=== PATIENT | female | born 1940 | race Caucasian/White ===

== ENCOUNTER 2019-01-29 15:01 | Outpatient (RCR) | payer MEDICARE, SELFPAY ==
[2019-01-30 09:20] LABS: Color, Urine Yellow (Yellow); Glucose, Dipstick Normal (Normal); Ketone-Dipstick Negative (Negative); Leukocyte Esterase-Dipstick 500 /ul (Negative); Nitrite-Dipstick Negative (Negative); Occult Blood-Urine 250 /ul (Negative); Protein-Dipstick 30 mg/dl (Negative); Specific Gravity, Urine 1.025 (1.002-1.030); Urine Bilirubin Dipstick Negative (Negative); Urine Clarity Cloudy (Clear); Urine Urobilinogen Normal (Normal)
== END 2019-01-31 23:59 ==
LOC: HHLAB 15:01
PROVIDERS: Family Provider Family Medicine; PCP Family Medicine; Referring Provider Family Medicine; Visit Provider Family Medicine
DX: S32.030D Wedge compression fracture of third lumbar vertebra, subsequent encounter for fracture with routine healing (principal); G20 Parkinson's disease; G25.81 Restless legs syndrome; N39.0 Urinary tract infection, site not specified
CPT/HCPCS: 81002; 87086; 87088

== ENCOUNTER → 2019-02-01 | Outpatient (CLI) | payer MEDICARE, SELFPAY ==
[2019-02-01 16:50] LABS: Bacteria 0 SEEN /hpf (None Seen); Mucous, Urine 0 SEEN /hpf (<or=2+)
[2019-02-01 16:53] LABS: Color, Urine Yellow (Yellow); Glucose, Dipstick Normal (Normal); Ketone-Dipstick 50 mg/dl (Negative); Leukocyte Esterase-Dipstick 500 /ul (Negative); Nitrite-Dipstick Negative (Negative); Occult Blood-Urine 50 /ul (Negative); Protein-Dipstick 30 mg/dl (Negative); Specific Gravity, Urine 1.025 (1.002-1.030); Urine Bilirubin Dipstick Negative (Negative); Urine Clarity Sl. Cloudy (Clear); Urine Urobilinogen Normal (Normal)
[2019-02-01 17:02] LABS: Red Blood Cells-Urine 0-5 SEEN /hpf (0-5); White Blood Cells 25-50 SEEN /hpf (0-5)
[2019-02-01 17:03] LABS: Amorphous Sediment 3+ URATE; Squamous Epithelial Cells - UA 0-5 SEEN /hpf (5-10)
== END | disposition home or self-care (01) ==
LOC: HH 16:46
PROVIDERS: Family Provider Family Medicine; PCP Family Medicine; Visit Provider Family Medicine
DX: G25.81 Restless legs syndrome (principal); G20 Parkinson's disease; S32.030D Wedge compression fracture of third lumbar vertebra, subsequent encounter for fracture with routine healing
CPT/HCPCS: 81001; 87086; 87088

== ENCOUNTER 2019-02-11 15:09 | Outpatient (RCR) | payer MEDICARE, SELFPAY ==
[2019-02-11 16:58] LABS: Color, Urine Yellow (Yellow); Glucose, Dipstick Normal (Normal); Ketone-Dipstick Negative (Negative); Leukocyte Esterase-Dipstick 500 /ul (Negative); Nitrite-Dipstick Positive (Negative); Occult Blood-Urine 25 /ul (Negative); Protein-Dipstick 15 mg/dl (Negative); Specific Gravity, Urine 1.015 (1.002-1.030); Urine Clarity Sl. Cloudy (Clear); Urine Urobilinogen 1 mg/dl (Normal)
[2019-02-11 17:00] LABS: Urine Bilirubin Dipstick 1 mg/dL (Negative)
== END 2019-03-02 23:59 ==
LOC: HHLAB 15:09
PROVIDERS: Family Provider Family Medicine; PCP Family Medicine; Referring Provider Family Medicine; Visit Provider Family Medicine
DX: S32.030D Wedge compression fracture of third lumbar vertebra, subsequent encounter for fracture with routine healing (principal); G20 Parkinson's disease; G25.81 Restless legs syndrome; N39.0 Urinary tract infection, site not specified
CPT/HCPCS: 81002; 87086; 87088

== ENCOUNTER 2019-03-10 14:33 | Emergency (ER) | payer MEDICARE, SELFPAY ==
[2019-03-10 14:34] VITALS: BP 139/69; PULSE 94; RESP 16; TEMP 36.9; O2SAT 97; BMI 30.3
--- NOTE | 2019-03-10 15:20 | ED.VIS.GEN ---
History of Present Illness Chief Complaint: Other, Pain/Inj Informant: Patient Onset: Days - Onset Sunday day after bilateral toxic epidural injection Context: Sudden Onset Timing: Continuous Quality: Pain Location: Low back Current Severity: Mild Maximum Severity: Severe Worsened by: Any type of movement Relieved by: Nothing Associated Symptoms: No new symptoms other than than increased pain radiating posterior LLE Narrative: Patient is an elderly woman who presents by ambulance because she could not go to Dr. Phelps's office and apparently physical therapy spoke to Dr. Thompson and was instructed to have her come to the emergency department. After further questioning was determined that the squad cannot transport her to a physician's office. She is a very poor informant. Spoke with Dr. Thompson and his office staff. March 04 she had an injection toxic area bilaterally. She denies bowel incontinence. Please had urinary incontinence for 1.5 years. She has nonuse of her right lower extremity secondary to prior stroke. She denies fever, chills night sweats. She states she did quite well day of injection. Day after injection she was in horrible pain. She navigates by wheeling herself in a wheelchair and will use her walker to assist stand up to transfer to commode. Prior similar symptoms: No Recent Illness/Hospitalization: Yes - Read narrative Past Medical History - Allergies and Home Meds Allergies/Adverse Reactions: Allergies morphine Allergy (Verified 03/10/19 14:40) Anaphylaxis Penicillins [PCN] Allergy (Verified 03/10/19 14:40) Unknown Primary Care Physician: Viraj Alvares DO [Primary Care Provider] - Prior records reviewed: Yes - Talk with Dr. Stokes and office staff Surgical History: - - Back surgery. Patient is not certain what was done Lives: Alone Smoking Status: Former smoker Alcohol: None Review of Systems General: Denies: Chills, Fever, Malaise, Sweats, Weight loss Cardiovascular: Denies: Chest pain, Palpitations, Heart racing Respiratory: Denies: Dyspnea, Cough, Dyspnea on exertion Gastrointestinal: Denies: Abdominal pain, Nausea, Vomiting, Diarrhea, Constipation, Melena, Hematochezia Genitourinary: Denies: Dysuria, Frequency Musculoskeletal: Reports: Back pain, Extremity Pain - Posterior left lower extremity. Denies: Myalgias, Arthralgias, Neck pain, Swelling Skin: Denies: Rash Neurological: Reports: Parasthesia - Left lower extremity. Patient unable to describe where she has numbness.. Denies: Headache Hematologic: Denies: Easy bruising, Easy bleeding Allergy: Denies: Uticaria, Swelling of the mouth Physical Exam Vital Signs/Narrative: Vital Signs Temp Pulse Resp BP Pulse Ox 03/10/19 14:34 98.5 F 94 16 139/69 H 97 General: Well nourished, Well developed, No Acute Distress Head: Normocephalic, Atraumatic Eyes: Perrl, EOMI ENT: Moist mucous membranes, No rhinorrhea Neck: Supple, Nontender Cardiovascular: Regular rate, Regular rhythm, No murmurs Respiratory: No distress, CTA bilaterally, Chest nontender Abdomen: Soft, Nontender, Nondistended, Normal bowel sounds Back: Normal Inspection. Negative for: Nontender - Tenderness over the sacrum bilaterally. There is no erythema, warmth, fluctuance noted., Spinal tenderness Extremities: Nontender, No edema, - - Has scar secondary to right and left total knee arthroplasty. Skin: Normal color, No rash Neurological: Alert, Oriented x3, Cranial nerves II-XII grossly intact, Normal Strength, Normal Sensation, Normal DTR - 1+ patella and ankle and symmetric. Patient does have bilateral Babinski sign. Psychological: Depressed Diagnostic/Tx/Re-eval - Medical Decision Making Since patient reports anaphylaxis to morphine and does not know what she can or cannot take and the only new complaint is return of pain to level of intensity prior to injection. She has no new neurologic symptoms. After spending 25 minutes with patient, speaking with Dr. Phelps and office staff case management was consulted to determine what could be done for this patient based on her history, complaints and allergies. Case management did see patient. She informed patient and daughter that she does not meet criteria for admission. Daughter states she will not be able to get her from the emergency room until 9 PM. Therefore patient will wait in the emergency department until daughter was able to pick her up. ED Disposition - Plan for ED Patient: Disposition: Home or Assisted Living Diagnosis: Low back pain radiating down leg Instructions: BACK PAIN (Acute or Chronic) Referrals: Viraj Alvares DO [Primary Care Provider] - As Needed Jovan Arroyo MD [STAFF PHYSICIAN] - 3-5 Days if not improving
--- NOTE | 2019-03-10 16:15 | CM.ED ---
Social Work Consult: Discharge Planning Informant: Dr. Keaton Pugh stating to not be sure what the plan is for patient as patient is stating that Dr. Arroyo's office wanted patient to come to the ED, but when Dr. Pugh spoke with Dr. Arroyo, Dr. Arroyo was not aware that patient was coming into the ED. Spoke with patient in room. Patient informing this social service director that Dr. Arroyo wanted to see patient in the office and that since patient did not have transportation to the office Dr. Arroyo's office advised patient to come to the ED. This social service director stating that it is unclear what the ED is to do for patient at this time as patient needs to see Dr. Arroyo. This social service director recommending for patient to go to Dr. Arroyo's office. Patient reporting to not have transportation and that patient daughter will not be getting off work until 5:30 and then patient daughter needs to get another vehicle as patient is unable to get into patient daughters vehicle and it might be 9pm until patient daughter is able to come and pick patient up. Patient reporting to get around the home with a wheelchair and a front wheeled walker for transfers to commode. Patient reporting to live alone and to have a ramp to enter the home. This social service director inquired about supports within the home. Patient reporting to currently have [facility] and to have a medical alert system. Patient stating to have also attempted to set up [facility] services in the past but to not be able to get things set up due to [facility] not calling patient back. Patient agreeable to this social service director contacting home health about current services. This social service director spoke with Alivia, patient P.Ayad Bunch stating that patient qualified for [facility] services but that patient had an out of pocket cost of $220/month. This social service director broached [facility] outcome to patient, patient stating to be aware of this and to have been waiting a return phone call to set up the services. This social service director encouraged patient to continue to get in contact with [facility] with the goal of setting up aides within the home. Patient reporting to also be waiting on a phone call from [facility] services. Patient stating that patient was doing okay with mobility within the home until a P.T. told patient to no longer get up and walk and to only use the wheelchair. Patient stating to believe that staying in the wheelchair has made patient weaker and thus making living within the home harder. Patient stating to not be interested in assisted living or [place] as patient had a [place] a [place] and is unable to afford assisted living. Patient daughter and granddaughter are patient main source for transportation, but both parties work full-time and are limited on when they are able to provide transportation for patient. Patient reporting to have a neighbor that assist patient with grocery shopping. Patient reporting no needs at home. This social service director encouraging patient to follow up with [facility] referral at this could be a good option for patient. Patient agreeable to this social service director talking to patient daughterEstefani. Support provided to patient. Telephone call to Estefani Jara stating frustration with patient and that Estefani has been trying to get patient to move to a [place] for a few years now. Estefani planning to come and pick pack worker patient later this evening and aware of the miscommunication with Dr. Arroyo's office. Estefani voicing no further concerns. Ayad Song MSW, JOVANY
[2019-03-10 17:18] VITALS: BP 125/60; PULSE 94; RESP 16; O2SAT 99
== END 2019-03-10 18:59 | disposition home or self-care (01) ==
PROVIDERS: Emergency Provider Emergency Medicine; Family Provider Family Medicine; PCP Family Medicine
DX: M54.5 Low back pain (principal); R20.2 Paresthesia of skin; M79.605 Pain in left leg; Z86.73 Personal history of transient ischemic attack (TIA), and cerebral infarction without residual deficits; Z87.891 Personal history of nicotine dependence
CPT/HCPCS: 99284

== ENCOUNTER 2020-07-25 19:36 | Observation (INO) | payer MEDICARE, MEDICAID, SELFPAY ==
[2020-07-25 19:42] VITALS: BP 118/59; PULSE 115; RESP 16; TEMP 36.8; O2SAT 95; BMI 34.5
--- NOTE | 2020-07-25 20:06 | CT_ITS ---
STUDY: CT BRAIN WITHOUT CONTRAST REASON FOR EXAM: Female, 80 years old. Generalized illness left sided shaking emesis RADIATION DOSAGE (If Supplied By Facility): CTDIvol = ( 44.99 ) mGy, DLP = ( 863.60 ) mGycm TECHNIQUE: Transaxial CT imaging of the brain was performed without administration of intravenous contrast material. Individualized dose optimization techniques were used for this CT. COMPARISON: No relevant priors. FINDINGS: Brain parenchyma is without focal lesions, mass effect, acute intracranial hemorrhage, extra parenchymal fluid collections, hydrocephalus or herniation. The skull is intact. CT/Brain/Head without Contrast IMPRESSION: 1. Normal CT brain. Electronically Signed: Magali Alvarez, at 20:50 EST Tel , Service support ,
--- NOTE | 2020-07-25 20:09 | ED.VISSUMM ---
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 She has had kidney stones. She is in multiple surgeries. Reportedly today around 1:30 PM at the nursing she started not feeling well she was nauseated. Nursing staff said she started nausea vomiting and she was shaking on her left side. She also complained of a global headache she is a history of migraines but this was a little different than her migraines. No fever. No abdominal pain. Physical Examination: Elderly female no acute distress vital signs stable afebrile. Pulse ox 95% on room air no signs hypoxia. H EENT exam unremarkable moist with membranes. No facial droop. Normal speech. Neck nontender. Lungs clear to auscultation bilaterally. Heart tachycardic rate about 115 no murmur. Breath sounds equal symmetrical. Abdomen soft nontender normal bowel sounds no peritoneal signs. No signs of obstruction. No distention. Patient has paralysis right upper and lower extremity that is not movements from prior stroke she has normal range of motion and strength to the left upper and left lower extremity. Neurologically she is awake and alert she is answering questions following commands. She has normal speech. She has no facial droop. Again paralysis right upper and lower extremity which is chronic from an old CVA. Test Results: Chest x-ray portable 1 view read by myself shows no acute abnormality. Normal cardiac silhouette. No infiltrate. Radiologist also read the film and agrees. CAT scan of the brain without contrast shows no acute abnormality. Read as normal by the radiologist and I reviewed the film. CBC shows a white count of 9. Hemoglobin 13. No bands chemistries unremarkable normal creatinine gap. UA positive for blood negative nitrates 10-25 white cells 10-25 red cells rare bacteria this will be treated UTI this was a cath specimen. Lactic acid 1.6 blood cultures pending. Prior rapid Covid at the prison was negative. Emergency Department Course and Treatment: I spoke to the nurse at the prison. She told me a similar story with the patient having nausea vomiting and shaking on her left side. They did a rapid Covid at the prison which was reportedly negative. Patient received IV fluids. Zofran for nausea. Tylenol for headache. CAT scan labs are being obtained. She still complained of a headache was given dose of fentanyl. And was started on IV Rocephin for UTI. Urine culture and blood cultures are being obtained. Treatment Plan: Hospitalist on page for admission. Disposition: Admission Impression: Acute nausea and vomiting Acute headache History of CVA with right-sided paralysis Acute UTI This note was generated with [employer] dictation software. It may contain incorrect words, spelling, and punctuation that were not noted in review of the chart prior to signing ED Disposition - Plan for ED Patient: Referrals: Viraj Alvares DO [COURTESY STAFF PHYSICIAN] -
[2020-07-25 20:15] LABS: Absolute Lymphocyte Count 1.42 X10^3/uL (0.83-4.51); Absolute Neutrophil Count 7.3 X10^3/uL (2.0-7.7); Basophil# 0.02 X10^3/uL; Basophil% 0.2 % (0-1); Eosinophil# 0.03 X10^3/uL; Eosinophils% 0.3 % (0-5); Hematocrit 42.6 % (37-47); Hemoglobin 13.6 g/dL (12.0-15.0); Lymphocyte # 1.42 X10^3/ul (4.0); Lymphocyte % 15.5 % (19-41); Mean Corp Hgb Conc 31.9 g/dL (32-36); Mean Corpuscular Hgb 31.3 pg (27.0-32.0); Mean Corpuscular Volume 98.2 fL (81-99); Monocyte# 0.35 X10^3/uL; Monocyte% 3.8 % (0-10); NRBC Flagged by Analyzer 0 % (0-5); Neutrophil # 7.34 X10^3/uL (2.7-7.7); Neutrophil % 79.9 % (47-70); Platelet Count 115 K/mm3 (150-450); RBC Distribution Width CV 13.1 % (11.6-14.6); Red Blood Count 4.34 M/mm3 (4.2-5.4); White Blood Count 9.2 K/mm3 (4.4-11.0)
[2020-07-25] MEDS: 0.9% Normal Saline 1,000 ML 1000 ML IV (20:18)
[2020-07-25] MEDS: Ondansetron 4 MG/2 ML Vial IV (20:19)
[2020-07-25] MEDS: Acetaminophen 500 MG Tablet 1000 MG PO (20:19)
[2020-07-25 20:24] LABS: Anion Gap 6 (5-15); BUN 16 mg/dL (7-18); BUN/Creat Ratio 28.9 RATIO (10-20); Calcium,Total 8.9 mg/dL (8.5-10.1); Chloride 106 mmol/L (98-107); Creatinine, Serum 0.55 mg/dL (0.55-1.02); EST Glomerular Filtration Rate 113 mL/min (>60); Est Glom Filt Rate - Afr Amer 136 mL/min (>60); Glucose 142 mg/dL (74-106); Potassium 4.2 mmol/L (3.5-5.1); Sodium Level 141 mmol/L (136-145)
[2020-07-25 20:40] LABS: Mucous, Urine 0 SEEN /hpf (<or=2+)
--- NOTE | 2020-07-25 20:40 | RAD_ITS ---
STUDY: X-RAY CHEST REASON FOR EXAM: Female, 80 years old. chills, vomiting TECHNIQUE: Frontal view of the chest COMPARISON: None. FINDINGS: The lungs are clear and expanded. There is no demonstrated pleural abnormality. Normal size heart. Normal mediastinum and zulma. Normal visualized pulmonary arteries. Normal visualized aortic arch and descending thoracic aorta. Normal visualized thoracic spine. Normal visualized ribs, clavicles, and shoulders. There is no demonstrated abnormality of the visualized soft tissue structures of the upper abdomen. RAD/Chest 1 View (Portable) IMPRESSION: Normal x-ray examination of the chest. Electronically Signed: Magali Alvarez, at 20:50 EST Tel , Service support ,
[2020-07-25 20:42] VITALS: BP 105/47; PULSE 104; RESP 13; TEMP 37; O2SAT 95
[2020-07-25 20:55] LABS: Color, Urine Yellow (Yellow); Glucose, Dipstick Normal (Normal); Ketone-Dipstick Negative (Negative); Leukocyte Esterase-Dipstick 500 /ul (Negative); Nitrite-Dipstick Negative (Negative); Occult Blood-Urine 150 /ul (Negative); Protein-Dipstick 30 mg/dl (Negative); Urine Bilirubin Dipstick Negative (Negative); Urine Clarity Cloudy (Clear); Urine Urobilinogen Normal (Normal)
[2020-07-25 20:58] LABS: Lactic Acid 1.6 mmol/L (0.4-1.9)
[2020-07-25 21:01] LABS: Amorphous Sediment 1+; Bacteria RARE /hpf (None Seen); Red Blood Cells-Urine 10-25 SEEN /hpf (0-5); Squamous Epithelial Cells - UA 0-5 SEEN /hpf (5-10); Transitional Epithelial - Ur 0-5 SEEN /hpf (0-5); White Blood Cells 10-25 SEEN /hpf (0-5)
[2020-07-25 21:40] VITALS: BP 103/52; PULSE 105; RESP 15; TEMP 36.9; O2SAT 96
[2020-07-25 22:30] VITALS: BP 103/60; PULSE 102; RESP 13; TEMP 36.9; O2SAT 95
--- NOTE | 2020-07-25 22:56 | PCM.HP.STD ---
Problem List (1) Intractable migraine Status: Acute Qualifiers: Migraine type: unspecified (2) UTI (urinary tract infection) Status: Acute Qualifiers: Urinary tract infection type: site unspecified (3) History of stroke Status: Chronic (4) Hyperlipidemia Status: Chronic Qualifiers: Hyperlipidemia type: unspecified Qualified Code(s): E78.5 - Hyperlipidemia, unspecified (5) Obesity Status: Chronic Qualifiers: Obesity type: due to excess calories Obesity classification: adult class 2 (BMI 35 - 39.9) Serious obesity comorbidity presence: unspecified whether serious comorbidity present Body mass index: BMI 36.0-36.9 Qualified Code(s): E66.09 - Other obesity due to excess calories; Z68.36 - Body mass index [BMI] 36.0-36.9, adult (6) Restless leg syndrome Status: Chronic (7) Chronic kidney disease, stage III (moderate) Status: Chronic Qualifiers: Chronic kidney disease stage 3 subtype: unspecified whether 3a or 3b Qualified Code(s): N18.30 - Chronic kidney disease, stage 3 unspecified History of Present Illness Date of Admission: 07/25/20 Chief Complaint: Intractable migraine, N/V/light and sound sensitivity, dysuria/chills The patient is a 80 y/o F from SNF w/ PMHx: Hx CVA with R sided hemiparesis, Obesity, GERD, Chronic neuropathy, GERD, HLD, RLS who presents to the [facility] ED on 07/25/20 with history of onset approximately 130 significant fatigue, malaise, intractable nausea and emesis with chills specifically noted to be shaking primarily the left side of her body secondary to history of prior CVA with right-sided hemiparesis with additional complaint of onset of frontal throbbing migraine with light and sound sensitivity rated initially to 10 out of 10 in severity however following ED pain regimen improved to 6 out of 10 in severity upon evaluation. She notes it is similar to prior migraines but more severe and has not let up. She does state that she has felt as though she is had dysuria with some concern for urinary tract infection. Work-up in the ED included T 98.2, heart rate 115, BP 118/59, respiratory rate 16, 95% on room air, CBC with WC 9.2, hemoglobin 13.6, platelet 115 without marked shift, BMP with glucose 142 otherwise not marked appearing, lactic acid 1.6, urinalysis with specific raphe 1.020, 150 occult blood, negative nitrite, 500 leukocyte esterase, urine WBCs 10-25 with rare bacteria noted, urine culture pending per ED, chest x-ray with no acute cardiopulmonary findings, CT of the brain with no acute intracranial findings, rapid Covid testing negative. In the ED patient administered normal saline, Zofran, fentanyl 25 mcg IV x1, Tylenol, Rocephin 1 g IV x1. Past Medical History Past Medical History (Chronic Problems): Chronic Problems History of stroke (Chronic) Hyperlipidemia (Chronic) Obesity (Chronic) Restless leg syndrome (Chronic) Chronic kidney disease, stage III (moderate) (Chronic) Allergies morphine Allergy (Verified 07/25/20 19:41) Anaphylaxis Penicillins [PCN] Allergy (Verified 07/25/20 19:41) Unknown Home Medications: Ambulatory Orders Medication Instructions Recorded Aspirin/Acetaminophen/Caffeine 1 ea PO [id number] 07/25/20 [Excedrin Extra Strength Caplet] Atorvastatin Calcium [Lipitor] 10 mg PO DAILY 07/25/20 Gabapentin [Neurontin] 100 mg PO BID 07/25/20 Lansoprazole [Prevacid] 15 mg PO DAILY 07/25/20 Magnesium Hydroxide [Milk of 30 ml PO DAILY PRN 07/25/20 Magnesia] Polyethylene Glycol 3350 17 gm PO DAILY 07/25/20 Ropinirole HCl 0.25 mg PO QHS 07/25/20 Tramadol HCl 50 mg PO BID PRN 07/25/20 Surgical History: - - Bilateral total knee replacement, foot surgery, tonsillectomy, appendectomy, cholecystectomy, x1, lumbar back surgery. 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 Tobacco Use: Non-smoker Alcohol: None Drugs: None - *Family History Maternal History Items: Heart Disease Paternal History Items: Dementia Review of Systems Constitutional: Reports: Anorexia, Chills, Malaise, Weakness, Fatigue. Denies: Fever, Weight Change HEENT: Reports: Head Aches, - - Light and sound sensitivity.. Denies: Sinus Congestion, Sinus Drainage Cardiovascular: Denies: Chest Pain, Palpitations Respiratory: Denies: Cough, Shortness of breath at rest, Sputum production Gastrointestinal: Reports: Nausea, Vomiting. Denies: Abdominal Pain Genitourinary: Reports: Dysuria Musculoskeletal: Reports: Back Pain, Joint Pain, Leg Pain. Denies: Joint Tenderness Skin: Denies: Rash, Wounds Neurological: Reports: Slurred speech, Focal weakness, Numbness. Denies: Tingling Psychiatric: Denies: Anxiety, Depression, Homicidal Ideations, Suicidal Ideations Hematologic/ Lymphatic: Denies: Easy Bruising, Easy Bleeding VTE Information - Inpt Only VTE Present on Admission: No VTE Mechan Device Prophylaxis: SCD's VTE Pharm Prophylaxis ordered?: Yes Patient Problems: Active and Suspected Problems Intractable migraine (Acute) UTI (urinary tract infection) (Acute) Subjective: Patient seated upright in the ED bed, fatigued, notes light and sound sensitivity. Objective: Physical Examination: General: awake, alert, oriented x 3 and cooperative, seated upright in the ED bed, uncomfortable appearing, notes light and sound sensitivity ongoing. Skin: normal color, turgor, no icterus, cyanosis. HEENT: AT/NC, EOMI, PERRLA, moderately dry MM, no carotid bruits or JVD noted. Lungs: CTA bilaterally, moderate effort, moderate decrease BL bases, no rales, ronchi or wheezing. Heart: Tachycardic with regular rhythm; no gallop, rub audible. Abdomen: soft, obese, some mild suprapubic discomfort, ND, normal BS, no HSM. Extremities: no cyanosis or clubbing, chronic right-sided hemiplegia, mild bilateral ankles edema, nonpitting. Neurological: patient awake, alert, oriented as noted; cognitive function suspect baseline intact; mild slurred speech likely secondary to stroke, chronic; pupils equally reactive to light and accomodation; cranial nerves II-XII grossly normal, chronic right-sided hemiplegia unchanged, strength severely globally decreased. Psychiatric: affect appears fatigued, mildly uncomfortable appearing, flat, no acute evidence of depressive or anxiety feelings. - Physical Exam Vitals/I&O's: Vital Signs Temp Pulse Resp BP Pulse Ox 98.5 F 102 H 13 103/60 95 07/25/20 22:30 07/25/20 22:30 07/25/20 22:30 07/25/20 22:30 07/25/20 22:30 Oxygen Delivery Method Room Air Weight: 177 lb 0.499 oz Body Mass Index (BMI) 34.5 Intake and Output for Last 24 Hours 07/23/20 07/24/20 07/25/20 23:59 23:59 23:59 Intake Total 1000 / 1000 Balance 1000 / 1000 Laboratory Results 07/25/20 19:50: WBC 9.2, RBC 4.34, Hgb 13.6, Hct 42.6, MCV 98.2, MCH 31.3, MCHC 31.9 L, RDW Std Deviation 47.0 H, RDW Coeff of Valerie 13.1, Plt Count 115 L, MPV 12.0, Immature Gran % (Auto) 0.300, Neut % (Auto) 79.9 H, Lymph % (Auto) 15.5 L, Swain % (Auto) 3.8, Eos % (Auto) 0.3, Baso % (Auto) 0.2, Absolute Neuts (auto) 7.3, Absolute Lymphs (auto) 1.42, Nucleated RBC % 0 07/25/20 19:50: Sodium 141, Potassium 4.2, Chloride 106, Carbon Dioxide 29.0, Anion Gap 6, BUN 16, Creatinine 0.55, Estim Creat Clear Calc 33.30, Est GFR (MDRD) Af Amer 136, Est GFR (MDRD) Non-Af 113, BUN/Creatinine Ratio 28.9 H, Glucose 142 H, Calcium 8.9 07/25/20 20:17: Lactic Acid 1.6 07/25/20 20:30: Urine Color Yellow, Urine Clarity Cloudy, Urine pH 6.0, Ur Specific Andes 1.020, Urine Protein 30 H, Urine Glucose (UA) Normal, Urine Ketones Negative, Urine Occult Blood 150 H, Urine Nitrite Negative, Urine Bilirubin Negative, Urine Urobilinogen Normal, Ur Leukocyte Esterase 500 H, Urine RBC 10-25 SEEN, Urine WBC 10-25 SEEN, Ur Squamous Epith Cells 0-5 SEEN, Ur Transition Epith Cell 0-5 SEEN, Amorphous Sediment 1+, Urine Bacteria RARE, Urine Mucus 0 SEEN Current Medications Ceftriaxone Sodium (Rocephin) 1 gm in 50 mls @ 100 mls/hr IV X1 ONE Stop: 07/25/20 23:10 Assessment/Plan All Active Problems Intractable migraine (Acute) UTI (urinary tract infection) (Acute) The patient is a 80 y/o F from SNF w/ PMHx: Hx CVA with R sided hemiparesis, Obesity, GERD, Chronic neuropathy, GERD, HLD, RLS who presents to the [facility] ED on 07/25/20 with history of onset approximately 130 significant fatigue, malaise, intractable nausea and emesis with chills specifically noted to be shaking primarily the left side of her body secondary to history of prior CVA with right-sided hemiparesis with additional complaint of onset of frontal throbbing migraine with light and sound sensitivity rated initially to 10 out of 10 in severity in addition to dysuria. 1. Acute Persistent Intractable Migraine: Will admit to medical surgical floor, hold narcotic therapy give this may exacerbate migraine, initiate IV VPA 500mg Q6 hours, IV Decadron 4mg Q6 hours, IV Toradol 30mg Q6 hours prn and PO Neurontin 300mg TID with meals. If patient STRONG does not improve will proceed with MRI of brain with MRA of head. 2. Acute Urinary Tract Infection: UA upon ED evaluation minimally remarkable, however pending UCx, continue IVFs, monitor I/Os, continue IV Rocephin w/ transition as able pending sensitivities and speciation or discontinuation if no marked growth. 3. Hyperglycemia: Suspect likely stress response, will obtain hemoglobin A1c to be cautious 4. Chronic neuropathy, radiculopathy: We will continue patient home Neurontin and tramadol as needed regimen. 5. Restless leg syndrome: We will continue patient home Requip regimen. 6. Hyperlipidemia: Continue home statin regimen. 7. Obesity: Weight loss and lifestyle changes encouraged. 8. History of CVA: Chronic right-sided hemiplegia, will continue patient aspirin, statin therapy, not on any hypertensive regimen with no history of high blood pressure, nondiabetic, will continue every 2 positional changes, barrier agents as needed. 9. Chronic Kidney Disease Stage III: Admission BUN/Cr 16/0.55, suspect near baseline but will plan repeat BMP in AM. 10. DVT prophylaxis: SCDs, Lovenox. 11. CODE status: Patient HCPJAG is Berny Ybarra her ex- and living will is currently in place. Discussed CODE status at length including difference between FULL code, DNR-CCA and DNR-CC status. Following discussions about the differences in these status, requested Full Code status. Advanced Care Planning Face to Face Time: 16 minutes. OBSV E&M: 20868 Initial observation care L3 Procedures: [id number] Advncd Care Plan 30 Min
--- NOTE | 2020-07-25 23:16 | ED.RN ---
[facility] was called by this RN and informed of pt admission. This RN asked for daughters phone number. The RN at the [facility] did not know the number but was looking into it and then will call this RN back so that we are able to update family on pt admission.
[2020-07-25] MEDS: Ceftriaxone 1 GM/50 ML BAG IV (23:21)
[2020-07-25] MEDS: fentaNYL 100 MCG/2 ML Ampul 25 MCG IV (23:27)
[2020-07-25 23:29] VITALS: BP 108/62; PULSE 102; RESP 11; TEMP 36.9; O2SAT 93
[2020-07-25 23:30] VITALS: BP 106/60; PULSE 104; RESP 13; TEMP 36.9; O2SAT 93
[2020-07-26] VITALS (12 sets, daily range): BP systolic 105–133; BP diastolic 53–71; PULSE 61–100; RESP 18; TEMP 36.4–37; O2SAT 93–97; BMI 36.6
[2020-07-26] MEDS: Ketorolac 15 MG/ML Vial IV ×3 (01:16→21:19)
[2020-07-26] MEDS: Famotidine 20 MG Tablet PO ×3 (01:16→21:28)
[2020-07-26] MEDS: Gabapentin 100 MG Capsule PO ×2 (01:16→06:23)
[2020-07-26] MEDS: dexAMETHasone 4 MG/ML Vial IV ×2 (01:17→06:23)
[2020-07-26] MEDS: 0.9% Normal Saline 1,000 ML 100 ML IV ×3 (01:18→21:14)
--- NOTE | 2020-07-26 02:07 | NURSING ---
PER CONVERSATION W/[facility] AND THE [facility], FLORY WILL CALL PT'S EX- TO OBTAIN PT'S DTR'S NEW CELL PHONE NUMBER. FLORY WILL ATTEMPT TO NOTIFY DTR THAT PT HAS BEEN ADMITTED.
[2020-07-26 05:52] LABS: Absolute Lymphocyte Count 1.16 X10^3/uL (0.83-4.51); Absolute Neutrophil Count 6.2 X10^3/uL (2.0-7.7); Basophil# 0.01 X10^3/uL; Basophil% 0.1 % (0-1); Eosinophil# 0.01 X10^3/uL; Eosinophils% 0.1 % (0-5); Hematocrit 39.4 % (37-47); Hemoglobin 12.7 g/dL (12.0-15.0); Lymphocyte # 1.16 X10^3/ul (4.0); Lymphocyte % 15.6 % (19-41); Mean Corp Hgb Conc 32.2 g/dL (32-36); Mean Corpuscular Hgb 31.5 pg (27.0-32.0); Mean Corpuscular Volume 97.8 fL (81-99); Mean Platelet Vol. 11.8 fl (6.2-12.0); Monocyte# 0.07 X10^3/uL; Monocyte% 0.9 % (0-10); NRBC Flagged by Analyzer 0 % (0-5); Neutrophil # 6.16 X10^3/uL (2.7-7.7); POSITIVE COUNT YES; Platelet Count 97 K/mm3 (150-450); RBC Distribution Width CV 13.2 % (11.6-14.6); RBC Distribution Width SD 47.4 fl (35.1-43.9); Red Blood Count 4.03 M/mm3 (4.2-5.4); White Blood Count 7.4 K/mm3 (4.4-11.0)
[2020-07-26 06:14] LABS: ALB/GLOB Ratio 0.7 RATIO (0.9-2.4); AST(SGOT) 16 U/L (15-37); Alanine Aminotransfer ALT/SGPT 12 U/L (13-56); Albumin, Serum 2.8 g/dL (3.2-5.0); Alkaline Phosphatase 102 U/L (45-117); Anion Gap 5 (5-15); BUN 13 mg/dL (7-18); BUN/Creat Ratio 25.6 RATIO (10-20); Calcium,Total 8.6 mg/dL (8.5-10.1); Chloride 110 mmol/L (98-107); Creatinine, Serum 0.51 mg/dL (0.55-1.02); EST Glomerular Filtration Rate 125 mL/min (>60); Est Glom Filt Rate - Afr Amer 151 mL/min (>60); Estimated Creatinine Clearance 61.85 ml/min; Globulin 3.9 g/dL (2.2-4.2); Glucose 115 mg/dL (74-106); Potassium 4.6 mmol/L (3.5-5.1); Protein, Total 6.7 g/dL (6.4-8.2); Sodium Level 141 mmol/L (136-145)
[2020-07-26] MEDS: 0.9% Saline Lock 10 ML Syringe IV (06:23)
[2020-07-26 07:46] LABS: Hemoglobin A1c 5.2 % (3.8-5.6)
--- NOTE | 2020-07-26 09:37 | CASEMGMT ---
Addendum entered by Yudith Subramanian 07/26/20 14:57: ARGENTINA faxed update clinicals to [facility]. Original Note: Social Work Note Pt is listed as being from [facility]. ARGENTINA placed a call to Mónica at [facility]. Mónica states pt is [facility]dc resident, is able to return when medically cleared. Mónica states if pt [facility] within 72 hours, pt will not new COVID test. Plan: Return to [facility] once medically cleared Yudith Subramanian CHEERLEADING COACH, CYBER SPECIAL AGENT
[2020-07-26] MEDS: proMETHazine 25 MG/ML Syringe 12.5 MG IV (10:10)
[2020-07-26] MEDS: Aspirin 81 MG TAB.CHEW PO (10:10)
[2020-07-26] MEDS: DiphenhydrAMINE 50 MG/ML Syringe 25 MG IV (10:13)
[2020-07-26] MEDS: dexAMETHasone 4 MG/ML Vial 2 MG IV (10:16)
[2020-07-26] MEDS: Menthol/Lanolin/Calamine/Znox 113 GM Tube 1 APPLIC TOPICAL ×2 (10:20→21:28)
[2020-07-26] MEDS: Nystatin Powder 15gm Bottle 1 APPLIC TOPICAL ×2 (10:20→21:28)
[2020-07-26] MEDS: Polyethylene Glycol 3350 17 GM PACKET PO (10:25)
[2020-07-26] MEDS: Pantoprazole Sodium 20 MG Tablet PO (10:25)
--- NOTE | 2020-07-26 11:01 | PN_ITS ---
Patient Problems: Active and Suspected Problems Intractable migraine (Acute) UTI (urinary tract infection) (Acute) Reason for Visit: migraine Subjective: still with headache. has been having STRONG since she was 22. Occurs several times/month. States she has never seen a specialist for her migraines. Vitals/I&O's: Vital Signs Temp Pulse Resp BP Pulse Ox 36.6 C 61 18 131/71 H 96 07/26/20 10:32 07/26/20 10:32 07/26/20 10:32 07/26/20 10:32 07/26/20 10:32 Oxygen Flow Rate (L/min) 2 Oxygen Delivery Method Room Air Weight: 84.5 kg Body Mass Index (BMI) 36.6 Intake and Output for Last 24 Hours 07/24/20 07/25/20 07/26/20 23:59 23:59 23:59 Intake Total 1000 / 1000 1073.33 / 1073.33 Balance 1000 / 1000 1073.33 / 1073.33 General: Alert, No apparent distress HEENT: Atraumatic, Normocephalic Oral: Moist Mucosa, No Gingival or Mucosal Lesions/ Ulcerations Neck: No Nodes, Thyroid Normal Size and Texture Lungs: Clear to auscultation, Normal air movement, No rhonchi, No wheeze, No rales Cardiovascular: Regular rate, Regular Rhythm, Normal S1, Normal S2 Abdomen: Bowel Sounds Present, Soft, Non Tender, Non-Distended, No Hepato- splenomegaly Extremities: No edema, No Calf Tenderness Psych/Mental Status: Normal Affect, Appropriate Microbiology Past 72 Hours 07/25/20 23:33 Mucosa - Nose SARS-CoV-2 Antigen (Rapid) - Final Laboratory Results 07/25/20 19:50: WBC 9.2, RBC 4.34, Hgb 13.6, Hct 42.6, MCV 98.2, MCH 31.3, MCHC 31.9 L, RDW Std Deviation 47.0 H, RDW Coeff of Valerie 13.1, Plt Count 115 L, MPV 12.0, Immature Gran % (Auto) 0.300, Neut % (Auto) 79.9 H, Lymph % (Auto) 15.5 L, [place] % (Auto) 3.8, Eos % (Auto) 0.3, Baso % (Auto) 0.2, Absolute Neuts (auto) 7.3, Absolute Lymphs (auto) 1.42, Nucleated RBC % 0 07/25/20 19:50: Sodium 141, Potassium 4.2, Chloride 106, Carbon Dioxide 29.0, Anion Gap 6, BUN 16, Creatinine 0.55, Estim Creat Clear Calc 33.30, Est GFR (MDRD) Af Amer 136, Est GFR (MDRD) Non-Af 113, BUN/Creatinine Ratio 28.9 H, Glucose 142 H, Calcium 8.9 07/25/20 19:50: Magnesium 2.0 07/25/20 20:17: Lactic Acid 1.6 07/25/20 20:30: Urine Color Yellow, Urine Clarity Cloudy, Urine pH 6.0, Ur Specific [place] 1.020, Urine Protein 30 H, Urine Glucose (UA) Normal, Urine Ketones Negative, Urine Occult Blood 150 H, Urine Nitrite Negative, Urine Bilirubin Negative, Urine Urobilinogen Normal, Ur Leukocyte Esterase 500 H, Urine RBC 10-25 SEEN, Urine WBC 10-25 SEEN, Ur Squamous Epith Cells 0-5 SEEN, Ur Transition Epith Cell 0-5 SEEN, Amorphous Sediment 1+, Urine Bacteria RARE, Urine Mucus 0 SEEN 07/26/20 05:30: WBC 7.4, RBC 4.03 L, Hgb 12.7, Hct 39.4, MCV 97.8, MCH 31.5, MCHC 32.2, RDW Std Deviation 47.4 H, RDW Coeff of Valerie 13.2, Plt Count 97 L, MPV 11.8, Immature Gran % (Auto) 0.300, Neut % (Auto) 83.0 H, Lymph % (Auto) 15.6 L, [place] % (Auto) 0.9, Eos % (Auto) 0.1, Baso % (Auto) 0.1, Absolute Neuts (auto) 6.2, Absolute Lymphs (auto) 1.16, Nucleated RBC % 0 07/26/20 05:30: Sodium 141, Potassium 4.6, Chloride 110 H, Carbon Dioxide 26.0, Anion Gap 5, BUN 13, Creatinine 0.51 L, Estim Creat Clear Calc 61.85, Est GFR (MDRD) Af Amer 151, Est GFR (MDRD) Non-Af 125, BUN/Creatinine Ratio 25.6 H, Glucose 115 H, Calcium 8.6, Total Bilirubin 0.50, AST 16, ALT 12 L, Alkaline Phosphatase 102, Total Protein 6.7, Albumin 2.8 L, Globulin 3.9, Alb umin/Globulin Ratio 0.7 L 07/26/20 05:30: Hemoglobin A1c 5.2 Current Medications Acetaminophen (Acetaminophen 325 Mg Tablet) 650 mg PO Q6H PRN PRN PRN Reason: Pain Score 1-10/Temp > 100.7 F Al Hydroxide/Mg Hydroxide (Mag Hydrox/Al Hydrox/Simeth 30 Ml Udc) 30 ml PO Q6H PRN PRN PRN Reason: Gastric Burning Aspirin (Aspirin 81 Mg Tab.Chew) 81 mg PO DAILY@0800 [facility] Last Admin: 07/26/20 10:10 Dose: 81 mg Documented by: Atorvastatin Calcium (Atorvastatin Calcium 10 Mg Tablet) 10 mg PO QHS [facility] Calamine/Phenol (Menthol/Lanolin/Calamine/Znox 113 Gm Tube) 1 applic TOPICAL BID [facility]; Protocol Last Admin: 07/26/20 10:20 Dose: 1 applicatio Documented by: Enoxaparin Sodium (Enoxaparin 30 Mg/0.3 Ml Syringe) 30 mg SC DAILY [facility] Last Admin: 07/26/20 09:12 Dose: Not Given Documented by: Famotidine (Famotidine 20 Mg Tablet) 20 mg PO BID [facility] Last Admin: 07/26/20 10:25 Dose: 20 mg Documented by: Guaifenesin (Guaifenesin 10 Ml Udc (200mg/10ml)) 20 ml PO Q4H PRN PRN PRN Reason: COUGH Hydralazine HCl (Hydralazine 20 Mg/Ml Vial) 10 mg IV Q4H PRN PRN PRN Reason: SBP > 160 Valproic Acid 500 mg/ Dextrose 55 mls @ 50 mls/hr IV Q6 [facility] Last Infusion: 07/26/20 07:28 Dose: Infused Documented by: Sodium Chloride () 1,000 mls @ 100 mls/hr IV .Q10H [facility] Last Admin: 07/26/20 10:26 Dose: 100 mls/hr Documented by: Ceftriaxone Sodium (Rocephin) 1 gm in 50 mls @ 100 mls/hr IV Q24H [facility] Sodium Chloride () 250 mls @ 15 mls/hr IV .[id number] PRN PRN Reason: Additional IVPB Infusion Ketorolac Tromethamine (Ketorolac 15 Mg/Ml Vial) 15 mg IV Q12 [facility] Stop: 07/26/20 22:01 Last Admin: 07/26/20 10:25 Dose: 15 mg Documented by: Magnesium Hydroxide (Magnesium Hydroxide 30 Ml Udc) 30 ml PO DAILY PRN PRN PRN Reason: Constipation Melatonin (Melatonin 3 Mg Tablet) 3 mg PO QHS PRN PRN PRN Reason: INSOMNIA Nystatin (Nystatin Powder 15gm Bottle) 1 applic TOPICAL BID [facility]; Protocol Last Admin: 07/26/20 10:20 Dose: 1 applicatio Documented by: Ondansetron HCl (Ondansetron 4 Mg/2 Ml Vial) 4 mg IV Q8H PRN PRN PRN Reason: NAUSEA/VOMITING Pantoprazole Sodium (Pantoprazole Sodium 20 Mg Tablet) 20 mg PO DAILY [facility] Last Admin: 07/26/20 10:25 Dose: 20 mg Documented by: Polyethylene Glycol (Polyethylene Glycol 3350 17 Gm Packet) 17 gm PO DAILY [facility] Last Admin: 07/26/20 10:25 Dose: 17 gm Documented by: Prochlorperazine Edisylate (Prochlorperazine 10 Mg/2 Ml Vial) 5 mg IV Q4H PRN PRN PRN Reason: Breakthrough nausea/vomiting Psyllium Hydrophilic Mucilloid (Psyllium 1 Packet) 1 packet PO DAILY PRN PRN PRN Reason: Constipation Senna/Docusate Sodium (Senna/Docusate Sodium 1 Tablet) 2 tablet PO BID PRN PRN PRN Reason: Constipation Sodium Chloride (0.9% Saline Lock 10 Ml Syringe) 10 - 40 ml IV UD PRN PRN Reason: SALINE FLUSH Last Admin: 07/26/20 06:23 Dose: 10 ml Documented by: Throat Lozenges (Benzocaine/Menthol 1 Lozenge) 1 lozenge MUCOUS MEM Q2H PRN PRN PRN Reason: SORE THROAT STROKE Vital Signs/Narrative: Vital Signs Temp Pulse Resp BP Pulse Ox 07/26/20 10:32 36.6 C 61 18 131/71 H 96 07/26/20 07:44 86 07/26/20 07:19 93 Medical Necessity - Tobacco Use Smoking Status: Former smoker - Patient quit cigarette tobacco usage least 45 years prior to current presentation with prior to this may be 1 pack/week. Tobacco Use: Non-smoker Assessment/Plan All Active Problems Intractable migraine (Acute) UTI (urinary tract infection) (Acute) 1. Migraine acute on chronic received a total of 8mg of dexamethasone, will give an additional 2mg for 10, then stop give Phenergan and diphenhydramine on valproic acid will need to follow up with neurology as outpt. check records from [place] where she had an MRI. NO NARCOTICS 2. H/O CVA on ASA and statin 3. Disposition: pending improvement of migraine. Inpatient E&M: 01723 Subs Hosp L2
[2020-07-26] MEDS: Ceftriaxone 1 GM/50 ML BAG IV (21:18)
[2020-07-26] MEDS: Atorvastatin Calcium 10 MG Tablet PO (21:28)
[2020-07-27] VITALS (7 sets, daily range): BP systolic 119–133; BP diastolic 57–66; PULSE 80–92; RESP 16–18; TEMP 36.8–36.9; O2SAT 94–96
[2020-07-27] MEDS: Aspirin 81 MG TAB.CHEW PO (08:35)
[2020-07-27] MEDS: DiphenhydrAMINE 25 MG Capsule PO (09:34)
[2020-07-27] MEDS: Pantoprazole Sodium 20 MG Tablet PO (09:35)
[2020-07-27] MEDS: proMETHazine 25 MG/ML Syringe 12.5 MG IV (09:35)
[2020-07-27] MEDS: Famotidine 20 MG Tablet PO (09:35)
[2020-07-27] MEDS: Enoxaparin 30 MG/0.3 ML Syringe SC (09:35)
[2020-07-27] MEDS: Polyethylene Glycol 3350 17 GM PACKET PO (09:35)
[2020-07-27] MEDS: Menthol/Lanolin/Calamine/Znox 113 GM Tube 1 APPLIC TOPICAL (09:36)
[2020-07-27] MEDS: Nystatin Powder 15gm Bottle 1 APPLIC TOPICAL (09:36)
[2020-07-27] MEDS: 0.9% Normal Saline 1,000 ML 100 ML IV (10:10)
--- NOTE | 2020-07-27 10:41 | CASEMGMT ---
Social Work Note SW met with pt. SW introduced self and role at [facility]. Pt is alert and orientated. Pt confirms that she is from [facility] and plan is to return. Plan: Return to [facility] once medically cleared Yudith Subramanian SLEEPING CAR PORTER, SUPERVISOR TELEPHONE INFORMATION
--- NOTE | 2020-07-27 12:46 | PCM.TXEXTCAR ---
- Diet 07/27/20 08:34 Diet: Regular - General Is pt able to select menu?: Yes - Routine Orders/Code Status Code Status: Full Code - Allergies/Procedures Done in Hospital Allergies/Adverse Reactions: Allergies morphine Allergy (Verified 07/25/20 19:41) Anaphylaxis Penicillins [PCN] Allergy (Verified 07/25/20 19:41) Unknown - Type of Care/Length of Stay Estimated LOS: More Than 30 Days Type of Care Needed: Penitentiary/Assisted Living Rehab Potential: Fair Prognosis: Fair - Additional Orders/Day of Discharge Day of Discharge: 07/27/20 - Dietary and Speech Recommendations Dietitian Recommendations/Changes: Will change diet to cardiac as intake established with solids. - Follow Up Care Primary Care Physician: Viraj Alvares DO [COURTESY STAFF PHYSICIAN] - Within 2 Weeks
--- NOTE | 2020-07-27 12:50 | PCM.DC.SUM ---
Discharge Date and Diagnosis - Problem List Patient Problems: Active and Suspected Problems Intractable migraine (Acute) UTI (urinary tract infection) (Acute) Date of Admission: 07/25/20 Date of Discharge: 07/27/20 - Primary Discharge Diagnosis Acute Problems: Active Problems Intractable migraine (Acute) UTI (urinary tract infection) (Acute) - Secondary Discharge Diagnosis Chronic Problems: Chronic Problems History of stroke (Chronic) Hyperlipidemia (Chronic) Obesity (Chronic) Restless leg syndrome (Chronic) Chronic kidney disease, stage III (moderate) (Chronic) Hospital Course and Treatment Imaging Results: Clinical Impression(s) from Imaging Studies Brain CT 07/25/20 20:06 IMPRESSION: 1. Normal CT brain. Electronically Signed: Magali Kim, at 20:50 EST Tel , Service support , Chest X-Ray 07/25/20 20:40 IMPRESSION: Normal x-ray examination of the chest. Electronically Signed: Sukishital Kim, at 20:50 EST Tel , Service support , Operations: None Procedures: None Summary of Care Provided: The patient is a 80 year old F presents with intractable migraine. Patient has been having a migraine off and on since she was 22 years old. Patient is never sought neurology evaluation for this. Patient just takes Excedrin Migraine which seems to alleviate it but did not help this time. Patient did receive a dexamethasone as well as Phenergan and diphenhydramine on the which helped. Today, the , headache came back but less severe. Gave her another dose of Phenergan and diphenhydramine which did help her. Patient was started on valproic acid which she will continue for prophylactic treatment of her migraine. Patient advised to follow-up neurology to see additional recommendations for her ongoing migraine treatment. Patient has multiple migraines per month and would benefit from chronic prophylactic treatment.[] UTI on UA. UCx still pending. Change ceftriaxone to cephalexin to complete 5 day course of antibiotics. Patient Problems: Active and Suspected Problems Intractable migraine (Acute) UTI (urinary tract infection) (Acute) - Physical Exam Vitals/I&O's: Vital Signs Temp Pulse Resp BP Pulse Ox 36.8 C 87 18 133/65 H 96 07/27/20 08:36 07/27/20 10:00 07/27/20 08:36 07/27/20 08:36 07/27/20 08:36 Oxygen Flow Rate (L/min) 2 Oxygen Delivery Method Room Air Weight: 84.5 kg Body Mass Index (BMI) 36.6 Intake and Output for Last 24 Hours 07/25/20 07/26/20 07/27/20 23:59 23:59 23:59 Intake Total 1000 / 1000 2928.33 / 2928.33 1938.33 / 1938.33 Output Total 525 / 525 1050 / 1050 Balance 1000 / 1000 2403.33 / 2403.33 888.33 / 888.33 General: Alert, Cooperative, No apparent distress HEENT: Atraumatic, Normocephalic Oral: Moist Mucosa, No Gingival or Mucosal Lesions/ Ulcerations Neck: No Nodes, Thyroid Normal Size and Texture Lungs: Clear to auscultation, Normal air movement, No rhonchi, No wheeze Cardiovascular: Regular rate, Regular Rhythm, Normal S1, Normal S2 Abdomen: Bowel Sounds Present, Soft, Non Tender, Non-Distended, No Hepato-splenomegaly Extremities: No edema, No Calf Tenderness Skin: No rashes, No breakdown Microbiology Past 72 Hours 07/25/20 20:30 Urine Catheter - Catheter Urine Culture - Preliminary GNR lactose counseling case manager Gram positive organism 07/25/20 23:33 Mucosa - Nose SARS-CoV-2 Antigen (Rapid) - Final Current Medications Acetaminophen (Acetaminophen 325 Mg Tablet) 650 mg PO Q6H PRN PRN PRN Reason: Pain Score 1-10/Temp > 100.7 F Al Hydroxide/Mg Hydroxide (Mag Hydrox/Al Hydrox/Simeth 30 Ml Udc) 30 ml PO Q6H PRN PRN PRN Reason: Gastric Burning Aspirin (Aspirin 81 Mg Tab.Chew) 81 mg PO DAILY@0800 [facility] Last Admin: 07/27/20 08:35 Dose: 81 mg Documented by: Atorvastatin Calcium (Atorvastatin Calcium 10 Mg Tablet) 10 mg PO QHS [facility] Last Admin: 07/26/20 21:28 Dose: 10 mg Documented by: Calamine/Phenol (Menthol/Lanolin/Calamine/Znox 113 Gm Tube) 1 applic TOPICAL BID [facility]; Protocol Last Admin: 07/27/20 09:36 Dose: 1 applicatio Documented by: Enoxaparin Sodium (Enoxaparin 30 Mg/0.3 Ml Syringe) 30 mg SC DAILY [facility] Last Admin: 07/27/20 09:35 Dose: 30 mg Documented by: Famotidine (Famotidine 20 Mg Tablet) 20 mg PO BID [facility] Last Admin: 07/27/20 09:35 Dose: 20 mg Documented by: Guaifenesin (Guaifenesin 10 Ml Udc (200mg/10ml)) 20 ml PO Q4H PRN PRN PRN Reason: COUGH Hydralazine HCl (Hydralazine 20 Mg/Ml Vial) 10 mg IV Q4H PRN PRN PRN Reason: SBP > 160 Valproic Acid 500 mg/ Dextrose 55 mls @ 50 mls/hr IV Q6 [facility] Last Admin: 07/27/20 11:53 Dose: 50 mls/hr Documented by: Sodium Chloride () 1,000 mls @ 100 mls/hr IV .Q10H [facility] Last Infusion: 07/27/20 11:54 Dose: 0 mls/hr Documented by: Ceftriaxone Sodium (Rocephin) 1 gm in 50 mls @ 100 mls/hr IV Q24H [facility] Last Infusion: 07/26/20 21:48 Dose: Infused Documented by: Sodium Chloride () 250 mls @ 15 mls/hr IV .[id number] PRN PRN Reason: Additional IVPB Infusion Magnesium Hydroxide (Magnesium Hydroxide 30 Ml Udc) 30 ml PO DAILY PRN PRN PRN Reason: Constipation Melatonin (Melatonin 3 Mg Tablet) 3 mg PO QHS PRN PRN PRN Reason: INSOMNIA Nystatin (Nystatin Powder 15gm Bottle) 1 applic TOPICAL BID [facility]; Protocol Last Admin: 07/27/20 09:36 Dose: 1 applicatio Documented by: Ondansetron HCl (Ondansetron 4 Mg/2 Ml Vial) 4 mg IV Q8H PRN PRN PRN Reason: NAUSEA/VOMITING Pantoprazole Sodium (Pantoprazole Sodium 20 Mg Tablet) 20 mg PO DAILY [facility] Last Admin: 07/27/20 09:35 Dose: 20 mg Documented by: Polyethylene Glycol (Polyethylene Glycol 3350 17 Gm Packet) 17 gm PO DAILY [facility] Last Admin: 07/27/20 09:35 Dose: 17 gm Documented by: Prochlorperazine Edisylate (Prochlorperazine 10 Mg/2 Ml Vial) 5 mg IV Q4H PRN PRN PRN Reason: Breakthrough nausea/vomiting Psyllium Hydrophilic Mucilloid (Psyllium 1 Packet) 1 packet PO DAILY PRN PRN PRN Reason: Constipation Senna/Docusate Sodium (Senna/Docusate Sodium 1 Tablet) 2 tablet PO BID PRN PRN PRN Reason: Constipation Sodium Chloride (0.9% Saline Lock 10 Ml Syringe) 10 - 40 ml IV UD PRN PRN Reason: SALINE FLUSH Last Admin: 07/26/20 06:23 Dose: 10 ml Documented by: Throat Lozenges (Benzocaine/Menthol 1 Lozenge) 1 lozenge MUCOUS MEM Q2H PRN PRN PRN Reason: SORE THROAT Discharge Diet: No Restrictions Discharge Activity: Return to Normal Activity Home Medications: Medications to take at Discharge Aspirin/Acetaminophen/Caffeine [Excedrin Extra Strength Caplet] 1 ea PO [id number] 07/25/20 Atorvastatin Calcium [Lipitor] 10 mg PO DAILY 07/25/20 Gabapentin [Neurontin] 100 mg PO BID 07/25/20 Lansoprazole [Prevacid] 15 mg PO DAILY 07/25/20 Magnesium Hydroxide [Milk of Magnesia] 30 ml PO DAILY PRN 07/25/20 Polyethylene Glycol 3350 17 gm PO DAILY 07/25/20 Ropinirole HCl 0.25 mg PO QHS 07/25/20 Acetaminophen [Tylenol Tablet] 650 mg PO Q6H PRN PRN tablet 07/27/20 Aspirin [Aspirin, Baby] 81 mg PO DAILY@0800 tab.chew 07/27/20 Cephalexin [Keflex] 250 mg PO Q8 #12 capsule 07/27/20 Naproxen [Naprosyn] 500 mg PO DAILY PRN PRN #1 tablet 07/27/20 Following Prescriptions Were Given to Patient: Cephalexin [Keflex] 250 mg PO Q8 #12 capsule Naproxen [Naprosyn] 500 mg PO DAILY PRN PRN #1 tablet PRN Reason: Headache Primary Care Physician: Viraj Alvares DO [COURTESY STAFF PHYSICIAN] - Within 2 Weeks Please Follow Up With: German Swan MD When: 1-2 months Disposition: Home Minutes spent on discharge:: 32 Patient Condition:: Fair Medical Necessity - Tobacco Use Smoking Status: Former smoker - Patient quit cigarette tobacco usage least 45 years prior to current presentation with prior to this may be 1 pack/week. Tobacco Use: Non-smoker Meaningful Use Info Meaningful Use Diagnoses (Choose all that apply): None applicable Inpatient E&M: 79648 Disch Hosp
--- NOTE | 2020-07-27 12:53 | CASEMGMT ---
MARCIA WALTON completed VAUGHAN form with patient. MARCIA WALTON explained VAUGHAN form to patient, patient voiced understanding. Patient signed VAUGHAN form and filed in chart. Patient provided with copy of signed VAUGHAN form. Patient had no further questions or concerns at this time.
--- NOTE | 2020-07-27 13:30 | CASEMGMT ---
Social Work Note Pt is medically ready for discharge back to [facility] today. ARGENTINA faxed completed discharge paperwork to [facility] including transfer to extended care facility, signed medication list, and any scripts. New COVID test is not needed as pt was at [facility] less then 72 hours and pt had rapid COVID done at [facility] before admitting to [facility]. ARGENTINA spoke with RN, pt has been bed bound will need cot transport. ARGENTINA accessed trip assistance and arranged transportation via cot for 3:00pm [facility]. Transportation form completed and placed on SNF folder and copy on pt's chart. ARGENTINA updated RN, pt on transportation time. ARGENTINA placed a call to Mónica at [facility] and updated her on discharge and transportation time. Plan: Return to [facility] retirement [facility] transporting pt via cot at 3:00pm ALPHONSE McbrideW
== END 2020-07-27 16:05 | disposition skilled nursing facility (03) ==
LOC: ED 20:19 → MS3 23:44
PROVIDERS: Admitting Provider Family Medicine; Emergency Provider Emergency Medicine; PCP Family Medicine; Referring Provider Family Medicine
DX: G43.919 Migraine, unspecified, intractable, without status migrainosus (principal); N39.0 Urinary tract infection, site not specified; N18.30 Chronic kidney disease, stage 3 unspecified; E78.5 Hyperlipidemia, unspecified; G25.81 Restless legs syndrome; E66.9 Obesity, unspecified; I69.351 Hemiplegia and hemiparesis following cerebral infarction affecting right dominant side; G62.9 Polyneuropathy, unspecified; K21.9 Gastro-esophageal reflux disease without esophagitis; Z68.36 Body mass index [BMI] 36.0-36.9, adult; Z79.899 Other long term (current) drug therapy; Z87.891 Personal history of nicotine dependence; R73.9 Hyperglycemia, unspecified
CPT/HCPCS: 70450; 71045; 80048; 80053; 81001; 83036; 83605; 83735; 85025; 87040; 87077; 87086; 87088; 87186; 87426; 96361; 96365; 96366; 96367; 96372; 96375; 96376; 97802; 99218; 99251; 99285; J7030; J7050; P9612; A4216; G0378; G0463; J2405

== ENCOUNTER 2021-06-24 23:35 | Emergency (ER) | payer MEDICARE, MEDICAID, SELFPAY ==
[2021-06-24 23:37] VITALS: BP 102/47; PULSE 103; RESP 22; TEMP 36.6; O2SAT 92; BMI 32.6
[2021-06-25] MEDS: Meclizine HCl 25 MG Tablet PO (00:04)
[2021-06-25] MEDS: diazePAM 5 MG Tablet 2.5 MG PO (00:04)
[2021-06-25 00:06] LABS: Absolute Lymphocyte Count 2.47 X10^3/uL (0.83-4.51); Basophil# 0.02 X10^3/uL; Basophil% 0.3 % (0-1); Eosinophil# 0.09 X10^3/uL; Eosinophils% 1.5 % (0-5); Hematocrit 43.2 % (37-47); Hemoglobin 14.1 g/dL (12.0-15.0); Lymphocyte # 2.47 X10^3/ul (0.83-4.51); Mean Corp Hgb Conc 32.6 g/dL (32-36); Mean Corpuscular Hgb 30.9 pg (27.0-32.0); Mean Corpuscular Volume 94.7 fL (81-99); Mean Platelet Vol. 11.6 fl (6.2-12.0); Monocyte# 0.39 X10^3/uL; Monocyte% 6.5 % (0-10); NRBC Flagged by Analyzer 0 % (0-5); Neutrophil # 3.04 X10^3/uL (2.7-7.7); Neutrophil % 50.5 % (47-70); Platelet Count 112 K/mm3 (150-450); RBC Distribution Width CV 13.7 % (11.6-14.6); RBC Distribution Width SD 47.8 fl (35.1-43.9); Red Blood Count 4.56 M/mm3 (4.2-5.4)
[2021-06-25 00:17] LABS: ALB/GLOB Ratio 0.7 RATIO (0.9-2.4); AST(SGOT) 17 U/L (15-37); Alanine Aminotransfer ALT/SGPT 10 U/L (13-56); Albumin, Serum 3.1 g/dL (3.2-5.0); Alkaline Phosphatase 112 U/L (45-117); Anion Gap 6 (5-15); BUN 18 mg/dL (7-18); BUN/Creat Ratio 34.4 RATIO (10-20); Calcium,Total 9.2 mg/dL (8.5-10.1); Chloride 107 mmol/L (98-107); Creatinine, Serum 0.52 mg/dL (0.55-1.02); EST Glomerular Filtration Rate 120 mL/min (>60); Est Glom Filt Rate - Afr Amer 145 mL/min (>60); Globulin 4.3 g/dL (2.2-4.2); Glucose 117 mg/dL (74-106); Lipase 112 U/L (73-393); Potassium 3.8 mmol/L (3.5-5.1); Protein, Total 7.4 g/dL (6.4-8.2); Sodium Level 141 mmol/L (136-145)
--- NOTE | 2021-06-25 00:36 | EDS_ITS ---
HPI History of Present Illness Chief Complaint: Nausea/Vomiting Narrative Narrative: Patient presenting for evaluation secondary to nausea vomiting and vertigo. Patient has a underlying history of stroke, restless leg, chronic kidney disease. Patient resides in a long-term. Patient states that at about 9 PM tonight she had an onset of dizziness. She does describe this as feeling similar to vertigo which she had had in the past, no real exacerbating relieving factors. Patient took her medication for her restless leg, and then states that she started to have intractable dry heaves. She denies any new onset of numbness or weakness. She denies any headaches. She does report that she has some tinnitus associated with this. Emesis was nonbloody nonbilious. Patient states that she has a history of a hernia on the right side of her abdomen that feels like it is getting somewhat larger associated with a large cholecystectomy scar. Review of systems otherwise negative. 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 Hyperlipemia Neuromuscular dysfunction of bladder, unspecified Other hammer toe(s) (acquired), right foot Polyneuropathy, unspecified Restless legs syndrome Urinary tract infection, site not specified Home Medications Magnesium Hydroxide [Milk Of Magnesia] 30 ml PO DAILY PRN 07/25/20 [History Last Taken Unknown] Polyethylene Glycol 3350 17 g PO DAILY 07/25/20 [History Last Taken Unknown] hfnfxuf-otexzplsptiyr-dmksrgfy 1 ea PO [id number] 07/25/20 [History Last Taken Unknown] atorvastatin 10 mg PO DAILY 07/25/20 [History Last Taken Unknown] gabapentin 100 mg PO BID 07/25/20 [History Last Taken Unknown] lansoprazole 15 mg PO DAILY 07/25/20 [History Last Taken Unknown] ropinirole 0.25 mg PO QHS 07/25/20 [History Last Taken Unknown] acetaminophen 650 mg PO Q6H PRN PRN tab 07/27/20 [Rx Last Taken Unknown] aspirin 81 mg PO DAILY@0800 tab.chew 07/27/20 [Rx Last Taken Unknown] cephalexin 250 mg PO Q8 #12 cap 07/27/20 [Rx Last Taken Unknown] naproxen 500 mg PO DAILY PRN PRN #1 tab 07/27/20 [Rx Last Taken Unknown] valproic acid 250 mg PO BID #60 cap 07/27/20 [Rx Last Taken Unknown] cephalexin 500 mg PO Q12 #14 capsule 06/25/21 [Rx Last Taken Unknown] meclizine 25 mg PO 4X/DAY PRN PRN #20 tab 06/25/21 [Rx Last Taken Unknown] Allergy/AdvReac Type Severity Reaction Status Date / Time morphine Allergy Anaphylaxis Verified 06/24/21 23:36 Penicillins [PCN] Allergy Unknown Verified 06/24/21 23:36 Social History Smoking Status: Former smoker ROS ROS ED Constitutional Constitutional ED: Denies chills or fever(s) ENT ENT ED: Reports other Details: Tinnitus Cardiovascular Cardiovascular: Denies chest pain Respiratory/Chest Respiratory/Chest: Denies cough or dyspnea Gastrointestinal Gastrointestinal: Reports nausea and vomiting Genitourinary Genitourinary ED: Denies dysuria or hematuria Musculoskeletal Musculoskeletal: Denies back pain Integumentary Denies rash Neurologic Neurologic: Reports paresthesias, weakness and other Details: Dizziness, paresthesias and weakness are at their baseline from the patient's stroke Psychiatric Psychiatric: Denies depression Endocrine Endocrinology: Denies fatigue Allergic/Immunologic Allergic/Immunologic ED: Denies urticaria EXAM Physical Exam Const Vital Signs: 06/24/21 23:37 06/25/21 00:56 Temperature 97.8 F Temperature Source Temporal Pulse Rate 103 H 93 Respiratory Rate 22 H 16 Blood Pressure 102/47 L 108/53 L Blood Pressure Mean 65 71 Pulse Ox 92 94 Oxygen Delivery Method Room Air Room Air Positive well nourished and well developed Constitutional Narrative: Chronically ill-appearing female not acutely distressed General Appearance ED: well developed and NAD HEENT Reports TM's clear and moist mucous membranes Negative for trauma or tenderness Tympanic Membrane ED: Yes TM's clear Eyes EOMs intact bilaterally General Eye ED: Yes other Other Details: Patient has horizontal nystagmus that is leftward going Neck no lymphadenopathy, supple and no JVD Chest Wall inspection of chest normal Resp normal respiratory effort and clear to auscultation bilaterally Cardio regular rate, regular rhythm, no murmurs and peripheral pulses 2+ throughout Cardio Narrative: 2+ radial pulses bilaterally symmetric GI normal to inspection, nondistended, normoactive bowel sounds and non-tender GI Narrative: Quadrant surgical scar that is well-healed. No obvious palpable masses noted in the areas. Palpation: soft Back/Spine normal to inspection Extremity normal to inspection General Extremety ED: Negative for tenderness Neuro oriented x3 Neuro Narrative: Baseline neurologic deficits from the patient's stroke unchanged Sensorium / Orientation: alert Psych mental status grossly normal Skin no rashes or lesions noted MDM MDM MDM Narrative Medical decision making narrative: Patient presented secondary to nausea and vomiting in the setting of a new onset of vertigo with horizontal nystagmus. This seems relatively consistent with the patient having peripheral vertigo she was given meclizine and Valium. IV was established laboratory studies were obtained. CBC was unremarkable, chemistry demonstrates normal renal function normal hepatic function lipase was 112. Due to the patient being elderly, I did perform CT imaging of the brain which showed no acute process. She was also complaining of some abdominal complaints I did get a CT abdomen and pelvis which demonstrates the patient to have some constipation, bladder wall thickening that could be consistent with cystitis. I question the patient whether or not she has regular bowel movements she claims that she does, so I do not think that fecal disimpaction is indicated currently. She did reveal to me that she feels that she has been having symptoms of urinary tract infection which would be consistent with her bladder wall thickening. Patient be started on a course of Keflex. I believe the patient can be discharged with a course of Keflex and meclizine. She will be sent home with prescriptions for this. She also be discharged with referral to ENT should her vertigo not improved. Patient was discharged in improved condition. Lab Data Labs: Laboratory Results - last 24 hr 06/24/21 06/24/21 06/25/21 23:45 23:45 00:05 WBC 6.0 RBC 4.56 Hgb 14.1 Hct 43.2 MCV 94.7 MCH 30.9 MCHC 32.6 RDW Std Deviation 47.8 H RDW Coeff of Valerie 13.7 Plt Count 112 L MPV 11.6 Immature Gran % (Auto) 0.200 Neut % (Auto) 50.5 Lymph % (Auto) 41.0 Toombs % (Auto) 6.5 Eos % (Auto) 1.5 Baso % (Auto) 0.3 Absolute Neuts (auto) 3.0 Absolute Lymphs (auto) 2.47 Nucleated RBC % 0 Sodium 141 Potassium 3.8 Chloride 107 Carbon Dioxide 28.0 Anion Gap 6 BUN 18 Creatinine 0.52 L Estim Creat Clear Calc 42.70 Est GFR (MDRD) Af Amer 145 Est GFR (MDRD) Non-Af 120 BUN/Creatinine Ratio 34.4 H Glucose 117 H Lactic Acid 1.1 Calcium 9.2 Total Bilirubin 0.40 AST 17 ALT 10 L Alkaline Phosphatase 112 Total Protein 7.4 Albumin 3.1 L Globulin 4.3 H Albumin/Globulin Ratio 0.7 L Lipase 112 Radiography Diagnostic Testing: Clinical Impression(s) from Imaging Studies Abdomen/Pelvis CT 06/25/21 23:53 IMPRESSION: Severe constipation fecal impaction. Wall thickening of the bladder highly suspicious for cystitis. Sizable stone right kidney measuring 1.6 x 0.8 cm. Mild right renal pelviectasis. Cannot exclude inflammatory change. Bilateral renal cysts with benign features. Status post spinal fusion and degenerative changes of the thoracolumbar spine. Minimal hiatal hernia. Electronically Signed: Ivette Avery MD at 1:00 EDT Tel , Service support , Brain CT 06/25/21 23:53 IMPRESSION: Atrophy no evidence of acute hemorrhage infarct or edema. Electronically Signed: Ivette Avery MD at 0:56 EDT Tel , Service support , Discharge Plan Triage Chief Complaint: Nausea/Vomiting ED Provider: Se Wilson Dx/Rx/DC Orders Clinical Impression: Peripheral vertigo, Constipation, Acute UTI Instructions: ED BPV Vertigo, ED CYSTITIS Female Adult Prescriptions: New cephalexin 500 mg capsule 500 mg PO Q12 Qty: 14 RF: 0 meclizine 25 mg tablet 25 mg PO 4X/DAY PRN PRN (Reason: Dizziness) Qty: 20 RF: 0 No Action atorvastatin 10 MG tablet 10 mg PO DAILY RF: 0 ropinirole 0.25 MG tablet 0.25 mg PO QHS RF: 0 lansoprazole 30 MG capsule 15 mg PO DAILY RF: 0 gabapentin 100 MG capsule 100 mg PO BID RF: 0 raillmo-irpqqsbcqtfnr-qlniebkt 1 EACH tablet 1 ea PO [id number] RF: 0 Magnesium Hydroxide [Milk Of Magnesia] 400 MG/5 ML Oral.Susp 30 ml PO DAILY PRN (Reason: Constipation) RF: 0 Polyethylene Glycol 3350 17 GM Powd.Pack 17 g PO DAILY RF: 0 acetaminophen 325 MG tablet 650 mg PO Q6H PRN PRN (Reason: Pain Score 1-10/Temp > 100.7 F) RF: 0 aspirin 81 MG tablet,chewable 81 mg PO DAILY@0800 RF: 0 naproxen 500 MG tablet 500 mg PO DAILY PRN PRN (Reason: Headache) Qty: 1 RF: 0 cephalexin 250 MG capsule 250 mg PO Q8 Qty: 12 RF: 0 valproic acid 250 MG capsule 250 mg PO BID Qty: 60 RF: 0 Primary Care Provider: Azar Rudolph Referrals: Azar Rudolph MD [Primary Care Provider] - 3-5 Days Disposition Disposition: Home, Self Care
[2021-06-25 00:40] LABS: Lactic Acid 1.1 mmol/L (0.4-1.9)
[2021-06-25 00:56] VITALS: BP 108/53; PULSE 93; RESP 16; O2SAT 94
[2021-06-25] MEDS: Cephalexin 250 MG Capsule 500 MG PO (01:50)
[2021-06-25 01:56] VITALS: BP 109/64; PULSE 98; RESP 16; O2SAT 98
[2021-06-25 03:17] VITALS: BP 101/61; PULSE 73; RESP 16; O2SAT 97
--- NOTE | 2021-06-25 03:17 | ED.RN ---
NURSE TO NURSE REPORT CALLED TO [facility]EL[facility]
--- NOTE | 2021-06-25 23:53 | CT_ITS ---
STUDY: CT BRAIN WITHOUT CONTRAST REASON FOR EXAM: Female, 81 years old. Vertigo RADIATION DOSAGE (If Supplied By Facility): CTDIvol = ( 44.99 ) mGy, DLP = ( 829.85 ) mGycm TECHNIQUE: Transaxial CT imaging of the brain was performed without administration of intravenous contrast material. Individualized dose optimization techniques were used for this CT. COMPARISON: CT head July 25, 2020 FINDINGS: Normal soft tissue structures. Normal calvarium. There is mild cerebral atrophy with widening of the extra-axial spaces and ventricular dilatation. Normal white matter tracts of the cerebral hemispheres. Normal basal ganglia and thalami. Normal brainstem. Normal cerebellum. There is no intracranial hemorrhage. There are no findings of an acute ischemic infarction. Normal visualized paranasal sinuses. CT/Brain/Head without Contrast IMPRESSION: Atrophy no evidence of acute hemorrhage infarct or edema. Electronically Signed: Ivette Avery MD at 0:56 EDT Tel , Service support ,
--- NOTE | 2021-06-25 23:53 | CT_ITS ---
STUDY: CT ABDOMEN AND PELVIS WITHOUT CONTRAST REASON FOR EXAM: Female, 81 years old. Vomiting RADIATION DOSAGE (If Supplied By Facility): CTDIvol = ( 23.44 ) mGy, DLP = ( 1200.32 ) mGycm TECHNIQUE: Transaxial images were obtained from the dome of the diaphragm to the symphysis pubis without oral contrast, and without intravenous contrast. Sagittal and coronal images were reconstructed. Individualized dose optimization techniques were used for this CT. COMPARISON: None. FINDINGS: The visualized lung bases are unremarkable. The visualized portions of the heart are within normal limits. There is a nonspecific focus of low attenuation within the periphery of the right hepatic lobe measuring 1.3 x 1.2 cm. Normal gallbladder and extrahepatic biliary system. Normal spleen. Normal pancreas. Normal bilateral adrenal glands. There is a right renal cyst measuring 8.7 x 7.0 cm with Hounsfield units in the range of simple fluid. There is a sizable stone within the right renal pelvis measuring 1.6 x 0.8 cm. There are punctate stones in the right kidney. There is mild right pelviectasis. The left kidney is mildly atrophied measuring 8.3 x 5.8 cm. There are multiple punctate calcifications of the left kidney without hydronephrosis. There is a well-circumscribed exophytic cyst measuring 2.2 cm with Hounsfield units in the range of simple fluid. There is a minimal hiatal hernia. Normal small intestine. There is abundant stool in the colon from the cecum to the rectum especially in the rectal vault. There is non-visualization of the appendix. Aorta is minimally calcified. Normal inferior vena cava. Normal retroperitoneum. Bladder is decompressed, the wall is thickened. The uterus is atrophied. There is a lax appearance of the abdominal wall musculature with the abdominal wall laying over the pelvis and ribs. There is been a spinal fusion at the level of L4-L5. There is multilevel disc space narrowing endplate sclerosis spondylosis. There is multilevel neural foraminal narrowing. There is been a laminectomy at the level of L4. CT/Abdomen/Pelvis without Cont IMPRESSION: Severe constipation fecal impaction. Wall thickening of the bladder highly suspicious for cystitis. Sizable stone right kidney measuring 1.6 x 0.8 cm. Mild right renal pelviectasis. Cannot exclude inflammatory change. Bilateral renal cysts with benign features. Status post spinal fusion and degenerative changes of the thoracolumbar spine. Minimal hiatal hernia. Electronically Signed: Ivette Avery MD at 1:00 EDT Tel , Service support ,
== END 2021-06-25 04:22 | disposition home or self-care (01) ==
PROVIDERS: Emergency Provider Emergency Medicine; PCP Family Medicine
DX: H81.399 Other peripheral vertigo, unspecified ear (principal); K59.00 Constipation, unspecified; N39.0 Urinary tract infection, site not specified; N28.9 Disorder of kidney and ureter, unspecified; E78.5 Hyperlipidemia, unspecified; H26.9 Unspecified cataract; N31.9 Neuromuscular dysfunction of bladder, unspecified; K44.9 Diaphragmatic hernia without obstruction or gangrene; I69.353 Hemiplegia and hemiparesis following cerebral infarction affecting right non-dominant side; G25.81 Restless legs syndrome; Z87.440 Personal history of urinary (tract) infections; Z79.82 Long term (current) use of aspirin; Z79.899 Other long term (current) drug therapy; Z87.891 Personal history of nicotine dependence
CPT/HCPCS: 70450; 74176; 80053; 83605; 83690; 85025; 96360; 99285; J7040; A4216

== ENCOUNTER 2022-06-06 10:51 | Emergency (ER) | payer MEDICARE, MEDICAID, SELFPAY ==
[2022-06-06 10:52] VITALS: BP 142/66; PULSE 90; RESP 18; TEMP 36; O2SAT 95; BMI 25.7
[2022-06-06 12:42] LABS: Absolute Lymphocyte Count 2.24 X10^3/uL (0.83-4.51); Absolute Neutrophil Count 1.8 X10^3/uL (2.0-7.7); Basophil# 0.01 X10^3/uL; Basophil% 0.2 % (0-1); Eosinophil# 0.07 X10^3/uL; Eosinophils% 1.6 % (0-5); Hemoglobin 13.3 g/dL (12.0-15.0); Lymphocyte # 2.24 X10^3/ul (0.83-4.51); Lymphocyte % 49.7 % (19-41); Mean Corp Hgb Conc 31.7 g/dL (32-36); Mean Corpuscular Hgb 29.9 pg (27.0-32.0); Mean Corpuscular Volume 94.4 fL (81-99); Mean Platelet Vol. 12.3 fl (6.2-12.0); Monocyte# 0.35 X10^3/uL; Monocyte% 7.8 % (0-10); NRBC Flagged by Analyzer 0 % (0-5); Neutrophil # 1.83 X10^3/uL (2.7-7.7); Neutrophil % 40.5 % (47-70); POSITIVE COUNT YES; Platelet Count 73 K/mm3 (150-450); RBC Distribution Width CV 15.7 % (11.6-14.6); RBC Distribution Width SD 54.2 fl (35.1-43.9); Red Blood Count 4.45 M/mm3 (4.2-5.4); White Blood Count 4.5 K/mm3 (4.4-11.0)
[2022-06-06 12:43] LABS: Differential Indicated SCAN CRITERIA MET
[2022-06-06 12:58] LABS: ALB/GLOB Ratio 0.6 RATIO (0.9-2.4); AST(SGOT) 21 U/L (15-37); Alanine Aminotransfer ALT/SGPT 11 U/L (13-56); Albumin, Serum 2.6 g/dL (3.2-5.0); Alkaline Phosphatase 105 U/L (45-117); Anion Gap 5 (5-15); BUN 9 mg/dL (7-18); BUN/Creat Ratio 26.1 RATIO (10-20); Calcium,Total 8.8 mg/dL (8.5-10.1); Chloride 107 mmol/L (98-107); Creatinine, Serum 0.34 mg/dL (0.55-1.02); EST Glomerular Filtration Rate 194 mL/min (>60); Est Glom Filt Rate - Afr Amer 234 mL/min (>60); Estimated Creatinine Clearance 38.75 ml/min; Globulin 4.4 g/dL (2.2-4.2); Glucose 92 mg/dL (74-106); Potassium 3.5 mmol/L (3.5-5.1); Sodium Level 139 mmol/L (136-145)
[2022-06-06 13:16] VITALS: BP 122/60; PULSE 82; RESP 13; O2SAT 96
--- NOTE | 2022-06-06 13:17 | EX.ED.DYSGE1 ---
HPI History of Present Illness Chief Complaint: Lower Extremity Injury Informant: patient and EMS Narrative Narrative: 82-year-old female presenting to the emergency department with right leg pain. Patient states she is basically bed confined having had a stroke and unable to move due to back pain. She has developed pain in the right leg. She had a duplex ultrasound performed on this morning was reported to be positive for right common femoral vein into the distal segment of the superficial femoral vein. For unknown reasons the patient was sent to the emergency department. She is not currently anticoagulated. She denies any chest pain or shortness of breath. [facility] Medical History Cataracts, bilateral CVA (cerebral vascular accident) Hemiplegia and hemiparesis following cerebral infarction affecting right non-dominant side Hyperlipemia Neuromuscular dysfunction of bladder, unspecified Other hammer toe(s) (acquired), right foot Polyneuropathy, unspecified Restless legs syndrome Urinary tract infection, site not specified Home Medications Magnesium Hydroxide [Milk Of Magnesia] 30 ml PO DAILY PRN Constipation 07/25/20 [History Last Taken Unknown] Polyethylene Glycol 3350 17 g PO DAILY 07/25/20 [History Last Taken Unknown] gyqepnf-qjcpsjmfwfwdo-kmczhsre 250 mg-250 mg-65 mg tablet 1 ea PO [id number] HEADACHE 07/25/20 [History Last Taken Unknown] ropinirole 0.25 mg tablet 0.25 mg PO QHS 07/25/20 [History Last Taken Unknown] aspirin 81 mg chewable tablet 81 mg PO DAILY@0800 07/27/20 [Rx Last Taken Unknown] meclizine 25 mg tablet 25 mg PO 4X/DAY PRN PRN Dizziness #20 tabs 06/25/21 [Rx Last Taken Unknown] Allergy/AdvReac Type Severity Reaction Status Date / Time morphine Allergy Anaphylaxis Verified 06/06/22 10:51 Penicillins [PCN] Allergy Unknown Verified 06/06/22 10:51 Social History (Updated 06/06/22 @ 13:[address] Von Aponte DO) Smoking Status: Former smoker substance use type: does not use ROS ROS ED Constitutional Constitutional ED: Denies chills or weight loss Eyes Eyes: Denies change in vision or diplopia ENT ENT ED: Denies ear pain, rhinorrhea or sore throat Cardiovascular Cardiovascular: Denies chest pain, orthopnea, palpitations or racing heartbeat Respiratory/Chest Respiratory/Chest: Denies cough, dyspnea or orthopnea Gastrointestinal Gastrointestinal: Denies abdominal pain, diarrhea, nausea or vomiting Genitourinary Genitourinary ED: Denies dysuria, hematuria or urinary frequency Musculoskeletal Musculoskeletal: Reports back pain and other Details: Right leg pain and swelling ; Denies arthralgias or myalgias Integumentary Denies abscess or rash Neurologic Neurologic: Denies headache(s) or weakness Psychiatric Psychiatric: Denies anxiety, depression, suicidal ideation or suicidal thoughts Endocrine Endocrinology: Denies polydipsia, polyphagia or polyuria Allergic/Immunologic Allergic/Immunologic ED: Denies mouth swelling, tongue swelling or urticaria EXAM Physical Exam Const Vital Signs: 06/06/22 10:52 Temperature 96.8 F L Temperature Source Temporal Pulse Rate 90 Respiratory Rate 18 Blood Pressure 142/66 H Blood Pressure Mean 91 Pulse Ox 95 Oxygen Delivery Method Room Air MDM MDM MDM Narrative Medical decision making narrative: Basic blood work showed a hemoglobin 13.3 and platelet count 73. CMP negative. Duplex ultrasound results were obtained. I do not have access to the physical images. Patient will be started on Eliquis. Instructions to follow-up with primary care return if worsening or concerns Lab Data Attestation: I reviewed the patient's lab results. Labs: Laboratory Results - last 24 hr 06/06/22 06/06/22 12:30 12:30 WBC 4.5 RBC 4.45 Hgb 13.3 Hct 42.0 MCV 94.4 MCH 29.9 MCHC 31.7 L RDW Std Deviation 54.2 H RDW Coeff of Valerie 15.7 H Plt Count 73 L MPV 12.3 H Immature Gran % (Auto) 0.200 Neut % (Auto) 40.5 L Lymph % (Auto) 49.7 H [place] % (Auto) 7.8 Eos % (Auto) 1.6 Baso % (Auto) 0.2 Absolute Neuts (auto) 1.8 L Absolute Lymphs (auto) 2.24 Nucleated RBC % 0 Sodium 139 Potassium 3.5 Chloride 107 Carbon Dioxide 27.0 Anion Gap 5 BUN 9 Creatinine 0.34 L Estim Creat Clear Calc 38.75 Est GFR (MDRD) Af Amer 234 Est GFR (MDRD) Non-Af 194 BUN/Creatinine Ratio 26.1 H Glucose 92 Calcium 8.8 Total Bilirubin 0.40 AST 21 ALT 11 L Alkaline Phosphatase 105 Total Protein 7.0 Albumin 2.6 L Globulin 4.4 H Albumin/Globulin Ratio 0.6 L Discharge Plan Triage Chief Complaint: Lower Extremity Injury ED Provider: Von Aponte Dx/Rx/DC Orders Prescriptions: No Action ropinirole 0.25 MG tablet 0.25 mg PO QHS kmrsplw-lnjklbljkvalu-gorzgvkk 1 EACH tablet 1 ea PO [id number] Magnesium Hydroxide [Milk Of Magnesia] 400 MG/5 ML Oral.Susp 30 ml PO DAILY PRN (Reason: Constipation) Polyethylene Glycol 3350 17 GM Powd.Pack 17 g PO DAILY aspirin 81 MG tablet,chewable 81 mg PO DAILY@0800 0RF meclizine 25 mg tablet 25 mg PO 4X/DAY PRN PRN (Reason: Dizziness) Qty: 20 0RF Primary Care Provider: Azar Rudolph Referrals: Azar Rudolph MD [Primary Care Provider] -
--- NOTE | 2022-06-06 13:28 | ED.RN ---
Physicians called and ETA is 20 min.
--- NOTE | 2022-06-06 13:44 | ED.RN ---
ATTEMPTED TO CALL REPORT TO THE AV[facility]. [employer]SEM[employer] INSPECTOR HELPER STATES SHE WOULD HAVE THE NURSE CALL BACK BECAUSE THEY ARE ALL IN MEETINGS RIGHT NOW.
[2022-06-06 14:01] LABS: Platelet Estimate MOD DEC (ADEQ); Red Cell Morphology NORM C+C NORMAL (NORM C&C)
== END 2022-06-06 14:06 | disposition home or self-care (01) ==
PROVIDERS: Emergency Provider Emergency Medicine; PCP Family Medicine; Visit Provider Emergency Medicine
DX: M79.604 Pain in right leg (principal); Z79.82 Long term (current) use of aspirin; Z86.73 Personal history of transient ischemic attack (TIA), and cerebral infarction without residual deficits; Z87.891 Personal history of nicotine dependence
CPT/HCPCS: 80053; 85025; 99285

== ENCOUNTER 2022-06-13 09:04 | Inpatient (IN) | payer MEDICARE, MEDICAID, SELFPAY ==
[2022-06-13] VITALS (7 sets, daily range): BP systolic 104–113; BP diastolic 52–83; PULSE 98–106; RESP 18; TEMP 35.9–36.6; O2SAT 96–100; BMI 37.3; BMI 33.4
--- NOTE | 2022-06-13 09:18 | ED.VIS.GI ---
HPI HPI - GI History of Present Illness Chief Complaint: GI Bleed Detail of Chief Complaint: Diarrhea and rectal bleeding Informant: patient Narrative Narrative: Patient presents to the emergency department with diarrhea for about 5 days. Patient states that she has had severe diarrhea for the last 2 days where she is going about every hour. She complains of irritation to her rectum. She describes intermittent abdominal cramping. [facility] and [facility]. Patient on apixaban for history of DVT. She denies fever. She denies cough. No recent travel. She denies recent antibiotic usage. Patient also states she has had some blood in her urine. Patient sent in for evaluation. [facility] Medical History (Updated 06/13/22 @ 12:[address] 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 Hyperlipemia Neuromuscular dysfunction of bladder, unspecified Other hammer toe(s) (acquired), right foot Polyneuropathy, unspecified Restless legs syndrome Urinary tract infection, site not specified Home Medications Magnesium Hydroxide [Milk Of Magnesia] 30 ml PO DAILY PRN Constipation 07/25/20 [History Last Taken Unknown] Polyethylene Glycol 3350 17 g PO DAILY 07/25/20 [History Last Taken Unknown] cjdrwbc-jwdludyfkrpvs-fuptbgjk 250 mg-250 mg-65 mg tablet 1 ea PO [id number] HEADACHE 07/25/20 [History Last Taken Unknown] ropinirole 0.25 mg tablet 0.25 mg PO QHS 07/25/20 [History Last Taken Unknown] aspirin 81 mg chewable tablet 81 mg PO DAILY@0800 07/27/20 [Rx Last Taken Unknown] meclizine 25 mg tablet 25 mg PO 4X/DAY PRN PRN Dizziness #20 tabs 06/25/21 [Rx Last Taken Unknown] apixaban 5 mg tablet (Eliquis) 5 mg PO BID 06/13/22 [History Last Taken Unknown] phenazopyridine 200 mg tablet 200 mg PO TID 06/13/22 [History Last Taken Unknown] Allergy/AdvReac Type Severity Reaction Status Date / Time morphine Allergy Anaphylaxis Verified 06/13/22 09:09 Penicillins [PCN] Allergy Unknown Verified 06/13/22 09:09 Social History (Updated 06/06/22 @ 13:[address] Von Aponte, DO) Smoking Status: Former smoker substance use type: does not use ROS ROS ED Review of Systems ROS Unobtainable: other Constitutional Constitutional ED: Reports lethargy; Denies chills, fever(s), sweats or weight loss Eyes Eyes: Denies blurry vision, change in vision or diplopia ENT ENT ED: Denies rhinorrhea or sore throat Cardiovascular Cardiovascular: Denies chest pain, orthopnea or racing heartbeat Respiratory/Chest Respiratory/Chest: Denies cough, dyspnea, dyspnea on exertion, orthopnea or sputum Gastrointestinal Gastrointestinal: Reports abdominal pain, diarrhea and nausea; Denies vomiting Genitourinary Genitourinary ED: Reports hematuria; Denies dysuria or urinary frequency Musculoskeletal Musculoskeletal: Denies arthralgias, back pain, myalgias or neck pain Integumentary Denies abscess, Abrasions or rash Neurologic Neurologic: Denies headache(s) or weakness Psychiatric Psychiatric: Denies anxiety, depression or suicidal thoughts Endocrine Endocrinology: Denies polydipsia, polyphagia or polyuria Hematologic/Lymphatic Hematologic/Lymphatic: Denies easy bleeding, easy bruising or lymphadenopathy Allergic/Immunologic Allergic/Immunologic ED: Denies mouth swelling, tongue swelling or urticaria EXAM Physical Exam Const Vital Signs: 06/13/22 09:06 Temperature 97.9 F Temperature Source Temporal Pulse Rate 106 H Respiratory Rate 18 Blood Pressure 111/83 H Blood Pressure Mean 92 Pulse Ox 96 Oxygen Delivery Method Room Air Positive well nourished and well developed General Appearance ED: well developed and NAD HEENT Reports TM's clear and moist mucous membranes normocephalic and atraumatic; Negative for trauma or tenderness Tympanic Membrane ED: Yes TM's clear Eyes PERRL and EOMs intact bilaterally General Eye ED: Negative for pale conjunctiva or scleral icterus Neck no lymphadenopathy, supple and no JVD General: Negative for tenderness Chest Wall inspection of chest normal and palpation of chest normal Chest: Negative for tenderness Resp normal respiratory effort and clear to auscultation bilaterally Effort and Inspection: Negative for respiratory distress or pain with movement Auscultation: Negative for rhonchi, wheezes or diminished lung sounds Cardio regular rate, regular rhythm, S1 normal heart sound, S2 normal heart sound and no murmurs Peripheral Pulses: pulses 2+ throughout GI normal to inspection, nondistended, normoactive bowel sounds, soft to palpation, non-tender, non-distended and no masses Back/Spine no CVA tenderness and no thoracic nor lumbar tenderness Extremity Extremity Narrative: Patient with +3 edema both lower extremities right greater than left. General Extremety ED: Yes edema General Extremity: edema Neuro oriented x3, CN's II-XII intact bilaterally, no sensory deficits noted and gait normal Neuro Narrative: Weakness to right arm and right leg from prior stroke. Patient not ambulatory. Sensorium / Orientation: awake, alert, oriented to person, oriented to place and oriented to time Motor Exam: strength abnormal; Negative for strength 5/5 throughout Psych mental status grossly normal Skin no rashes or lesions noted and no wounds MDM MDM MDM Narrative Medical decision making narrative: IV line established on arrival. Patient was given liter normal same fluid bolus. Initially she was tachycardic and did have a blood pressure in the 90 systolic followed by 1 in the 80s systolic. Most of her pressures have been low 100s. Her lactate was normal. Hemoglobin was 13.7. Chemistries otherwise unremarkable. Stool was sent for enteric pathogens and C. difficile and those are pending. I did start her on Rocephin as her urine appears infected. She does have gross hematuria as well. Case will be discussed with hospitalist evaluate patient for admission for diagnosis of diarrhea, UTI, hematuria, generalized weakness. Lab Data Attestation: I reviewed the patient's lab results. Labs: Laboratory Results - last 24 hr 06/13/22 06/13/22 06/13/22 09:24 09:30 09:30 WBC 6.5 RBC 4.37 Hgb 13.7 Hct 41.7 MCV 95.4 MCH 31.4 MCHC 32.9 RDW Std Deviation 55.1 H RDW Coeff of Valerie 15.5 H Plt Count 115 L MPV 12.3 H Immature Gran % (Auto) 0.300 Neut % (Auto) 69.6 Lymph % (Auto) 22.7 [place] % (Auto) 6.5 Eos % (Auto) 0.6 Baso % (Auto) 0.3 Absolute Neuts (auto) 4.5 Absolute Lymphs (auto) 1.48 Nucleated RBC % 0 PT 22.1 H INR 2.0 Sodium 141 Potassium 4.1 Chloride 109 H Carbon Dioxide 27.0 Anion Gap 5 BUN 19 H Creatinine 0.39 L Estim Creat Clear Calc 32.23 Est GFR (MDRD) Af Amer 202 Est GFR (MDRD) Non-Af 167 BUN/Creatinine Ratio 48.5 H Glucose 113 H Lactic Acid Calcium 8.5 Urine Color Urine Clarity Urine pH Ur Specific [place] Urine Protein Urine Glucose (UA) Urine Ketones Urine Occult Blood Urine Nitrite Urine Bilirubin Urine Urobilinogen Ur Leukocyte Esterase Urine RBC Urine WBC Ur Squamous Epith Cells Urine Bacteria Urine Mucus 06/13/22 06/13/22 09:30 10:10 WBC RBC Hgb Hct MCV MCH MCHC RDW Std Deviation RDW Coeff of Valerie Plt Count MPV Immature Gran % (Auto) Neut % (Auto) Lymph % (Auto) [place] % (Auto) Eos % (Auto) Baso % (Auto) Absolute Neuts (auto) Absolute Lymphs (auto) Nucleated RBC % PT INR Sodium Potassium Chloride Carbon Dioxide Anion Gap BUN Creatinine Estim Creat Clear Calc Est GFR (MDRD) Af Amer Est GFR (MDRD) Non-Af BUN/Creatinine Ratio Glucose Lactic Acid 1.3 Calcium Urine Color Brown Urine Clarity Cloudy Urine pH 6.0 Ur Specific [place] 1.020 Urine Protein 500 H Urine Glucose (UA) Normal Urine Ketones 15 H Urine Occult Blood 250 H Urine Nitrite Negative Urine Bilirubin Negative Urine Urobilinogen 1 H Ur Leukocyte Esterase 500 H Urine RBC 50-100 SEEN Urine WBC 50-100 SEEN Ur Squamous Epith Cells 0 SEEN Urine Bacteria 4+ Urine Mucus 0 SEEN Discharge Plan Triage Chief Complaint: GI Bleed ED Provider: Soila Nelson Dx/Rx/DC Orders Clinical Impression: Diarrhea, Acute UTI, Hematuria, Weakness Prescriptions: No Action ropinirole 0.25 MG tablet 0.25 mg PO QHS [id number]-sbpdqjtggnayh-mryadeks 1 EACH tablet 1 ea PO [id number] Magnesium Hydroxide [Milk Of Magnesia] 400 MG/5 ML Oral.Susp 30 ml PO DAILY PRN (Reason: Constipation) Polyethylene Glycol 3350 17 GM Powd.Pack 17 g PO DAILY aspirin 81 MG tablet,chewable 81 mg PO DAILY@0800 0RF meclizine 25 mg tablet 25 mg PO 4X/DAY PRN PRN (Reason: Dizziness) Qty: 20 0RF phenazopyridine 200 mg Tablet 200 mg PO TID Eliquis 5 mg tablet 5 mg PO BID Rx Instructions: 10 mg twice a day for the first week. Then 5 mg twice a day. Primary Care Provider: Azar Rudolph Referrals: Azar Rudolph MD [Primary Care Provider] - Disposition Disposition: Acute Care Hospital [facility]
[2022-06-13 09:48] LABS: Absolute Lymphocyte Count 1.48 X10^3/uL (0.83-4.51); Absolute Neutrophil Count 4.5 X10^3/uL (2.0-7.7); Basophil# 0.02 X10^3/uL; Basophil% 0.3 % (0-1); Eosinophil# 0.04 X10^3/uL; Eosinophils% 0.6 % (0-5); Hematocrit 41.7 % (37-47); Hemoglobin 13.7 g/dL (12.0-15.0); Lymphocyte # 1.48 X10^3/ul (0.83-4.51); Lymphocyte % 22.7 % (19-41); Mean Corp Hgb Conc 32.9 g/dL (32-36); Mean Corpuscular Hgb 31.4 pg (27.0-32.0); Mean Corpuscular Volume 95.4 fL (81-99); Mean Platelet Vol. 12.3 fl (6.2-12.0); Monocyte# 0.42 X10^3/uL; Monocyte% 6.5 % (0-10); NRBC Flagged by Analyzer 0 % (0-5); Neutrophil # 4.53 X10^3/uL (2.7-7.7); Neutrophil % 69.6 % (47-70); Platelet Count 115 K/mm3 (150-450); RBC Distribution Width CV 15.5 % (11.6-14.6); RBC Distribution Width SD 55.1 fl (35.1-43.9); Red Blood Count 4.37 M/mm3 (4.2-5.4); White Blood Count 6.5 K/mm3 (4.4-11.0)
[2022-06-13 10:01] LABS: Anion Gap 5 (5-15); BUN 19 mg/dL (7-18); BUN/Creat Ratio 48.5 RATIO (10-20); Calcium,Total 8.5 mg/dL (8.5-10.1); Chloride 109 mmol/L (98-107); Creatinine, Serum 0.39 mg/dL (0.55-1.02); EST Glomerular Filtration Rate 167 mL/min (>60); Est Glom Filt Rate - Afr Amer 202 mL/min (>60); Estimated Creatinine Clearance 32.23 ml/min; Glucose 113 mg/dL (74-106); Potassium 4.1 mmol/L (3.5-5.1); Sodium Level 141 mmol/L (136-145)
[2022-06-13 10:17] LABS: Lactic Acid 1.3 mmol/L (0.4-1.9)
[2022-06-13] MEDS: 0.9% Normal Saline 1,000 ML 1000 ML IV (10:20)
[2022-06-13 10:26] LABS: Mucous, Urine 0 SEEN /hpf (<or=2+); Squamous Epithelial Cells - UA 0 SEEN /hpf (5-10)
[2022-06-13 10:31] LABS: Color, Urine Brown (Yellow); Glucose, Dipstick Normal (Normal); Ketone-Dipstick 15 mg/dl (Negative); Leukocyte Esterase-Dipstick 500 /ul (Negative); Nitrite-Dipstick Negative (Negative); Occult Blood-Urine 250 /ul (Negative); Protein-Dipstick 500 mg/dl (Negative); Urine Bilirubin Dipstick Negative (Negative); Urine Clarity Cloudy (Clear); Urine Urobilinogen 1 mg/dl (Normal)
[2022-06-13 10:34] LABS: Bacteria 4+ /hpf (None Seen); Red Blood Cells-Urine 50-100 SEEN /hpf (0-5); White Blood Cells 50-100 SEEN /hpf (0-5)
[2022-06-13 10:35] LABS: Prothrombin Time (Protime)PT. 22.1 SECONDS (11.7-14.9)
[2022-06-13] MEDS: Ceftriaxone 1 GM/50 ML BAG IV (12:08)
--- NOTE | 2022-06-13 12:53 | HP.PCM.HOS_ITS ---
HPI - General General Date of Admission: 06/13/22 Date of Service: 06/13/22 Chief Complaint: Diarrhea, hematochezia -1 week HPI Narrative DEMI MORTON, is a 82 F who presents with the above. Patient is resident in the [facility], she has history of CVA with right hemiplegia. She was recently diagnosed with acute right common femoral vein as well as superficial vein DVT on 06/06/2022. She was started on Eliquis. Patient presents back with frequent stools as well as hematochezia. She denied any abdominal pain with bowel movement or nausea or vomiting. Patient denies any dizziness or chest pain or palpitations. In the ED, her blood pressure 111/83, heart rate 106, respiratory 18, temp 97.9F, oxygen sat was 96% on room air. WBC is 6.5, hemoglobin 13.7, platelet count 115, INR is 2.0, sodium 141, potassium 4.1, chloride 109, bicarbonate 27, BUN 19, creatinine 0.39, creatinine is 1.3. UA was brown, cloudy, protein 500, ketones 15, occult blood 250, leukocyte esterase 500, WBC 50-100. [facility] Medical History Cataracts, bilateral Chronic kidney disease CVA (cerebral vascular accident) GERD (gastroesophageal reflux disease) Hemiplegia and hemiparesis following cerebral infarction affecting right non- dominant side Hyperlipemia Neuromuscular dysfunction of bladder, unspecified Other hammer toe(s) (acquired), right foot Polyneuropathy, unspecified Restless legs syndrome Urinary tract infection, site not specified Home Medications ropinirole 0.25 mg tablet 0.25 mg PO QHS RLS 07/25/20 [History Last Taken 06/12/22] acetaminophen 650 mg tablet,extended release 650 mg PO Q6H PRN Pain 06/13/22 [History Last Taken 06/09/22] apixaban 5 mg tablet (Eliquis) 5 mg PO BID BLOOD THINNER 06/13/22 [History Last Taken 06/13/22] apixaban 5 mg tablet (Eliquis) 10 mg PO BID BLOOD THINNER 06/13/22 [History Last Taken 06/12/22] aspirin 81 mg chewable tablet 81 mg PO DAILY HEART 06/13/22 [History Last Taken 06/13/22] metronidazole 0.75 % topical cream 1 applic topical BID FACE 06/13/22 [History Last Taken 06/13/22] ondansetron HCl 4 mg tablet 4 mg PO Q6H PRN Nausea 06/13/22 [History Last Taken 06/13/22] Allergy/AdvReac Type Severity Reaction Status Date / Time morphine Allergy Anaphylaxis Verified 06/13/22 09:09 Penicillins [PCN] Allergy Unknown Verified 06/13/22 09:09 Family History unable to obtain unable to obtain Social History (Updated 06/06/22 @ 13:[address] Von Aponte, DO) Smoking Status: Former smoker substance use type: does not use ROS ROS Narrative Constitutional: Reports: Malaise, Weakness, Fatigue. Denies: Anorexia, Chills, Fever, Night Sweats, Weight Change Eyes: Denies: Blurred vision, Cataracts, Conjunctivae Inflammation, Pain, Redness, Vision Change HEENT: Denies: Difficulty Hearing, Difficulty Swallowing, Head Aches, Hearing Changes, Sinus Congestion, Sinus Drainage Cardiovascular: Denies: Chest Pain, Orthopnea, Palpitations Respiratory: Denies: Cough, Shortness of breath at rest, Sputum production Gastrointestinal: See HPI Genitourinary: Denies: Dysuria Musculoskeletal: Denies: Joint Pain, Joint stiffness, Joint swelling, Joint Tenderness Skin: Denies: Rash, Wounds Neurological: Denies: Numbness, Tingling, Focal weakness Vital Signs Vital Signs Vital Signs: 06/13/22 09:06 Temperature 97.9 F Temperature Source Temporal Pulse Rate 106 H Respiratory Rate 18 Blood Pressure 111/83 H Blood Pressure Mean 92 Pulse Ox 96 Oxygen Delivery Method Room Air Weight Weight: 86.7 kg Body Mass Index (BMI) 37.3 Physical Exam Narrative Physical exam: General: Alert, Oriented x3, Cooperative, obese HEENT: Atraumatic Oral: Moist Mucosa Neck: Supple Lungs: Diminished to auscultation Cardiovascular: HS I+II, regular, no murmurs Abdomen: Bowel Sounds Present, Soft, Non Tender Extremities: Bilateral pedal edema, trace Skin: No rashes, No breakdown Neurological: Grossly intact Psych/Mental Status: Appropriate Results Lab / Micro Data Result Diagrams: 06/13/22 09:30 06/13/22 09:30 Labs: Laboratory Results - last 24 hr 06/13/22 09:24: PT 22.1 H, INR 2.0 06/13/22 09:30: WBC 6.5, RBC 4.37, Hgb 13.7, Hct 41.7, MCV 95.4, MCH 31.4, MCHC 32.9, RDW Std Deviation 55.1 H, RDW Coeff of Valerie 15.5 H, Plt Count 115 L, MPV 12.3 H, Immature Gran % (Auto) 0.300, Neut % (Auto) 69.6, Lymph % (Auto) 22.7, [place] % (Auto) 6.5, Eos % (Auto) 0.6, Baso % (Auto) 0.3, Absolute Neuts (auto) 4.5, Absolute Lymphs (auto) 1.48, Nucleated RBC % 0 06/13/22 09:30: Sodium 141, Potassium 4.1, Chloride 109 H, Carbon Dioxide 27.0, Anion Gap 5, BUN 19 H, Creatinine 0.39 L, Estim Creat Clear Calc 32.23, Est GFR (MDRD) Af Amer 202, Est GFR (MDRD) Non-Af 167, BUN/Creatinine Ratio 48.5 H, Glucose 113 H, Calcium 8.5 06/13/22 09:30: Lactic Acid 1.3 06/13/22 10:10: Urine Color Brown, Urine Clarity Cloudy, Urine pH 6.0, Ur Specific [place] 1.020, Urine Protein 500 H, Urine Glucose (UA) Normal, Urine Ketones 15 H, Urine Occult Blood 250 H, Urine Nitrite Negative, Urine Bilirubin Negative, Urine Urobilinogen 1 H, Ur Leukocyte Esterase 500 H, Urine RBC 50-100 SEEN, Urine WBC 50-100 SEEN, Ur Squamous Epith Cells 0 SEEN, Urine Bacteria 4+, Urine Mucus 0 SEEN Micro: Microbiology 06/13/22 09:50 Stool Stool Occult Blood (KODY) - Final Occult Blood Positive 06/13/22 09:57 Nasal Secretion SARS-CoV-2 Antigen (Rapid) - Final Assessment & Plan Assessment/Plan (1) Diarrhea: (2) Acute GI bleeding: PLAN: Plan 1. Acute diarrhea, acute C. difficile negative, enteric panel negative Admit to PCU, gentle IV fluids, Imodium as needed 2. Acute intermittent episode of hematochezia, stool for occult blood is positive in the ED Admitting hemoglobin is 13.7, Will treat as acute GI bleed, hold Eliquis, transition to heparin drip IV PPI, H&H every 6h 3. Acute UTI, with hematochezia Started on IV ceftriaxone, will continue same Follow-up on urine culture 4. Acute DVT, recently diagnosed on 06/06/2022, on Eliquis Will transition to heparin drip 5. History of CVA with right hemiplegia, complicates care and prognosis 6.Obesity, BMI 33.5, complicates care and prognosis 7. DVT prophylaxis?Heparin drip I discussed and explained in details the various types of CODE STATUS-full code, DNR CCA, DNR CC. Patient chose to be full code and want all aggressive care including cardiopulmonary resuscitation and mechanical ventilator. She stated that her healthcare power of mergers and acquisitions attorney was her daughter. Time spent discussing CODE STATUS 16 minutes Charges/Coding Visit Charges Inpatient E&M: 62412 Subs Hosp L3
--- NOTE | 2022-06-13 13:24 | NURSING ---
112 NUAMAH DIARRHEA, UTI, WEAKNESS
[2022-06-13] MEDS: 0.9% Normal Saline 1,000 ML 75 ML IV (15:27)
[2022-06-13] MEDS: HEPARIN/D5w 25,000 UNITS 25,000 UNITS/250 ML IV.SOLN. 11 UNITS CONT INF (15:28)
[2022-06-13 15:49] LABS: Hematocrit 40.8 % (37-47); Hemoglobin 12.8 g/dL (12.0-15.0)
--- NOTE | 2022-06-13 17:20 | EX.PCM.CON.S ---
Assessment & Plan Assessment/Plan (1) Acute deep vein thrombosis (DVT) of right lower extremity: PLAN: -will obtain duplex here to confirm presence/extent -if acute on imaging, and was developed within past few weeks, would be reasonable to place filter -will trend hgb; currently over 12 and with loose stools for weeks -await GI input -pending identification of source of bleeding and hgb trend will decide if we will proceed with filter -npo at midnight in case need for procedure HPI Consult Data Date of Consult: 06/13/22 HPI Narrative HPI Narrative: DEMI MORTON, is a 82 F who presents with increasing frequency of loose stool that has become more dark in nature. Began she thinks a few weeks ago with a mucous filled BM, now has become more dark. She was recently diagnosed with a RLE DVT, imaging done at care facility, and placed on Eliquis. She thinks DVT pre-dated the diarrhea, though that was found Jun 06. She also thinks the initial thrombus was less extensive several weeks ago then propagated prompting Eliquis. No prior DVT, no prior similar GI symptoms. She does have right hemiparesis from CVA over 2 years ago. 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 Hyperlipemia Neuromuscular dysfunction of bladder, unspecified Other hammer toe(s) (acquired), right foot Polyneuropathy, unspecified Restless legs syndrome Urinary tract infection, site not specified Home Medications ropinirole 0.25 mg tablet 0.25 mg PO QHS RLS 07/25/20 [History Last Taken 06/12/22] acetaminophen 650 mg tablet,extended release 650 mg PO Q6H PRN Pain 06/13/22 [History Last Taken 06/09/22] apixaban 5 mg tablet (Eliquis) 5 mg PO BID BLOOD THINNER 06/13/22 [History Last Taken 06/13/22] apixaban 5 mg tablet (Eliquis) 10 mg PO BID BLOOD THINNER 06/13/22 [History Last Taken 06/12/22] aspirin 81 mg chewable tablet 81 mg PO DAILY HEART 06/13/22 [History Last Taken 06/13/22] metronidazole 0.75 % topical cream 1 applic topical BID FACE 06/13/22 [History Last Taken 06/13/22] ondansetron HCl 4 mg tablet 4 mg PO Q6H PRN Nausea 06/13/22 [History Last Taken 06/13/22] Allergy/AdvReac Type Severity Reaction Status Date / Time morphine Allergy Anaphylaxis Verified 06/13/22 09:09 Penicillins [PCN] Allergy Unknown Verified 06/13/22 09:09 Family History unable to obtain Social History Smoking Status: Former smoker substance use type: does not use ROS Constitutional Constitutional: Denies chills, fever(s), frequent falls, lethargy or weakness Eyes Eyes: Denies blind spots, change in vision or loss of vision Cardiovascular Cardiovascular: Reports numbness in extremities and weakness in extremities; Denies abdominal pain, irregular heart rhythm, leg edema or leg ulcers Respiratory/Chest Respiratory/Chest: Denies cough, excessive phlegm production, shortness of breath at rest, shortness of breath with exertion or wheezing Gastrointestinal Gastrointestinal: Reports change in stool character, diarrhea and melena; Denies anorexia, constipation or rectal bleeding Genitourinary Genitourinary: Denies dysuria or hematuria Musculoskeletal Musculoskeletal: Denies abnormal gait Integumentary Integumentary: Reports other Details: ; Denies non-healing lesions or wounds Neurologic Neurologic: Reports focal weakness and sensory deficit; Denies abnormal speech, headache(s), loss of vision or paresthesias Hematologic/Lymphatic Hematologic/Lymphatic: Denies easy bleeding, easy bruising or lymphadenopathy Physical Exam Const alert, oriented x3, no apparent distress and healthy appearing General Appearance: cooperative; Negative for combative or lethargic Orientation / Consciousness: awake Exam Limitations: no limitations HEENT Head and Scalp: normocephalic and atraumatic Eyes EOMs intact bilaterally General Eye: normal appearance of both eyes Neck full ROM General: trachea midline Resp normal respiratory effort and no use of accessory muscles Effort and Inspection: Negative for labored, stridor or audible wheezes Cardio regular rate and regular rhythm Peripheral Pulses: brachial pulses present and radial pulses present GI non-distended Palpation: tender Back/Spine Cervical Spine: cervical ROM normal Neuro oriented x3 and CN's II-XII intact bilaterally Neuro Narrative: right hemiparesis Psych thought process normal, cooperative, affect normal, speech normal and activity/motor behavior normal Lab / Micro Data Result Diagrams: 06/13/22 15:40 06/13/22 09:30 Labs: Laboratory Results - last 24 hr 06/13/22 09:24: PT 22.1 H, INR 2.0 06/13/22 09:30: WBC 6.5, RBC 4.37, Hgb 13.7, Hct 41.7, MCV 95.4, MCH 31.4, MCHC 32.9, RDW Std Deviation 55.1 H, RDW Coeff of Valerie 15.5 H, Plt Count 115 L, MPV 12.3 H, Immature Gran % (Auto) 0.300, Neut % (Auto) 69.6, Lymph % (Auto) 22.7, [place] % (Auto) 6.5, Eos % (Auto) 0.6, Baso % (Auto) 0.3, Absolute Neuts (auto) 4.5, Absolute Lymphs (auto) 1.48, Nucleated RBC % 0 06/13/22 09:30: Sodium 141, Potassium 4.1, Chloride 109 H, Carbon Dioxide 27.0, Anion Gap 5, BUN 19 H, Creatinine 0.39 L, Estim Creat Clear Calc 32.23, Est GFR (MDRD) Af Amer 202, Est GFR (MDRD) Non-Af 167, BUN/Creatinine Ratio 48.5 H, Glucose 113 H, Calcium 8.5 06/13/22 09:30: Lactic Acid 1.3 06/13/22 10:10: Urine Color Brown, Urine Clarity Cloudy, Urine pH 6.0, Ur Specific [place] 1.020, Urine Protein 500 H, Urine Glucose (UA) Normal, Urine Ketones 15 H, Urine Occult Blood 250 H, Urine Nitrite Negative, Urine Bilirubin Negative, Urine Urobilinogen 1 H, Ur Leukocyte Esterase 500 H, Urine RBC 50-100 SEEN, Urine WBC 50-100 SEEN, Ur Squamous Epith Cells 0 SEEN, Urine Bacteria 4+, Urine Mucus 0 SEEN 06/13/22 15:40: Hgb 12.8, Hct 40.8 Micro: Microbiology 06/13/22 09:50 Stool Enteric Bacteriology - Final 06/13/22 09:50 Stool C. difficile DNA Amplification - Final 06/13/22 09:50 Stool Stool Occult Blood (KODY) - Final Occult Blood Positive 06/13/22 09:57 Nasal Secretion SARS-CoV-2 Antigen (Rapid) - Final Charges/Coding Visit Charges Inpatient E&M: 59403 Init Hosp L2
--- NOTE | 2022-06-13 17:26 | PCM.CONS.GEN ---
Assessment & Plan Assessment/Plan (1) Diarrhea: PLAN: She does not have a nongap metabolic acidosis as her serum bicarbonate is 27. She says she is having a lot of diarrhea over 2 weeks and likely it is a viral induced gastroenteritis that is causing her diarrhea. Higher to differential diagnosis would be norovirus. I would like to get a CT scan abdomen pelvis as she has never had a colonoscopy and this could be secondary to overflow from a colon cancer causing a stricture. Her last CT scan abdomen pelvis is back on 06/23/2022 and it did not show any specific lesions in the colon. I will also check an ESR and CRP to see if there is any inflammation associated with her diarrhea. At this point I would think it is a secretory diarrhea more than osmotic and she is having it despite eating and top an additional diagnosis would be infectious colitis, inflammatory bowel disease or GI bleed causing diarrhea. I will start her on colestipol and pancreatic enzymes as they are safe in viral gastroenteritis and inflammatory bowel disease. (2) Acute GI bleeding: PLAN: I am not quite sure where she is having lower GI bleeding from at this time as she will not let me do a real thorough physical examination and she does not want to have any procedures done at this time. Hopefully a CT scan of the pelvis will show us pathology that will help us further treat her. HPI Consult Data Date of Consult: 06/13/22 HPI Narrative Reason for Consultation: GI bleed and diarrhea HPI Narrative: DEMI MORTON, is a 82 F who presents to the emergency department with diarrhea for about 5 days.? Patient states that she has had severe diarrhea for the last 2 days where she is going about every hour.? She complains of irritation to her rectum.? She describes intermittent abdominal cramping.? Patient [facility] and was [facility].? Patient on apixaban for history of DVT.? She denies fever.? She denies cough.? No recent travel.? She denies recent antibiotic usage.? Patient also states she has had some blood in her urine.? In the ED, her blood pressure 111/83, heart rate 106, respiratory 18, temp 97.9F, oxygen sat was 96% on room air.? WBC is 6.5, hemoglobin 13.7, platelet count 115, INR is 2.0, sodium 141, potassium 4.1, chloride 109, bicarbonate 27, BUN 19, creatinine 0.39, creatinine is 1.3. She had a CT scan of the abdomen pelvis back in June 2021. It showed a lot of constipation but did not mention any signs of diverticular disease. It did mention a hiatal hernia. 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 Hyperlipemia Neuromuscular dysfunction of bladder, unspecified Other hammer toe(s) (acquired), right foot Polyneuropathy, unspecified Restless legs syndrome Urinary tract infection, site not specified Home Medications ropinirole 0.25 mg tablet 0.25 mg PO QHS RLS 07/25/20 [History Last Taken 06/12/22] acetaminophen 650 mg tablet,extended release 650 mg PO Q6H PRN Pain 06/13/22 [History Last Taken 06/09/22] apixaban 5 mg tablet (Eliquis) 5 mg PO BID BLOOD THINNER 06/13/22 [History Last Taken 06/13/22] apixaban 5 mg tablet (Eliquis) 10 mg PO BID BLOOD THINNER 06/13/22 [History Last Taken 06/12/22] aspirin 81 mg chewable tablet 81 mg PO DAILY HEART 06/13/22 [History Last Taken 06/13/22] metronidazole 0.75 % topical cream 1 applic topical BID FACE 06/13/22 [History Last Taken 06/13/22] ondansetron HCl 4 mg tablet 4 mg PO Q6H PRN Nausea 06/13/22 [History Last Taken 06/13/22] Allergy/AdvReac Type Severity Reaction Status Date / Time morphine Allergy Anaphylaxis Verified 06/13/22 09:09 Penicillins [PCN] Allergy Unknown Verified 06/13/22 09:09 Family History unable to obtain Social History Smoking Status: Former smoker substance use type: does not use ROS ROS Narrative Constitutional: Reports: Malaise, Weakness, Fatigue. Denies: Anorexia, Chills, Fever, Night Sweats, Weight Change Eyes: Denies: Blurred vision, Cataracts, Conjunctivae Inflammation, Pain, Redness, Vision Change HEENT: Denies: Difficulty Hearing, Difficulty Swallowing, Head Aches, Hearing Changes, Sinus Congestion, Sinus Drainage Cardiovascular: Denies: Chest Pain, Orthopnea, Palpitations Respiratory: Denies: Cough, Shortness of breath at rest, Sputum production Gastrointestinal: See HPI Genitourinary: Denies: Dysuria Musculoskeletal: Denies: Joint Pain, Joint stiffness, Joint swelling, Joint Tenderness Skin: Denies: Rash, Wounds Neurological: Denies: Numbness, Tingling, Focal weakness Physical Exam Narrative Physical exam: General: Alert, Oriented x3, Cooperative, obese HEENT: Atraumatic Oral: Moist Mucosa Neck: Supple Lungs: Diminished to auscultation Cardiovascular: HS I+II, regular, no murmurs Abdomen: Bowel Sounds Present, Soft, Non Tender Extremities: Bilateral pedal edema, trace Skin: No rashes, No breakdown Rectal examination: Mild excoriation with a grade 1 rectal prolapse. No appreciable anal fissure or significant hemorrhoidal disease with any bleeding stigmata. Neurological: Grossly intact Psych/Mental Status: Appropriate Lab / Micro Data Result Diagrams: 06/13/22 15:40 06/13/22 09:30 Labs: Laboratory Results - last 24 hr 06/13/22 09:24: PT 22.1 H, INR 2.0 06/13/22 09:30: WBC 6.5, RBC 4.37, Hgb 13.7, Hct 41.7, MCV 95.4, MCH 31.4, MCHC 32.9, RDW Std Deviation 55.1 H, RDW Coeff of Valerie 15.5 H, Plt Count 115 L, MPV 12.3 H, Immature Gran % (Auto) 0.300, Neut % (Auto) 69.6, Lymph % (Auto) 22.7, [place] % (Auto) 6.5, Eos % (Auto) 0.6, Baso % (Auto) 0.3, Absolute Neuts (auto) 4.5, Absolute Lymphs (auto) 1.48, Nucleated RBC % 0 06/13/22 09:30: Sodium 141, Potassium 4.1, Chloride 109 H, Carbon Dioxide 27.0, Anion Gap 5, BUN 19 H, Creatinine 0.39 L, Estim Creat Clear Calc 32.23, Est GFR (MDRD) Af Amer 202, Est GFR (MDRD) Non-Af 167, BUN/Creatinine Ratio 48.5 H, Glucose 113 H, Calcium 8.5 06/13/22 09:30: Lactic Acid 1.3 06/13/22 10:10: Urine Color Brown, Urine Clarity Cloudy, Urine pH 6.0, Ur Specific [place] 1.020, Urine Protein 500 H, Urine Glucose (UA) Normal, Urine Ketones 15 H, Urine Occult Blood 250 H, Urine Nitrite Negative, Urine Bilirubin Negative, Urine Urobilinogen 1 H, Ur Leukocyte Esterase 500 H, Urine RBC 50-100 SEEN, Urine WBC 50-100 SEEN, Ur Squamous Epith Cells 0 SEEN, Urine Bacteria 4+, Urine Mucus 0 SEEN 06/13/22 15:40: Hgb 12.8, Hct 40.8 Micro: Microbiology 06/13/22 09:50 Stool Enteric Bacteriology - Final 06/13/22 09:50 Stool C. difficile DNA Amplification - Final 06/13/22 09:50 Stool Stool Occult Blood (KODY) - Final Occult Blood Positive 06/13/22 09:57 Nasal Secretion SARS-CoV-2 Antigen (Rapid) - Final Charges/Coding Visit Charges Inpatient E&M: 95536 Init Hosp L3
[2022-06-13 18:24] LABS: Partial Thromboplast Time 36.9 Seconds (24.1-36.2)
[2022-06-13 19:33] LABS: Erythrocyte Sedimentation Rate 47 mm/hr (0-30)
[2022-06-13 21:14] LABS: Hematocrit 36.4 % (37-47); Hemoglobin 11.8 g/dL (12.0-15.0)
[2022-06-13] MEDS: Pramipexole Di-HCl 0.125 MG Tablet PO (22:03)
--- NOTE | 2022-06-13 22:51 | PCA ---
Pt called to be changed, went in with Nely SEE WHEELER, pt wanted to be changed at a 45 degree angle explained to pt that she needed to be laid flat so we could roll her easier with cleaning the stool that was up to her shoulder blades. Pt screaming at staff saying you must do it my way. Staff again explains why we need her flat. As pt was on her side pt mentioned a chip in her back so staff then said we will be careful with moving her in the bed. Pt hitting at staff and yelling at staff saying you're not doing it like the other girls, they know what they are doing. Staff then continues to clean patient and lets pt know we are going to roll her back to the other side. Staff asks pt to help us roll her to the other side so we don't hurt her pt then yells at staff I can't roll myself. Staff then rolls pt as gently as possible onto other side. Pt yells at this staff member for speaking too loudly, this staff member informs pt she is hard of hearing and talks loud on a normal basis and apologizes for it. Pt states I don't care I'm not deaf. Other SEE WHEELER Nely cleaning pt folds and pt starts screaming and clawing at this staff member. Explained to pt we are cleaning her up as gently as we can but she is extremely raw and exfoliated in the area and we can't leave any stool on the sore area. Pt continues to yell and be rude to staff while staff tries to make pt clean and as comfortable as possible. Pt continues to state if you would just do it my way we wouldn't be having this conversation. Staff again tells pt it would be hard/impossible to clean her up at an angle with how much stool was all over her. Pt complains to staff that we aren't like the other girls and we need to be more like them and just do it exactly as she says. RN and legal recruiter aware of patient complaints. Pt is now clean completely and repositioned for comfort.
--- NOTE | 2022-06-13 22:51 | PCA ---
Patient requested to be changed, as Luli ENTEROSTOMAL THERAPY NURSE and I went to change her we had put the patient on her back and lowered her head to do a proper cleaning, Patient then started hitting Luli and screaming, pt told us during changing and rolling her about the chip she had in her back and that she is not supposed to lay all the way flat due to it.Moved patient as gently as possible due to new knowledge of chip in back. Patient also became very disrespectful due to Luli's hearing impairment. Throughout entire cleaning patient was hitting clawing and screaming at staff. Staff moving patient and cleaning patient as gently as possible, pt repositioned for comfort.
--- NOTE | 2022-06-13 22:52 | NURSING ---
Pt refused colestipol. at 1999. This nurse called tyrel verified why this pt may need it. i was informed pt may be taking to bulk up stool. After a long conversation w pt she is now willing to take it at 2300 Pt was screaming and yelling while aides was turning pt. Pt complained that she can not be layed flat. Informed pt i would talk w aides and that we have to put bed down some because we dont want to hurt our backs and we wont be able to get her over enough to keep her clean if she is sitting in a chair mode
[2022-06-13] MEDS: Colestipol 1 GM TABLET PO (22:59)
[2022-06-14] VITALS (9 sets, daily range): BP systolic 98–120; BP diastolic 52–65; PULSE 91–96; RESP 16–18; TEMP 36.3–36.9; O2SAT 97–98
--- NOTE | 2022-06-14 00:12 | PCA ---
Pt called out to be changed again, went in with Nely WEBER. Changed pt following her exact instructions to try and keep patient comfortable. Pt still yelling and screaming at staff stating we aren't doing it right and we have no idea how much pain she is in. Pt cleaned up properly and repositioned for comfort no other needs. RN aware
--- NOTE | 2022-06-14 00:13 | PCA ---
Patient changed as requested, upon changing patient with Luli WEBER and following her instructions on how she would like to be changed patient still continued to scream at and disrespect staff.
[2022-06-14 01:15] LABS: Partial Thromboplast Time > 200.0 Seconds (24.1-36.2)
[2022-06-14] MEDS: Nystatin Powder 15gm Bottle 1 APPLIC TOPICAL ×3 (05:12→23:12)
[2022-06-14 06:58] LABS: Absolute Lymphocyte Count 2.15 X10^3/uL (0.83-4.51); Absolute Neutrophil Count 2.8 X10^3/uL (2.0-7.7); Basophil# 0.02 X10^3/uL; Basophil% 0.4 % (0-1); Eosinophil# 0.07 X10^3/uL; Eosinophils% 1.3 % (0-5); Hematocrit 36.5 % (37-47); Hemoglobin 11.7 g/dL (12.0-15.0); Lymphocyte # 2.15 X10^3/ul (0.83-4.51); Lymphocyte % 39.5 % (19-41); Mean Corp Hgb Conc 32.1 g/dL (32-36); Mean Corpuscular Hgb 30.5 pg (27.0-32.0); Mean Corpuscular Volume 95.3 fL (81-99); Mean Platelet Vol. 12.4 fl (6.2-12.0); Monocyte# 0.42 X10^3/uL; Monocyte% 7.7 % (0-10); NRBC Flagged by Analyzer 0 % (0-5); Neutrophil # 2.77 X10^3/uL (2.7-7.7); Neutrophil % 50.9 % (47-70); Platelet Count 120 K/mm3 (150-450); RBC Distribution Width CV 15.6 % (11.6-14.6); Red Blood Count 3.83 M/mm3 (4.2-5.4); White Blood Count 5.4 K/mm3 (4.4-11.0)
--- NOTE | 2022-06-14 07:19 | PN.HOSP_ITS ---
Subjective Subjective Follow-up on acute diarrhea/GI bleed: Patient was seen and examined. She was seen by GI and vascular surgery. Juan Pablo reciate recommendations. She refused colonoscopy. She has been having loose stool. Stool for C. difficile and enteric panel negative. ESR and CRP elevated. No other acute events overnight Objective Data Objective Data Vital Signs: Vital Signs Temp Pulse Resp BP Pulse Ox O2 Del Method 98.5 F 95 18 116/65 97 Room Air 06/14/22 02:57 06/14/22 03:01 06/14/22 02:57 06/14/22 02:57 06/14/22 02:57 06/14/22 02:57 Oxygen Delivery Method Room Air Weight: 78 kg Body Mass Index (BMI) 33.4 Intake & Output: Intake and Output for Last 24 Hours 06/12/22 06/13/22 06/14/22 23:59 23:59 23:59 Intake Total 1270.18 / 1390.18 1195.72 / 1195.72 Balance 1270.18 / 1390.18 1195.72 / 1195.72 Lab / Micro Data Result Diagrams: 06/14/22 06:50 06/14/22 06:50 Labs: Laboratory Results - last 24 hr 06/13/22 09:24: PT 22.1 H, INR 2.0 06/13/22 09:24: APTT 36.9 H 06/13/22 09:30: WBC 6.5, RBC 4.37, Hgb 13.7, Hct 41.7, MCV 95.4, MCH 31.4, MCHC 32.9, RDW Std Deviation 55.1 H, RDW Coeff of Valerie 15.5 H, Plt Count 115 L, MPV 12.3 H, Immature Gran % (Auto) 0.300, Neut % (Auto) 69.6, Lymph % (Auto) 22.7, [place] % (Auto) 6.5, Eos % (Auto) 0.6, Baso % (Auto) 0.3, Absolute Neuts (auto) 4.5, Absolute Lymphs (auto) 1.48, Nucleated RBC % 0 06/13/22 09:30: Sodium 141, Potassium 4.1, Chloride 109 H, Carbon Dioxide 27.0, Anion Gap 5, BUN 19 H, Creatinine 0.39 L, Estim Creat Clear Calc 32.23, Est GFR (MDRD) Af Amer 202, Est GFR (MDRD) Non-Af 167, BUN/Creatinine Ratio 48.5 H, Glucose 113 H, Calcium 8.5 06/13/22 09:30: Lactic Acid 1.3 06/13/22 09:30: Blood Type O POSITIVE, Antibody Screen NEGATIVE 06/13/22 09:30: ESR 47 H 06/13/22 09:30: C-React Prot Ext Range 28.70 H 06/13/22 10:10: Urine Color Brown, Urine Clarity Cloudy, Urine pH 6.0, Ur Specific [place] 1.020, Urine Protein 500 H, Urine Glucose (UA) Normal, Urine Ketones 15 H, Urine Occult Blood 250 H, Urine Nitrite Negative, Urine Bilirubin Negative, Urine Urobilinogen 1 H, Ur Leukocyte Esterase 500 H, Urine RBC 50-100 SEEN, Urine WBC 50-100 SEEN, Ur Squamous Epith Cells 0 SEEN, Urine Bacteria 4+, Urine Mucus 0 SEEN 06/13/22 15:40: Hgb 12.8, Hct 40.8 06/13/22 21:05: Hgb 11.8 L, Hct 36.4 L 06/14/22 00:35: APTT > 200.0 H* 06/14/22 06:50: WBC 5.4, RBC 3.83 L, Hgb 11.7 L, Hct 36.5 L, MCV 95.3, MCH 30.5, MCHC 32.1, RDW Std Deviation 55.0 H, RDW Coeff of Valerie 15.6 H, Plt Count 120 L, MPV 12.4 H, Immature Gran % (Auto) 0.200, Neut % (Auto) 50.9, Lymph % (Auto) 39.5, [place] % (Auto) 7.7, Eos % (Auto) 1.3, Baso % (Auto) 0.4, Absolute Neuts (a uto) 2.8, Absolute Lymphs (auto) 2.15, Nucleated RBC % 0 Micro: Microbiology 06/13/22 09:50 Stool Enteric Bacteriology - Final 06/13/22 09:50 Stool C. difficile DNA Amplification - Final 06/13/22 09:50 Stool Stool Occult Blood (KODY) - Final Occult Blood Positive 06/13/22 09:57 Nasal Secretion SARS-CoV-2 Antigen (Rapid) - Final Physical Exam Narrative Physical exam: General: Alert, Oriented x3, Cooperative, obese HEENT: Atraumatic Oral: Moist Mucosa Neck: Supple Lungs: Diminished to auscultation Cardiovascular: HS I+II, regular, no murmurs Abdomen: Bowel Sounds Present, Soft, Non Tender Extremities: Bilateral pedal edema +2, trace Skin: No rashes, No breakdown Neurological: Grossly intact Psych/Mental Status: Appropriate Assessment & Plan Assessment/Plan (1) Diarrhea: (2) Acute GI bleeding: PLAN: Plan 1. Acute diarrhea, acute C. difficile negative, enteric panel negative, persistent Will start on Imodium, continue to monitor 2. Acute GI bleed, unclear etiology, patient refused colonoscopy Continue on pantoprazole IV twice daily for now 3. Acute blood loss anemia secondary to #2, hemoglobin dropped from 13.7 to 11.7 We will continue to trend Will transfuse for hemoglobin less than 7 4. Acute hemolytic strep UTI, with hematochezia Continue on IV ceftriaxone Follow-up on urine culture 5. Acute DVT, recently diagnosed on 06/06/2022, Vascular surgery consulted for possible IVC filter; will hold off on this as patient does not seem to have an acute drop in hemoglobin Transition patient back to [facility] 6. History of CVA with right hemiplegia, complicates care and prognosis Continue on aspirin and Eliquis as well as statin 7.Obesity, BMI 33.5, complicates care and prognosis 8. DVT prophylaxis?Eliquis Charges/Coding Visit Charges Inpatient E&M: 65073 Subs Hosp L2
[2022-06-14 07:33] LABS: ALB/GLOB Ratio 0.6 RATIO (0.9-2.4); AST(SGOT) 24 U/L (15-37); Alanine Aminotransfer ALT/SGPT 11 U/L (13-56); Albumin, Serum 2.1 g/dL (3.2-5.0); Alkaline Phosphatase 96 U/L (45-117); Anion Gap 5 (5-15); BUN 16 mg/dL (7-18); BUN/Creat Ratio 44.9 RATIO (10-20); Calcium,Total 7.9 mg/dL (8.5-10.1); Chloride 112 mmol/L (98-107); Creatinine, Serum 0.36 mg/dL (0.55-1.02); EST Glomerular Filtration Rate 187 mL/min (>60); Est Glom Filt Rate - Afr Amer 226 mL/min (>60); Estimated Creatinine Clearance 32.23 ml/min; Globulin 3.6 g/dL (2.2-4.2); Glucose 112 mg/dL (74-106); Potassium 3.5 mmol/L (3.5-5.1); Protein, Total 5.7 g/dL (6.4-8.2); Sodium Level 142 mmol/L (136-145)
--- NOTE | 2022-06-14 08:21 | VDLE_ITS ---
Reason For Study: Swelling RIGHT GSV is normal. CFV, FV and PopV are partially noncompressible with hypogenic echoes and minimal flow noted. T/P Trunk is compressible. PTV is compressible. RT PerV is compressible. Procedure This is a venous duplex using B-mode, color flow and spectral Doppler. Exam performed portable in patient room. The study was technically difficult. A preliminary report was called and/or faxed to [facility]. VL/Venous Duplex US, Unilateral Interpretation Summary Subacute deep vein thrombosis is noted in the right common femoral vein, femora l vein, popliteal vein. Ordering Physician: Ramy Freed Referring Physician: Azar Rudolph Performed By: Yudith Dorantes RVT
[2022-06-14] MEDS: Ceftriaxone 1 GM/50 ML BAG IV (09:54)
[2022-06-14 10:10] LABS: Partial Thromboplast Time 118.5 Seconds (24.1-36.2)
--- NOTE | 2022-06-14 10:10 | CASEMGMT ---
Patient is from [facility] [place]. 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 Plan: d/c back to [facility] when medically ready. Rut MANZO
[2022-06-14] MEDS: Loperamide 2 MG Capsule 4 MG PO (11:06)
[2022-06-14] MEDS: Creon 24,000 unit DR Capsule 1 CAP PO ×2 (11:06→17:27)
[2022-06-14] MEDS: APIXABAN 5 MG TABLET PO ×2 (13:23→22:59)
[2022-06-14] MEDS: Aspirin 81 MG TAB.CHEW PO (14:55)
--- NOTE | 2022-06-14 16:44 | PN.SURG_ITS ---
Subjective Subjective No specific complaints, uncertain if BM still loose. Objective Data Objective Data Vital Signs: Vital Signs Temp Pulse Resp BP Pulse Ox O2 Del Method 98.2 F 94 18 98/52 L 98 Room Air 06/14/22 15:00 06/14/22 15:05 06/14/22 15:00 06/14/22 15:00 06/14/22 15:00 06/14/22 15:00 Oxygen Delivery Method Room Air Weight: 171 lb 15.369 oz Body Mass Index (BMI) 33.4 Intake & Output: Intake and Output for Last 24 Hours 06/12/22 06/13/22 06/14/22 23:59 23:59 23:59 Intake Total 1270.18 / 1390.18 1770.92 / 1770.92 Balance 1270.18 / 1390.18 1770.92 / 1770.92 Lab / Micro Data Result Diagrams: 06/14/22 06:50 06/14/22 06:50 Labs: Laboratory Results - last 24 hr 06/13/22 09:24: APTT 36.9 H 06/13/22 09:30: Blood Type O POSITIVE, Antibody Screen NEGATIVE 06/13/22 09:30: ESR 47 H 06/13/22 09:30: C-React Prot Ext Range 28.70 H 06/13/22 21:05: Hgb 11.8 L, Hct 36.4 L 06/14/22 00:35: APTT > 200.0 H* 06/14/22 06:50: WBC 5.4, RBC 3.83 L, Hgb 11.7 L, Hct 36.5 L, MCV 95.3, MCH 30.5, MCHC 32.1, RDW Std Deviation 55.0 H, RDW Coeff of Valerie 15.6 H, Plt Count 120 L, MPV 12.4 H, Immature Gran % (Auto) 0.200, Neut % (Auto) 50.9, Lymph % (Auto) 39.5, [place] % (Auto) 7.7, Eos % (Auto) 1.3, Baso % (Auto) 0.4, Absolute Neuts (auto) 2.8, Absolute Lymphs (auto) 2.15, Nucleated RBC % 0 06/14/22 06:50: Sodium 142, Potassium 3.5, Chloride 112 H, Carbon Dioxide 25.0, Anion Gap 5, BUN 16, Creatinine 0.36 L, Estim Creat Clear Calc 32.23, Est GFR (MDRD) Af Amer 226, Est GFR (MDRD) Non-Af 187, BUN/Creatinine Ratio 44.9 H, Glucose 112 H, Calcium 7.9 L, Total Bilirubin 0.40, AST 24, ALT 11 L, Alkaline Phosphatase 96, Total Protein 5.7 L, Albumin 2.1 L, Globulin 3.6, Albumin/Globulin Ratio 0.6 L 06/14/22 09:20: APTT 118.5 H* Micro: Microbiology 06/13/22 10:10 Urine, Catheterized Urine Culture - Preliminary Alpha Hemolytic Streptococcus 06/13/22 09:50 Stool Enteric Bacteriology - Final 06/13/22 09:50 Stool C. difficile DNA Amplification - Final 06/13/22 09:50 Stool Stool Occult Blood (KODY) - Final Occult Blood Positive 06/13/22 09:57 Nasal Secretion SARS-CoV-2 Antigen (Rapid) - Final Radiography Diagnostic Testing: Radiology Impression Venous Doppler Study 06/14/22 08:21 Interpretation Summary Subacute deep vein thrombosis is noted in the right common femoral vein, femoral vein, popliteal vein. Ordering Physician: Ramy Freed Referring Physician: Azar Rudolph Performed By: Yudith Dorantes Paxton Physical Exam Const alert, oriented x3, no apparent distress and healthy appearing General Appearance: cooperative; Negative for combative or lethargic Orientation / Consciousness: awake Exam Limitations: no limitations HEENT Head and Scalp: normocephalic and atraumatic Eyes EOMs intact bilaterally General Eye: normal appearance of both eyes Neck General: trachea midline Lymph Lymphatic: Negative for no lymphadenopathy noted Resp normal respiratory effort and no use of accessory muscles Effort and Inspection: Negative for labored, stridor or audible wheezes Cardio regular rate and regular rhythm Back/Spine Cervical Spine: cervical ROM normal Neuro oriented x3 and CN's II-XII intact bilaterally Psych thought process normal, cooperative, affect normal, speech normal and activity/motor behavior normal Assessment & Plan Assessment/Plan (1) DVT (deep venous thrombosis): PLAN: -duplex confirms common femoral, femoral, popliteal DVT -brandyn heparin, Hgb stable -suspect no significant bleeding -will sign off, reconsult if new concern for need of filter arises
--- NOTE | 2022-06-14 16:58 | PN_ITS ---
Subjective Subjective She has been tolerating a diet and she says that her diarrhea is little better. She is still refusing any endoscopic procedures. She denies any abdominal pain. She does get some urgency when she has to go to the bathroom. She was started on colestipol therapy for her diarrhea that at this time does not indicate infectious colitis. Objective Data Objective Data Vital Signs: Vital Signs Temp Pulse Resp BP Pulse Ox O2 Del Method 98.2 F 94 18 98/52 L 98 Room Air 06/14/22 15:00 06/14/22 15:05 06/14/22 15:00 06/14/22 15:00 06/14/22 15:00 06/14/22 15:00 Oxygen Delivery Method Room Air Weight: 171 lb 15.369 oz Body Mass Index (BMI) 33.4 Intake & Output: Intake and Output for Last 24 Hours 06/12/22 06/13/22 06/14/22 23:59 23:59 23:59 Intake Total 1270.18 / 1390.18 1770.92 / 1770.92 Balance 1270.18 / 1390.18 1770.92 / 1770.92 Lab / Micro Data Result Diagrams: 06/14/22 06:50 06/14/22 06:50 Labs: Laboratory Results - last 24 hr 06/13/22 09:24: APTT 36.9 H 06/13/22 09:30: Blood Type O POSITIVE, Antibody Screen NEGATIVE 06/13/22 09:30: ESR 47 H 06/13/22 09:30: C-React Prot Ext Range 28.70 H 06/13/22 21:05: Hgb 11.8 L, Hct 36.4 L 06/14/22 00:35: APTT > 200.0 H* 06/14/22 06:50: WBC 5.4, RBC 3.83 L, Hgb 11.7 L, Hct 36.5 L, MCV 95.3, MCH 30.5, MCHC 32.1, RDW Std Deviation 55.0 H, RDW Coeff of Valerie 15.6 H, Plt Count 120 L, MPV 12.4 H, Immature Gran % (Auto) 0.200, Neut % (Auto) 50.9, Lymph % (Auto) 39.5, Kerr % (Auto) 7.7, Eos % (Auto) 1.3, Baso % (Auto) 0.4, Absolute Neuts (auto) 2.8, Absolute Lymphs (auto) 2.15, Nucleated RBC % 0 06/14/22 06:50: Sodium 142, Potassium 3.5, Chloride 112 H, Carbon Dioxide 25.0, Anion Gap 5, BUN 16, Creatinine 0.36 L, Estim Creat Clear Calc 32.23, Est GFR (MDRD) Af Amer 226, Est GFR (MDRD) Non-Af 187, BUN/Creatinine Ratio 44.9 H, Glu cose 112 H, Calcium 7.9 L, Total Bilirubin 0.40, AST 24, ALT 11 L, Alkaline Phosphatase 96, Total Protein 5.7 L, Albumin 2.1 L, Globulin 3.6, Albumin/Globulin Ratio 0.6 L 06/14/22 09:20: APTT 118.5 H* Micro: Microbiology 06/13/22 10:10 Urine, Catheterized Urine Culture - Preliminary Alpha Hemolytic Streptococcus 06/13/22 09:50 Stool Enteric Bacteriology - Final 06/13/22 09:50 Stool C. difficile DNA Amplification - Final 06/13/22 09:50 Stool Stool Occult Blood (KODY) - Final Occult Blood Positive 06/13/22 09:57 Nasal Secretion SARS-CoV-2 Antigen (Rapid) - Final Radiography Diagnostic Testing: Radiology Impression Venous Doppler Study 06/14/22 08:21 Interpretation Summary Subacute deep vein thrombosis is noted in the right common femoral vein, femoral vein, popliteal vein. Ordering Physician: Ramy Freed Referring Physician: Azar Rudolph Performed By: Yudith Dorantes Paxton Physical Exam Const alert, oriented x3, no apparent distress and healthy appearing General Appearance: cooperative; Negative for combative or lethargic Orientation / Consciousness: awake Exam Limitations: no limitations HEENT Head and Scalp: normocephalic and atraumatic Eyes EOMs intact bilaterally General Eye: normal appearance of both eyes Neck General: trachea midline Lymph Lymphatic: Negative for no lymphadenopathy noted Resp normal respiratory effort and no use of accessory muscles Effort and Inspection: Negative for labored, stridor or audible wheezes Cardio regular rate and regular rhythm Back/Spine Cervical Spine: cervical ROM normal Neuro oriented x3 and CN's II-XII intact bilaterally Psych thought process normal, cooperative, affect normal, speech normal and activity/motor behavior normal Assessment & Plan Assessment/Plan (1) Acute GI bleeding: PLAN: On the same GI bleeding with her on heparin drip. Therefore anticoagulation is not contraindicated at this time. She has extensive DVT that requires anticoagulation if she does start to bleed we can possibly readdress whether she needs a colonoscopy. (2) Diarrhea: PLAN: At this time I think she has a secretory diarrhea of unknown cause. The diagnosis would include lymphocytic colitis, collagenous colitis or microscopic colitis. She is on colestipol 1 g p.o. twice daily. I would recommend to add budesonide therapy 6 to 9 mg/day while she is in the hospital and to transition out of the hospital. Charges/Coding Visit Charges Inpatient E&M: 01001 Subs Hosp L2
[2022-06-14] MEDS: Budesonide 3 MG CAPSULE.EC 6 MG PO (17:27)
[2022-06-14] MEDS: Colestipol 1 GM TABLET PO (17:27)
[2022-06-14] MEDS: 0.9% Saline Lock 10 ML Syringe IV (22:59)
[2022-06-14] MEDS: Pramipexole Di-HCl 0.125 MG Tablet PO (22:59)
[2022-06-15 03:00] VITALS: PULSE 88
[2022-06-15 06:18] VITALS: BP 113/61; PULSE 97; RESP 16; TEMP 36.2; O2SAT 97
[2022-06-15] MEDS: Nystatin Powder 15gm Bottle 1 APPLIC TOPICAL (06:22)
[2022-06-15] MEDS: 0.9% Saline Lock 10 ML Syringe IV (06:24)
[2022-06-15] MEDS: Colestipol 1 GM TABLET PO (06:25)
[2022-06-15 06:40] LABS: Absolute Lymphocyte Count 2.14 X10^3/uL (0.83-4.51); Basophil# 0.01 X10^3/uL; Basophil% 0.2 % (0-1); Eosinophil# 0.03 X10^3/uL; Eosinophils% 0.7 % (0-5); Hematocrit 30.9 % (37-47); Hemoglobin 10.1 g/dL (12.0-15.0); Lymphocyte # 2.14 X10^3/ul (0.83-4.51); Lymphocyte % 47.7 % (19-41); Mean Corp Hgb Conc 32.7 g/dL (32-36); Mean Corpuscular Volume 94.8 fL (81-99); Monocyte# 0.29 X10^3/uL; Monocyte% 6.5 % (0-10); NRBC Flagged by Analyzer 0 % (0-5); Neutrophil # 2.01 X10^3/uL (2.7-7.7); Neutrophil % 44.7 % (47-70); Platelet Count 101 K/mm3 (150-450); RBC Distribution Width CV 15.9 % (11.6-14.6); RBC Distribution Width SD 55.3 fl (35.1-43.9); Red Blood Count 3.26 M/mm3 (4.2-5.4); White Blood Count 4.5 K/mm3 (4.4-11.0)
[2022-06-15 07:02] VITALS: PULSE 90
[2022-06-15 07:12] LABS: Phosphorus 1.6 mg/dL (2.5-4.9)
[2022-06-15 07:14] LABS: ALB/GLOB Ratio 0.6 RATIO (0.9-2.4); AST(SGOT) 14 U/L (15-37); Alanine Aminotransfer ALT/SGPT 10 U/L (13-56); Alkaline Phosphatase 88 U/L (45-117); Anion Gap 5 (5-15); BUN 14 mg/dL (7-18); BUN/Creat Ratio 43.9 RATIO (10-20); Chloride 112 mmol/L (98-107); Creatinine, Serum 0.32 mg/dL (0.55-1.02); EST Glomerular Filtration Rate 212 mL/min (>60); Est Glom Filt Rate - Afr Amer 256 mL/min (>60); Estimated Creatinine Clearance 32.23 ml/min; Globulin 3.3 g/dL (2.2-4.2); Glucose 97 mg/dL (74-106); Potassium 3.6 mmol/L (3.5-5.1); Protein, Total 5.3 g/dL (6.4-8.2); Sodium Level 142 mmol/L (136-145)
[2022-06-15] MEDS: Ceftriaxone 1 GM/50 ML BAG IV (09:26)
[2022-06-15] MEDS: Budesonide 3 MG CAPSULE.EC 6 MG PO (09:28)
[2022-06-15] MEDS: Creon 24,000 unit DR Capsule 1 CAP PO ×2 (09:28→13:48)
[2022-06-15] MEDS: APIXABAN 5 MG TABLET PO (09:28)
[2022-06-15] MEDS: Aspirin 81 MG TAB.CHEW PO (09:28)
[2022-06-15 10:00] VITALS: BP 102/64; PULSE 98; RESP 20; TEMP 36.3; O2SAT 98
[2022-06-15 10:30] VITALS: BP 102/64; PULSE 98; RESP 20; TEMP 36.3; O2SAT 98
--- NOTE | 2022-06-15 12:06 | TREXTCAR_ITS ---
Diet Diet Order/Speech Therapy: 06/14/22 10:38 Diet: Cardiac - Heart Healthy Is pt able to select menu?: Yes Routine Orders/Code Status Suppository Type: Dulcolax 10mg Suppository Frequency: Daily PRN Keep PO Greater than or Equal to (%): 94 Routine Lab Work: CBC (within 3 days) and - (CMP within 3 days) Code Status: Full Code Therapies Weight Bearing: Weight bearing as tolerated Physical Therapy: Eval and Treat Occupational Therapy: Eval and Treat Problem/Diagnosis (1) Acute GI bleeding: Status: Acute Code(s): K92.2 - Gastrointestinal hemorrhage, unspecified (2) Diarrhea: Status: Acute Code(s): R19.7 - Diarrhea, unspecified Plan 1. Acute diarrhea, acute C. difficile negative, enteric panel negative 2. Acute GI bleed, unclear etiology 3. Acute blood loss anemia secondary to #2 4. Acute hemolytic strep UTI, with hematochezia 5. Acute DVT 6. History of CVA with right hemiplegia, complicates care and prognosis 7.Obesity, BMI 33.5, complicates care and prognosis Allergies/Procedures Done in Hospital Allergies morphine Allergy (Verified 06/13/22 09:09) Anaphylaxis Penicillins [PCN] Allergy (Verified 06/13/22 09:09) Unknown Procedures: None Type of Care/Length of Stay Estimated LOS: Convalescent Care Less Than 30 days Type of Care Needed: Skilled Rehab Potential: Good Prognosis: Good Additional Orders/Day of Discharge Day of Discharge: 06/15/22 Dietary and Speech Recommendations Dietitian Recommendations/Changes: ADAT to Cardiac diet when medically able. Recommend Ensure Clear 120mL 4x daily when diet advances. Discharge Plan Admission Admit Date/Time: 06/13/22 12:50 Primary Reason for Your Visit: Acute diarrhea, acute GI bleed Attending Provider: Belkis Bowles Primary Care Provider: Azar Rudolph Consulting Providers: Ramy Freed Discharge Orders/Prescriptions Prescriptions: New furosemide 20 mg Tablet 20 mg PO DAILY 30 Days Qty: 0 0RF nystatin [Nyamyc] 100,000 unit/gram Powder 1 applic topical TID Qty: 15 0RF Protocol: *Topical Application Instructions APPLICATION INSTRUCTIONS: to affected regions Rx Instructions: apply to intertriginous areas budesonide 3 mg Capsule,Delayed,Extend.Release 6 mg PO DAILY 30 Days Qty: 0 0RF colestipol 1 gram Tablet 1 g PO BID@0600,1800 30 Days Qty: 0 0RF potassium, sodium phosphates 280-160-250 mg Powder In Packet 1 packet PO 4X/DAY 4 Days Qty: 0 0RF Rx Instructions: for 1 day Creon 24,000-76,000 -120,000 unit Capsule,Delayed Release(Dr/Ec) 1 cap PO TIDCM 30 Days Qty: 0 0RF pantoprazole 40 mg tablet,delayed release (DR/EC) 40 mg PO BID 30 Days Qty: 60 0RF cefdinir 300 mg capsule 300 mg PO BID 5 Days Qty: 10 0RF Continued ropinirole 0.25 MG tablet 0.25 mg PO QHS Eliquis 5 mg tablet 5 mg PO BID Rx Instructions: 10 mg twice a day for the first week. Then 5 mg twice a day. ondansetron HCl 4 mg Tablet 4 mg PO Q6H PRN (Reason: Nausea) acetaminophen 650 mg Tablet Extended Release 650 mg PO Q6H PRN (Reason: Pain) metronidazole 0.75 % Cream 1 applic TOPICAL BID aspirin 81 MG tablet,chewable 81 mg PO DAILY Referrals / Follow Up: Azar Rudolph MD [Primary Care Provider] - Friend,DO Price [Med Staff - Active Staff] - 06/19/22 3:15 pm Disposition Disposition (needs filled in before D/C Order can be placed): [facility]
[2022-06-15] MEDS: Na Biphos/Potassium Phosphate PACKET 1 PACKET PO (13:48)
[2022-06-15] MEDS: Furosemide 20 MG Tablet PO (13:48)
--- NOTE | 2022-06-15 14:36 | CASEMGMT ---
Patient is ready to be discharged back to [facility]. SW asked DC Color Coater to please assist with d/c back to [facility]. Plan: d/c back to [facility] under intermediate level of care. Rut MANZO
--- NOTE | 2022-06-15 14:53 | NURSING ---
Report called to Nurse Bustamante at the [facility] [place] as she will take care of pt as she is transported and DC back
--- NOTE | 2022-06-15 14:56 | CASEMGMT ---
Discharge Galvanizer This rfp writer sent negative covid and d/c orders via [facility] to the [facility]. Called [facility] for transport time of 15:00. Patient and nursing RN Tacos and Mónica at the [facility] made aware. Korey RAPP Comfort Filler
--- NOTE | 2022-06-15 15:11 | NURSING ---
Report given to [facility] for pt as they will transport pt by cot to the [facility] [place].
--- NOTE | 2022-06-26 08:16 | PCM.DC.SUM ---
Providers Date of Admission: 06/13/22 Date of Discharge: 06/15/22 Primary Care Physician: Dr. Azar Rudolph MD Consultations 06/13/22 15:44 Consult: Gastroenterology Routine Consulting Provider: [facility] Reason for Consult: Acute GI bleed EMERGENT Consult: No Notified: Yes Date Notified: 06/13/22 Time Notified: 16:26 Method of Notification: Text 06/13/22 15:45 Consult: Vascular Surgery Routine Consulting Provider: Ramy Freed Reason for Consult: Acute DVT, consideration for IVC filter EMERGENT Consult: No Notified: Yes Date Notified: 06/13/22 Time Notified: 16:27 Method of Notification: Text Reason For Visit: DIARRHEA, UTI Diagnosis Discharge Diagnosis (1) Acute GI bleeding: Status: Acute Code(s): K92.2 - Gastrointestinal hemorrhage, unspecified (2) Diarrhea: Status: Resolved Code(s): R19.7 - Diarrhea, unspecified Plan 1. Acute diarrhea, acute C. difficile negative, enteric panel negative 2. Acute GI bleed, unclear etiology 3. Acute blood loss anemia secondary to #2 4. Acute hemolytic strep UTI, with hematuria 5. Acute DVT 6. History of CVA with right hemiplegia, complicates care and prognosis 7.Obesity, BMI 33.5, complicates care and prognosis Medications at Discharge Home Medications ropinirole 0.25 mg tablet 0.25 mg PO QHS RLS 07/25/20 acetaminophen 650 mg tablet,extended release 650 mg PO Q6H PRN Pain 06/13/22 apixaban 5 mg tablet (Eliquis) 5 mg PO BID BLOOD THINNER 06/13/22 aspirin 81 mg chewable tablet 81 mg PO DAILY HEART 06/13/22 metronidazole 0.75 % topical cream 1 applic topical BID FACE 06/13/22 ondansetron HCl 4 mg tablet 4 mg PO Q6H PRN Nausea 06/13/22 budesonide 3 mg capsule,delayed,extended release 6 mg PO DAILY 30 days #0 ea 06/15/22 cefdinir 300 mg capsule 300 mg PO BID 5 days #10 caps 06/15/22 colestipol 1 gram tablet 1 g PO BID@0600,1800 30 days #0 tabs 06/15/22 furosemide 20 mg tablet 20 mg PO DAILY 30 days #0 tabs 06/15/22 [id number] 24,000-76,000-120,000 unit capsule,delayed rel (Creon) 1 cap PO TIDCM 30 days #0 caps 06/15/22 nystatin 100,000 unit/gram topical powder (Nyamyc) 1 applic topical TID #15 grams 06/15/22 pantoprazole 40 mg tablet,delayed release 40 mg PO BID 30 days #60 tabs 06/15/22 potassium, sodium phosphates 280 mg-160 mg-250 mg oral powder packet 1 packet PO 4X/DAY 4 days #0 ea 06/15/22 Hospital Course Operations None Procedures None Summary of Care Provided Minutes Spent on Discharge: 35 Hospital Course: 82-year-old female with past medical history of CVA with right-sided hemiplegia, recently diagnosed with acute right common femoral vein as well as superficial vein DVT on 06/06/22 in the ED and started on Eliquis. She was sent back to her intermediate. She presented back with frequent stools as well as hematochezia. She denied any abdominal pain no nausea vomiting or dizziness or chest pain or palpitations. In this admission, patient stool studies including C. difficile and enteric panel was negative. She was also found to have acute hemolytic UTI with hematuria. She was started on IV ceftriaxone from admission. Patient also had acute blood loss anemia. GI was consulted as well as vascular surgery. Patient refused colonoscopy. She stated that she knows people that have not done well after having had colonoscopy. Her hemoglobin was trended. She was continued on IV PPI twice daily. Patient was seen by vascular surgery for consideration for possible IVC filter. Patient had a Doppler ultrasound that confirmed same. Patient's hemoglobin remained stable. She was discharged back to the [facility]. It was recommended that she follows up with GI for possible capsule endoscopy if she does not want a full colonoscopy. Physical Exam Narrative Physical exam: General: Alert, Oriented x3, Cooperative, obese HEENT: Atraumatic Oral: Moist Mucosa Neck: Supple Lungs: Diminished to auscultation Cardiovascular: HS I+II, regular, no murmurs Abdomen: Bowel Sounds Present, Soft, Non Tender Extremities: Bilateral pedal edema, trace Skin: No rashes, No breakdown Neurology: Right sided hemiplegia Psych/Mental Status: Appropriate Weight / BMI Weight Weight: 78.1 kg Body Mass Index (BMI) 33.4 ABG / Lab / Microbiology Data Result Diagrams: 06/15/22 05:30 06/15/22 05:30 Microbiology: Microbiology 06/13/22 10:10 Urine, Catheterized Urine Culture - Final Aerococcus urinae Yeast, not Felicita albicans 06/15/22 14:35 Nasal Secretion SARS-CoV-2 Antigen (Rapid) - Final 06/13/22 09:50 Stool Enteric Bacteriology - Final 06/13/22 09:50 Stool C. difficile DNA Amplification - Final 06/13/22 09:50 Stool Stool Occult Blood (KODY) - Final Occult Blood Positive 06/13/22 09:57 Nasal Secretion SARS-CoV-2 Antigen (Rapid) - Final D/C Instructions Discharge Diet: Low fat / Low cholesterol and 2000 mg Sodium Diet Discharge Activity: Return to Normal Activity Meaningful Use Info Meaningful Use Diagnoses (Choose all that apply): None applicable Discharge Plan Admission Admit Date/Time: 06/13/22 12:50 Primary Reason for Your Visit: Acute diarrhea, acute GI bleed Attending Provider: Belkis Bowles Primary Care Provider: Azar Rudolph Consulting Providers: Ramy Freed Discharge Orders/Prescriptions Prescriptions: New furosemide 20 mg Tablet 20 mg PO DAILY 30 Days Qty: 0 0RF nystatin [Nyamyc] 100,000 unit/gram Powder 1 applic topical TID Qty: 15 0RF Protocol: *Topical Application Instructions APPLICATION INSTRUCTIONS: to affected regions Rx Instructions: apply to intertriginous areas budesonide 3 mg Capsule,Delayed,Extend.Release 6 mg PO DAILY 30 Days Qty: 0 0RF colestipol 1 gram Tablet 1 g PO BID@0600,1800 30 Days Qty: 0 0RF potassium, sodium phosphates 280-160-250 mg Powder In Packet 1 packet PO 4X/DAY 4 Days Qty: 0 0RF Rx Instructions: for 1 day Creon 24,000-76,000 -120,000 unit Capsule,Delayed Release(Dr/Ec) 1 cap PO TIDCM 30 Days Qty: 0 0RF pantoprazole 40 mg tablet,delayed release (DR/EC) 40 mg PO BID 30 Days Qty: 60 0RF cefdinir 300 mg capsule 300 mg PO BID 5 Days Qty: 10 0RF Continued ropinirole 0.25 MG tablet 0.25 mg PO QHS Eliquis 5 mg tablet 5 mg PO BID Rx Instructions: 10 mg twice a day for the first week. Then 5 mg twice a day. ondansetron HCl 4 mg Tablet 4 mg PO Q6H PRN (Reason: Nausea) acetaminophen 650 mg Tablet Extended Release 650 mg PO Q6H PRN (Reason: Pain) metronidazole 0.75 % Cream 1 applic TOPICAL BID aspirin 81 MG tablet,chewable 81 mg PO DAILY Referrals / Follow Up: Azar Rudolph MD [Primary Care Provider] - Friend,DO Price [Med Staff - Active Staff] - 06/19/22 3:15 pm Disposition Disposition (needs filled in before D/C Order can be placed): Group Home Facility Charges/Coding Visit Charges Inpatient E&M: 87398 Disch Hosp
== END 2022-06-15 15:20 | disposition skilled nursing facility (03) | DRG 378 ==
LOC: ED 12:54 → PCU 13:46
PROVIDERS: Internal Medicine Gastroenterology; Admitting Provider Internal Medicine; Emergency Provider Emergency Medicine; PCP Family Medicine; Visit Provider Internal Medicine
DX: K92.1 Melena (principal); I82.411 Acute embolism and thrombosis of right femoral vein; I69.351 Hemiplegia and hemiparesis following cerebral infarction affecting right dominant side; D62 Acute posthemorrhagic anemia; I82.431 Acute embolism and thrombosis of right popliteal vein; N39.0 Urinary tract infection, site not specified; E78.5 Hyperlipidemia, unspecified; N18.9 Chronic kidney disease, unspecified; K21.9 Gastro-esophageal reflux disease without esophagitis; K62.3 Rectal prolapse; R19.7 Diarrhea, unspecified; A08.4 Viral intestinal infection, unspecified; R31.0 Gross hematuria; B95.0 Streptococcus, group A, as the cause of diseases classified elsewhere; E66.9 Obesity, unspecified; Z68.33 Body mass index [BMI] 33.0-33.9, adult; Z79.01 Long term (current) use of anticoagulants; Z79.82 Long term (current) use of aspirin; Z20.822 Contact with and (suspected) exposure to COVID-19; Z87.891 Personal history of nicotine dependence
CPT/HCPCS: 36415; 80048; 80053; 81001; 82274; 83605; 83735; 84100; 85014; 85018; 85025; 85610; 85652; 85730; 86140; 86850; 86900; 86901; 87077; 87086; 87088; 87426; 87493; 87506; 87811; 93971; 99285; J7030; J7040; A4216

== ENCOUNTER 2022-06-16 14:43 | Emergency (ER) | payer MEDICARE, MEDICAID, SELFPAY ==
[2022-06-16 14:44] VITALS: PULSE 88; RESP 16; TEMP 36.6; O2SAT 98; BMI 35.9
[2022-06-16 14:49] VITALS: BP 135/68
--- NOTE | 2022-06-16 15:15 | EX.ED.DYSGE1 ---
HPI <JULIO CÉSAR Panchal - Last Filed: 06/16/22 18:12> History of Present Illness Chief Complaint: GI Bleed Narrative Narrative: 82-year-old female with PMH of HTN, HLD, CKD, DVT on Eliquis presents with blood in her stool. She states the last 2 weeks she has had a intermittently dark diarrhea. She was admitted here from 06/13 through 06/15 for UTI and GI bleed. Stool panel was negative for C. difficile or clear etiology. She was evaluated by Dr. Melgar but refused endoscopic procedures. She was started on colestipol therapy for her diarrhea. She states that she left the hospital 24 hours ago she has been taking Imodium which slowed down her diarrhea. She had 2 bowel movements this morning and the nurse was concerned it was bloody and sent her back to the ED. She denies abdominal pain and is asymptomatic. Of note her right leg DVT is extensive and does require continued anticoagulation. 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 Hyperlipemia Neuromuscular dysfunction of bladder, unspecified Other hammer toe(s) (acquired), right foot Polyneuropathy, unspecified Restless legs syndrome Urinary tract infection, site not specified Home Medications ropinirole 0.25 mg tablet 0.25 mg PO QHS RLS 07/25/20 [History Last Taken 06/12/22] acetaminophen 650 mg tablet,extended release 650 mg PO Q6H PRN Pain 06/13/22 [History Last Taken 06/09/22] apixaban 5 mg tablet (Eliquis) 5 mg PO BID BLOOD THINNER 06/13/22 [History Last Taken 06/13/22] aspirin 81 mg chewable tablet 81 mg PO DAILY HEART 06/13/22 [History Last Taken 06/13/22] metronidazole 0.75 % topical cream 1 applic topical BID FACE 06/13/22 [History Last Taken 06/13/22] ondansetron HCl 4 mg tablet 4 mg PO Q6H PRN Nausea 06/13/22 [History Last Taken 06/13/22] budesonide 3 mg capsule,delayed,extended release 6 mg PO DAILY 30 days #0 ea 06/15/22 [Rx Last Taken Unknown] cefdinir 300 mg capsule 300 mg PO BID 5 days #10 caps 06/15/22 [Rx Last Taken Unknown] colestipol 1 gram tablet 1 g PO BID@0600,1800 30 days #0 tabs 06/15/22 [Rx Last Taken Unknown] furosemide 20 mg tablet 20 mg PO DAILY 30 days #0 tabs 06/15/22 [Rx Last Taken Unknown] gmyqja-fwwfpktg-mjcixkb 24,000-76,000-120,000 unit capsule,delayed rel (Creon) 1 cap PO TIDCM 30 days #0 caps 06/15/22 [Rx Last Taken Unknown] nystatin 100,000 unit/gram topical powder (Nyamyc) 1 applic topical TID #15 grams 06/15/22 [Rx Last Taken Unknown] pantoprazole 40 mg tablet,delayed release 40 mg PO BID 30 days #60 tabs 06/15/22 [Rx Last Taken Unknown] potassium, sodium phosphates 280 mg-160 mg-250 mg oral powder packet 1 packet PO 4X/DAY 4 days #0 ea 06/15/22 [Rx Last Taken Unknown] Allergy/AdvReac Type Severity Reaction Status Date / Time morphine Allergy Anaphylaxis Verified 06/16/22 14:43 Penicillins [PCN] Allergy Unknown Verified 06/16/22 14:43 Family History unable to obtain Social History Smoking Status: Former smoker substance use type: does not use ROS <JULIO CÉSAR Panchal - Last Filed: 06/16/22 18:12> ROS ED ROS Narrative Constitutional: Negative for fever, chills, malaise. Eyes: Negative for visual change. ENT: Negative for sore throat, ear pain, rhinorrhea. CVS: Negative for palpitations, chest pain, syncope. Respiratory: Negative for shortness of breath, cough, orthopnea. GI: Positive for diarrhea, melena. Negative for abdominal pain, nausea, vomiting, constipation, hematochezia. : Negative for dysuria. Neuro: Negative for headache, motor/sensory dysfunction. Skin: Negative for rash, abscess, or wound. Musc: Negative for joint pain, swelling, trauma. Heme: Negative for easy bruising, bleeding, lymphadenopathy. EXAM <JULIO CÉSAR Panchal - Last Filed: 06/16/22 18:12> Physical Exam Narrative Exam Narrative: CONST: Patient sitting in no acute distress. EYES: Normal inspection. NECK: Normal inspection. RESP: No respiratory distress, CTAB. CVS: Regular rate and rhythm, no murmur, no gallop. ABD: Soft and nontender, no guarding or rebound, nondistended. SKIN: Color normal, no rash, warm, dry, intact. EXTREMITIES: Normal appearance, 2+ pedal edema. NEURO: Oriented x4. PSYCH: Normal affect. Const Vital Signs: 06/16/22 14:44 06/16/22 14:49 06/16/22 16:43 Temperature 97.8 F Temperature Source Temporal Pulse Rate 88 78 Respiratory Rate 16 16 Blood Pressure 135/68 H 134/78 H Blood Pressure Mean 90 96 Pulse Ox 98 98 Oxygen Delivery Method Room Air Room Air 06/16/22 19:00 Temperature Temperature Source Pulse Rate 79 Respiratory Rate 14 Blood Pressure 136/64 H Blood Pressure Mean 88 Pulse Ox 99 Oxygen Delivery Method Room Air <Dr. Theo Bell DO - Last Filed: 06/16/22 22:41> Physical Exam Const Vital Signs: 06/16/22 14:44 06/16/22 14:49 06/16/22 16:43 Temperature 97.8 F Temperature Source Temporal Pulse Rate 88 78 Respiratory Rate 16 16 Blood Pressure 135/68 H 134/78 H Blood Pressure Mean 90 96 Pulse Ox 98 98 Oxygen Delivery Method Room Air Room Air 06/16/22 19:00 Temperature Temperature Source Pulse Rate 79 Respiratory Rate 14 Blood Pressure 136/64 H Blood Pressure Mean 88 Pulse Ox 99 Oxygen Delivery Method Room Air [facility] <JULIO CÉSAR Panchal - Last Filed: 06/16/22 18:12> [facility] Narrative Medical decision making narrative: Patient was just discharged yesterday after GI bleed and UTI. She is at her half-way when the staff was concerned there was blood. Its not clear if this is coming from her urine or her stool. Patient is asymptomatic. She appears well and nontoxic with normal vital signs. Abdomen is soft and nontender. Rectal exam showed medium brown stool that is Hemoccult positive. The hemoglobin is actually improved from 10.1 yesterday to 11.4. Normal BUN/creatinine. Since she is on Eliquis and is now agreeable to have a colonoscopy if needed I will contact Dr. Melgar. He states that she could be admitted but would require bowel prep and would likely not have a colonoscopy until Sunday on 06/19. When this was relayed to the patient she states she would rather go back to the [facility] and follow-up with them outpatient. I do feel this is reasonable as she is asymptomatic with normal vitals and hemoglobin is trending up. This information was relayed to SNF so she can follow-up with GI next week. Of note her urine culture from 06/13 showed alphahemolytic Streptococcus with no sensitivities reported yet. She is currently on cefdinir. Attending note: Patient seen and evaluated with marketing programs specialist. I perform my own [id number] evaluation. I agree with the plan of work-up. Sent back in from nursing facility for concerns for blood in the stools. Patient discharged yesterday 2-day stay for GI bleed she declined colonoscopy. Currently states she would have 1 if indicated and recommended. Denies abdominal pain. She had a stroke therefore right-sided deficits. She is on Eliquis. Exam right-sided deficits. Soft abdomen. Alert and oriented x3. Work-up hemoglobin 11.4 up from 10.1 yesterday. Rectal exam per marketing programs specialist brown stools guaiac positive. She is on antibiotics for UTI with culture pending. She initially wanted to stay in the hospital for colonoscopy however as you are speaking with GI Dr. Melgar who knows her, states will need to stay over the weekend for bowel prep and colonoscopy on Sunday. Patient declined stay in the hospital that time therefore will have outpatient follow-up for further testing. Lab Data Labs: Laboratory Results - last 24 hr 06/16/22 06/16/22 15:26 15:26 WBC 5.3 RBC 3.66 L Hgb 11.4 L Hct 35.1 L MCV 95.9 MCH 31.1 MCHC 32.5 RDW Std Deviation 56.0 H RDW Coeff of Valerie 15.8 H Plt Count 123 L MPV 12.2 H Immature Gran % (Auto) 1.100 H Neut % (Auto) 69.0 Lymph % (Auto) 24.1 Craven % (Auto) 5.6 Eos % (Auto) 0.0 Baso % (Auto) 0.2 Absolute Neuts (auto) 3.7 Absolute Lymphs (auto) 1.28 Nucleated RBC % 0 Sodium 144 Potassium 5.1 Chloride 112 H Carbon Dioxide 27.0 Anion Gap 5 BUN 11 Creatinine 0.44 L Estim Creat Clear Calc 32.23 Est GFR (MDRD) Af Amer 177 Est GFR (MDRD) Non-Af 146 BUN/Creatinine Ratio 25.0 H Glucose 111 H Calcium 8.5 <Dr. Theo Bell, DO - Last Filed: 06/16/22 22:41> [facility] MDM Narrative Medical decision making narrative: Patient was just discharged yesterday after GI bleed and UTI. She is at her half-way when the staff was concerned there was blood. Its not clear if this is coming from her urine or her stool. Patient is asymptomatic. She appears well and nontoxic with normal vital signs. Abdomen is soft and nontender. Rectal exam showed medium brown stool that is Hemoccult positive. The hemoglobin is actually improved from 10.1 yesterday to 11.4. Normal BUN/creatinine. Since she is on Eliquis and is now agreeable to have a colonoscopy if needed I will contact Dr. Melgar for disposition. Urine culture from 06/13 showed alphahemolytic Streptococcus with no sensitivities reported yet. She is currently on cefdinir. Attending note: Patient seen and evaluated with marketing programs specialist. I perform my own [id number] evaluation. I agree with the plan of work-up. Sent back in from nursing facility for concerns for blood in the stools. Patient discharged yesterday 2-day stay for GI bleed she declined colonoscopy. Currently states she would have 1 if indicated and recommended. Denies abdominal pain. She had a stroke therefore right-sided deficits. She is on Eliquis. Exam right-sided deficits. Soft abdomen. Alert and oriented x3. Work-up hemoglobin 11.4 up from 10.1 yesterday. Rectal exam per marketing programs specialist brown stools guaiac positive. She is on antibiotics for UTI with culture pending. She initially wanted to stay in the hospital for colonoscopy however as you are speaking with GI Dr. Melgar who knows her, states will need to stay over the weekend for bowel prep and colonoscopy on Sunday. Patient declined stay in the hospital that time therefore will have outpatient follow-up for further testing. Lab Data Labs: Laboratory Results - last 24 hr 06/16/22 06/16/22 15:26 15:26 WBC 5.3 RBC 3.66 L Hgb 11.4 L Hct 35.1 L MCV 95.9 MCH 31.1 MCHC 32.5 RDW Std Deviation 56.0 H RDW Coeff of Valerie 15.8 H Plt Count 123 L MPV 12.2 H Immature Gran % (Auto) 1.100 H Neut % (Auto) 69.0 Lymph % (Auto) 24.1 Craven % (Auto) 5.6 Eos % (Auto) 0.0 Baso % (Auto) 0.2 Absolute Neuts (auto) 3.7 Absolute Lymphs (auto) 1.28 Nucleated RBC % 0 Sodium 144 Potassium 5.1 Chloride 112 H Carbon Dioxide 27.0 Anion Gap 5 BUN 11 Creatinine 0.44 L Estim Creat Clear Calc 32.23 Est GFR (MDRD) Af Amer 177 Est GFR (MDRD) Non-Af 146 BUN/Creatinine Ratio 25.0 H Glucose 111 H Calcium 8.5 Discharge Plan Triage Chief Complaint: GI Bleed ED Midlevel Provider: Meche Price ED Provider: Theo Bell Dx/Rx/DC Orders Clinical Impression: Anemia, Acute GI bleeding Instructions: GI Bleeding Causes and Tests, Anemia Prescriptions: No Action ropinirole 0.25 MG tablet 0.25 mg PO QHS Eliquis 5 mg tablet 5 mg PO BID Rx Instructions: 10 mg twice a day for the first week. Then 5 mg twice a day. ondansetron HCl 4 mg Tablet 4 mg PO Q6H PRN (Reason: Nausea) acetaminophen 650 mg Tablet Extended Release 650 mg PO Q6H PRN (Reason: Pain) metronidazole 0.75 % Cream 1 applic TOPICAL BID aspirin 81 MG tablet,chewable 81 mg PO DAILY furosemide 20 mg Tablet 20 mg PO DAILY 30 Days Qty: 0 0RF nystatin [Nyamyc] 100,000 unit/gram Powder 1 applic topical TID Qty: 15 0RF Protocol: *Topical Application Instructions APPLICATION INSTRUCTIONS: to affected regions Rx Instructions: apply to intertriginous areas budesonide 3 mg Capsule,Delayed,Extend.Release 6 mg PO DAILY 30 Days Qty: 0 0RF colestipol 1 gram Tablet 1 g PO BID@0600,1800 30 Days Qty: 0 0RF potassium, sodium phosphates 280-160-250 mg Powder In Packet 1 packet PO 4X/DAY 4 Days Qty: 0 0RF Rx Instructions: for 1 day Creon 24,000-76,000 -120,000 unit Capsule,Delayed Release(Dr/Ec) 1 cap PO TIDCM 30 Days Qty: 0 0RF pantoprazole 40 mg tablet,delayed release (DR/EC) 40 mg PO BID 30 Days Qty: 60 0RF cefdinir 300 mg capsule 300 mg PO BID 5 Days Qty: 10 0RF Primary Care Provider: Azar Rudolph Referrals: Azar Rudolph MD [Primary Care Provider] - Price Melgar DO [Med Staff - Active Staff] - Activity Restrictions/Additional Instructions: Patient has blood in her stool or GI bleed. Her hemoglobin actually went up and is 11.4. She needs to call Dr. Melgar's office to arrange a colonoscopy. Please call them on Sunday. If symptoms change or worsen return to the ER. Disposition Disposition: Home, Self Care Discharge Date/Time: 06/16/22 20:57
[2022-06-16 15:40] LABS: Absolute Lymphocyte Count 1.28 X10^3/uL (0.83-4.51); Absolute Neutrophil Count 3.7 X10^3/uL (2.0-7.7); Basophil# 0.01 X10^3/uL; Basophil% 0.2 % (0-1); Hematocrit 35.1 % (37-47); Hemoglobin 11.4 g/dL (12.0-15.0); Lymphocyte # 1.28 X10^3/ul (0.83-4.51); Lymphocyte % 24.1 % (19-41); Mean Corp Hgb Conc 32.5 g/dL (32-36); Mean Corpuscular Hgb 31.1 pg (27.0-32.0); Mean Corpuscular Volume 95.9 fL (81-99); Mean Platelet Vol. 12.2 fl (6.2-12.0); Monocyte% 5.6 % (0-10); NRBC Flagged by Analyzer 0 % (0-5); Neutrophil # 3.66 X10^3/uL (2.7-7.7); Platelet Count 123 K/mm3 (150-450); RBC Distribution Width CV 15.8 % (11.6-14.6); Red Blood Count 3.66 M/mm3 (4.2-5.4); White Blood Count 5.3 K/mm3 (4.4-11.0)
[2022-06-16 16:07] LABS: Anion Gap 5 (5-15); BUN 11 mg/dL (7-18); Calcium,Total 8.5 mg/dL (8.5-10.1); Chloride 112 mmol/L (98-107); Creatinine, Serum 0.44 mg/dL (0.55-1.02); EST Glomerular Filtration Rate 146 mL/min (>60); Est Glom Filt Rate - Afr Amer 177 mL/min (>60); Estimated Creatinine Clearance 32.23 ml/min; Glucose 111 mg/dL (74-106); Potassium 5.1 mmol/L (3.5-5.1); Sodium Level 144 mmol/L (136-145)
[2022-06-16 16:43] VITALS: BP 134/78; PULSE 78; RESP 16; O2SAT 98
--- NOTE | 2022-06-16 17:35 | NURSING ---
CALLED [facility], ETA IS 90 MIN
[2022-06-16 19:00] VITALS: BP 136/64; PULSE 79; RESP 14; O2SAT 99
== END 2022-06-16 20:57 | disposition home or self-care (01) ==
PROVIDERS: Physician Assistant; Emergency Provider Emergency Medicine; PCP Family Medicine; Visit Provider Emergency Medicine
DX: K92.2 Gastrointestinal hemorrhage, unspecified (principal); I82.401 Acute embolism and thrombosis of unspecified deep veins of right lower extremity; N39.0 Urinary tract infection, site not specified; E78.5 Hyperlipidemia, unspecified; D64.9 Anemia, unspecified; I12.9 Hypertensive chronic kidney disease with stage 1 through stage 4 chronic kidney disease, or unspecified chronic kidney disease; N18.9 Chronic kidney disease, unspecified; R19.7 Diarrhea, unspecified; Z79.82 Long term (current) use of aspirin; Z79.899 Other long term (current) drug therapy; Z79.01 Long term (current) use of anticoagulants; Z87.891 Personal history of nicotine dependence
CPT/HCPCS: 80048; 82274; 85025; 99282

== ENCOUNTER 2023-01-05 13:10 | Day surgery (SDC) | payer MEDICARE, MEDICAID, SELFPAY ==
[2023-01-05] VITALS (7 sets, daily range): BP systolic 95–139; BP diastolic 54–71; PULSE 81–88; RESP 16–18; TEMP 36.2–36.7; O2SAT 95–100
[2023-01-05] MEDS: Lactated Ringers 1,000 ML 15 ML IV (13:59)
--- NOTE | 2023-01-05 14:32 | HP.PCM_ITS ---
History and Physical Date of Admission: 01/05/23 82 F who presents to the office today for Follow up. Vanessa established with this clinic through [facility] hospitalization. [facility] ED presentation 06.13.22 with diarrhea for five days with worsening of frequency with rectal irritation, abdominal cramping and positive hemoccult test in the setting of apixaban. Hemoglobin 13.7 and dropped to 11.8 in ED. She was admitted for treatment of diarrhea and UTI with hematuria. Gastroenterology consulted same day and CT scan ordered (not performed) as she does not wish to undergo endoscopy. C.Difficile and enteric pathogens negative; hemoccult positive. She was discharged to [facility] 06.15.22 with use of colestipol and budesonide. [facility] ED presentation 06.16.22 with blood in her stool for the last two weeks with a hgb 11.4. She was agreeable to colonoscopy until presented with prep and timeframe and then wished to return to [facility]; which was agreed as she was asymptomatic. She has been having loose stools of an unknown about with intermittent bleeding. Denies abdominal pain. ROS Const Constitutional: No anorexia, fatigue, fever(s), weight change or sleep problems Eyes Eyes: No change in vision ENT ENT: No abnormal hearing, difficulty swallowing, mouth lesions, tongue swelling or throat swelling Resp Respiratory: No cough or shortness of breath Cardio Cardiology: No chest pain at rest, chest pain with exertion, shortness of breath or dyspnea on exertion Gastro GI: No difficulty swallowing Genitourinary-Female: No difficulty urinating or burning urination Musc Musculoskeletal: No joint pain, joint swelling, muscle weakness or decreased muscle mass Skin Skin: No hair loss in leg, yellowing of the eye, itchy eyes, rash, skin ulcer or skin swelling Neuro Neurology: No abnormal hearing, abnormal movements, confusion, unsteady gait/balance or memory loss Psych Psychiatric: No anxiety, No confusion and No memory loss Endo Endocrine: No fatigue or weight change Aller/Imm Allergy/Immunologic: No itchy eyes, throat swelling or tongue swelling Andre/Lymp Hematologic/Lymphatic: No easy bleeding, easy bruising or enlarged lymph nodes Exam Const General: cooperative and comfortable Nutritional Appearance: average body habitus and well nourished HENMT Head: normal to inspection Ears: hearing grossly normal bilaterally Nose: external nose normal Face and sinus: normal facial exam Mouth: oral mucosae normal Throat: posterior oropharynx normal Eyes General: appearance normal, both eyes and all related structures Neck Neck: normal visual inspection Chest Chest palpation & inspection: normal inspection of the chest and normal palpation of entire chest wall Resp Effort & Inspection: normal respiratory effort Auscultation: Bilateral: Clear to Auscultation Cardio Palpation: normal PMI Rate: regular rate Rhythm: regular rhythm GI Inspection: normal to inspection Auscultation: normal bowel sounds Percussion: normal to percussion Palpation: no hepatosplenomegaly Skin General: no rashes or lesions noted Neuro General: patient alert Extrem General: normal to inspection Psych Affect: normal affect Quality Reporting Tobacco Screening ([facility] 138) Smoking Status: Former smoker Assessment and Plan Assessment and Plan (1) Acute GI bleeding: ?Status:?Chronic ?Plan: She needs to get the ultrasound repeated to see if she still has a DVT.? She can undergo a colonoscopy if she wants to find out the etiology of her lower GI bleeding (2) Diarrhea: ?Status:?Acute ?Plan: She has been tolerating a diet and she says that her diarrhea is little better.? She is willing to undergo endoscopic at this time she denies any abdominal pain.? She does get some urgency when she has to go to the bathroom.? Recommend? colestipol therapy for her diarrhea that at this time does not indicate infectious colitis. ? ? ? Orders: Orders Venous Duplex US - [facility] Extrem 08/25/22 I82.409 - Acute embolism and th rombosis of unspecified deep veins of unspecified lower extremity ? CBC W/Diff, Automated 08/25/22 G43.919 - Migraine, unspecified , intractable, without status migrainosus ? Medications: New budesonide ER 9 mg (3 x 3 mg) PO DAILY 90 ea 11RF ? ? I have examined the patient and the H&P has been reviewed. There are no clinical changes since date of exam.
--- NOTE | 2023-01-05 15:06 | OP.COLON_ITS ---
Patient Name: Vanessa Ybarra Procedure Date: 01/05/2023 2:33 PM Date of : 1940 Age: 82 Procedure: Colonoscopy Indications: Clinically significant diarrhea of unexplained origin Providers: Price Melgar DO Referring MD: Price Melgar DO Medicines: Monitored Anesthesia Care Patient Profile: This is an 82 year old female. Refer to note in patient chart for documentation of history and physical. Last Colonoscopy: none. The patient's first colonoscopy is today. Complications: No immediate complications. Procedure: Pre-Anesthesia Assessment: - Prior to the procedure, a History and Physical was performed, and patient medications and allergies were reviewed. The patient is competent. The risks and benefits of the procedure and the sedation options and risks were discussed with the patient. All questions were answered and informed consent was obtained. Patient identification and proposed procedure were verified by the physician in the pre-procedure area. Mental Status Examination: alert and oriented. Airway Examination: normal oropharyngeal airway and neck mobility. Respiratory Examination: clear to auscultation. CV Examination: normal. Prophylactic Antibiotics: The patient does not require prophylactic antibiotics. Prior Anticoagulants: The patient has taken no previous anticoagulant or antiplatelet agents. ASA Grade Assessment: III - A patient with severe systemic disease. After reviewing the risks and benefits, the patient was deemed in satisfactory condition to undergo the procedure. The anesthesia plan was to use monitored anesthesia care (MAC). Immediately prior to administration of medications, the patient was re-assessed for adequacy to receive sedatives. The heart rate, respiratory rate, oxygen saturations, blood pressure, adequacy of pulmonary ventilation, and response to care were monitored throughout the procedure. The physical status of the patient was re-assessed after the procedure. After I obtained informed consent, the scope was passed under direct vision. Throughout the procedure, the patient's blood pressure, pulse, and oxygen saturations were monitored continuously. The colonoscope was introduced through the anus and advanced to the descending colon. The colonoscopy was performed without difficulty. The patient tolerated the procedure well. The quality of the bowel preparation was 90 percent obscured. Scope In: 2:43:06 PM Scope Out: 2:50:28 PM Total Procedure Duration Time 0 hours 7 minutes 22 seconds Findings: The perianal and digital rectal examinations were normal. Pertinent negatives include normal sphincter tone. A large amount of stool was found in the rectum, in the recto-sigmoid colon, in the sigmoid colon, in the descending colon and at the splenic flexure, precluding visualization. Impression: - Stool in the rectum, in the recto-sigmoid colon, in the sigmoid colon, in the descending colon and at the splenic flexure. - No specimens collected. Recommendation: - Discharge patient to home. - Resume previous diet. - Continue present medications. - 2 tablespoons of mineral oil every 6 hours x3 days - 2 fleets enemas twice a day x3 days - 64 ounces of water every day -MiraLAX 17 g mixed and 10 ounces of water twice a day x7 days - No repeat colonoscopy due to age. Procedure Code(s): --- Professional --- 38688, 53, Colonoscopy, flexible; diagnostic, including collection of specimen(s) by brushing or washing, when performed (separate procedure) CPT copyright 2017 [employer]. All rights reserved. The codes documented in this report are preliminary and upon mobile web application developer review may be revised to meet current compliance requirements. Price Melgar DO 01/05/2023 3:06:39 PM This report has been signed electronically. Number of Addenda: 0 Note Initiated On: 01/05/2023 2:33 PM
--- NOTE | 2023-01-05 15:07 | OP.CCLET_ITS ---
01/05/2023 Azar Rudolph MD [address] [id number] Re : Colonoscopy procedure for Vanessa Ybarra Dear Dr. Rudolph This procedure was performed on Thursday, January 05, 2023. My impressions and recommendations are as follows: Impressions : - Stool in the rectum, in the recto-sigmoid colon, in the sigmoid colon, in the descending colon and at the splenic flexure. - No specimens collected. Recommendations : - Discharge patient to home. - Resume previous diet. - Continue present medications. - 2 tablespoons of mineral oil every 6 hours x3 days - 2 fleets enemas twice a day x3 days - 64 ounces of water every day -MiraLAX 17 g mixed and 10 ounces of water twice a day x7 days - No repeat colonoscopy due to age. My findings are described in the full procedure note, which is enclosed. If I can be of further assistance, please feel free to contact me at . Sincerely, Price Melgar, 01/05/2023 3:06:39 PM This report has been signed electronically.
== END 2023-01-05 16:25 | disposition home or self-care (01) ==
LOC: EN 14:22 → AC 14:23
PROVIDERS: PCP Family Medicine; Referring Provider Family Medicine; Visit Provider Internal Medicine Gastroenterology
PROC: 0DJD8ZZ Inspection of Lower Intestinal Tract, Via Natural or Artificial Opening Endoscopic (ICD-10-PCS; CPT 45378; principal; 2023-01-05 14:40)
DX: K92.2 Gastrointestinal hemorrhage, unspecified (principal); R19.7 Diarrhea, unspecified; Z87.891 Personal history of nicotine dependence
CPT/HCPCS: 45378; J7120; J2405

== ENCOUNTER → 2023-03-13 | Outpatient (CLI) | payer MEDICARE, MEDICAID, SELFPAY ==
--- NOTE | 2023-03-13 15:52 | US_ITS ---
EXAM: US PELVIS TRANSABDOMINAL, COMPLETE CLINICAL INDICATION: bleeding TECHNIQUE: Transabdominal pelvic ultrasound was performed with grayscale and color Doppler imaging. COMPARISON: CT scan of the abdomen and pelvis 06/25/2021. FINDINGS: LIMITATIONS: Patient refused transvaginal imaging in the bladder was empty. UTERUS/CERVIX: Uterus not visualized. RIGHT OVARY: Right ovary not visualized. LEFT OVARY: Left ovary not visualized. FREE FLUID: None. BLADDER: Bladder not visualized. US/Pelvic (Non ) IMPRESSION: Very limited exam. Pelvic organs not visualized. Electronically Signed: Se Fagan MD at 22:45 EDT ,
== END | disposition home or self-care (01) ==
LOC: US 15:52
PROVIDERS: PCP Family Medicine; Referring Provider Nurse Practitioner Women's Health; Visit Provider Nurse Practitioner Women's Health
DX: N95.0 Postmenopausal bleeding (principal)
CPT/HCPCS: 76856

== ENCOUNTER 2023-08-06 06:29 | Inpatient (IN) | payer MEDICARE, MEDICAID, SELFPAY ==
[2023-08-06] VITALS (19 sets, daily range): BP systolic 72–102; BP diastolic 45–72; PULSE 80–102; RESP 13–20; TEMP 35.6–36.5; O2SAT 93–100; BMI 29.2; BMI 28.9
[2023-08-06] MEDS: 0.9% Normal Saline (1000mL) 1,000 ML 1000 ML IV ×3 (06:57→10:17)
--- NOTE | 2023-08-06 07:06 | EX.ED.DYSGE1 ---
HPI History of Present Illness Chief Complaint: Hypotension Informant: patient Onset/Context/Timing Onset: Days Context: Gradual Onset Timing: Continuous Quality: Red blood Location: Rectum Worsened by: Nothing Relieved by: Nothing Narrative Narrative: Patient present with rectal bleeding that has been getting worse over the past couple days. Patient states she is having red rectal bleeding. Patient states it has been constant. Patient states it is gradually gotten worse. [facility] states that the patient had a low blood pressure of 70/30 today. Patient states she does feel weak. Patient has had a prior stroke with right-sided weakness. Patient denies any chest pain or shortness of breath. Patient denies any nausea or vomiting. Patient denies abdominal pain. Patient also admits to some hematuria. [facility] Medical History Arthritis Back pain Cataracts, bilateral Chronic kidney disease CVA (cerebral vascular accident) DVT (deep venous thrombosis) Former smoker GERD (gastroesophageal reflux disease) Heartburn History of diverticulitis History of edema History of hiatal hernia History of IBS History of pain when walking Hyperlipemia Leg cramps Lives in care home Low iron Migraine headache Neuromuscular dysfunction of bladder, unspecified Other hammer toe(s) (acquired), right foot Polyneuropathy, unspecified Post-menopausal Rash Restless legs syndrome Syncope Urinary tract infection, site not specified Wears glasses Wears partial dentures Home Medications ropinirole 0.25 mg tablet 0.25 mg PO QHS RLS 07/25/20 [History Last Taken 06/12/22] acetaminophen 650 mg tablet,extended release 1,300 mg PO Q4H PRN Pain 06/13/22 [History Last Taken 06/09/22] apixaban 5 mg tablet (Eliquis) 5 mg PO BID BLOOD THINNER 06/13/22 [History Last Taken 01/03/23] ondansetron HCl 4 mg tablet 4 mg PO Q6H PRN Nausea 06/13/22 [History Last Taken 06/13/22] Allergy/AdvReac Type Severity Reaction Status Date / Time morphine Allergy Anaphylaxis Verified 03/05/23 14:25 Penicillins [PCN] Allergy Unknown Verified 03/05/23 14:25 Family History unable to obtain Surgical History History of back surgery History of Hx laparoscopic cholecystectomy Hx of total knee arthroplasty Social History Smoking Status: Former smoker substance use type: does not use additional social history: Lives at the [facility]. Comes by transport on a cot ROS ROS ED Constitutional Constitutional ED: Denies chills or fever(s) Eyes Eyes: Denies blurry vision or change in vision ENT ENT ED: Denies rhinorrhea or sore throat Cardiovascular Cardiovascular: Denies chest pain or palpitations Respiratory/Chest Respiratory/Chest: Denies cough or dyspnea Gastrointestinal Gastrointestinal: Reports nausea; Denies abdominal pain or vomiting Genitourinary Genitourinary ED: Reports hematuria; Denies dysuria Musculoskeletal Musculoskeletal: Reports back pain; Denies neck pain Integumentary Denies abscess or rash Neurologic Neurologic: Reports weakness; Denies headache(s) Allergic/Immunologic Allergic/Immunologic ED: Denies mouth swelling or urticaria EXAM Physical Exam Const Vital Signs: 08/06/23 06:32 08/06/23 06:34 08/06/23 07:29 Temperature 97.6 F L Temperature Source Temporal Pulse Rate 102 H 92 Respiratory Rate 16 16 Respiratory Pattern Normal Blood Pressure 81/63 L 98/54 L Blood Pressure Mean 69 68 Pulse Ox 95 97 Oxygen Delivery Method Room Air Oxygen Flow Rate (L/min) 08/06/23 10:21 08/06/23 10:23 08/06/23 11:14 Temperature 96.2 F L Temperature Source Temporal Pulse Rate 92 92 88 Respiratory Rate 16 16 18 Respiratory Pattern Blood Pressure 83/62 L 96/67 95/54 L Blood Pressure Mean 69 76 67 Pulse Ox 96 97 100 Oxygen Delivery Method Room Air Room Air Nasal Cannula Oxygen Flow Rate (L/min) 3 Positive well nourished and well developed General Appearance ED: well developed and NAD HEENT Reports moist mucous membranes Neck supple and no JVD Chest Wall palpation of chest normal Resp normal respiratory effort and clear to auscultation bilaterally Cardio regular rate and regular rhythm GI non-distended GI Narrative: Rectal exam showed gross blood. Palpation: soft and tender RLQ; Negative for guarding or rebound tenderness present Neuro oriented x3 and CN's II-XII intact bilaterally Neuro Narrative: Patient has right hemiparesis from previous stroke. Sensorium / Orientation: alert Psych mental status grossly normal MDM MDM MDM Narrative Medical decision making narrative: Differential diagnosis includes lower gastrointestinal bleeding, coagulopathy, anemia, electrolyte abnormality, and diverticulitis. CBC will be obtained to assess for leukocytosis and anemia. Basic metabolic profile will be obtained to assess for electrolyte abnormality and renal function. Urinalysis will be obtained to assess for urinary tract infection and hematuria. CT scan of the abdomen pelvis will be obtained to assess for diverticulitis and colitis. PT was INR and PTT will be obtained to assess for coagulopathy. Lab Data Attestation: I reviewed the patient's lab results. Lab results narrative: CBC was reviewed. There is a stable anemia with a hemoglobin of 10.9 and hematocrit of 34.6. Platelets were normal. White blood cell count was normal. PT with INR and PTT were reviewed. Pro time was 41.8 and INR is 4.3. PTT was 55.8. Comprehensive metabolic profile was reviewed. BUN was 49 and creatinine was 2.19. These are increased from previous results. Serum lactate was reviewed and was normal at 1.9. Lipase was reviewed and was normal at 16. Urinalysis was reviewed. Occult blood was 250 with greater than 100 red blood cells. Leukocyte esterase was 500 with greater than 100 white blood cells. There is no bacteria noted. Labs: Laboratory Results - last 24 hr 08/06/23 08/06/23 08/06/23 06:45 07:04 09:42 WBC 10.1 RBC 4.03 L Hgb 10.9 L Hct 34.6 L MCV 85.9 MCH 27.0 MCHC 31.5 L RDW Std Deviation 61.0 H RDW Coeff of Valerie 19.7 H Plt Count 310 MPV 11.6 Immature Gran % (Auto) 0.700 Neut % (Auto) 64.1 Lymph % (Auto) 29.8 [place] % (Auto) 5.1 Eos % (Auto) 0.1 Baso % (Auto) 0.2 Absolute Neuts (auto) 6.5 Absolute Lymphs (auto) 3.02 Nucleated RBC % 0 PT 41.8 H INR 4.3 H* APTT 55.8 H Sodium 133 L Potassium 3.8 Chloride 102 Carbon Dioxide 17.0 L Anion Gap 14 BUN 49 H Creatinine 2.19 H Estim Creat Clear Calc 15.20 Est GFR (MDRD) Af Amer 28 L Est GFR (MDRD) Non-Af 23 L BUN/Creatinine Ratio 22.4 H Glucose 99 Lactic Acid 1.9 Calcium 8.2 L Total Bilirubin 0.70 Direct Bilirubin 0.19 AST 163 H ALT 36 Alkaline Phosphatase 177 H Troponin I High Sens 5 Total Protein 7.0 Albumin 2.2 L Globulin 4.8 H Lipase 16 Urine Color Red Urine Clarity Turbid Urine pH 7.0 Ur Specific [place] 1.015 Urine Protein 500 H Urine Glucose (UA) Normal Urine Ketones 50 H Urine Occult Blood 250 H Urine Nitrite Negative Urine Bilirubin Negative Urine Urobilinogen Normal Ur Leukocyte Esterase 500 H Urine RBC > 100 SEEN Urine WBC >100 SEEN Ur Squamous Epith Cells 0-5 SEEN Urine Bacteria 0 SEEN Urine Mucus 0 SEEN Radiography Diagnostic Testing: Clinical Impression(s) from Imaging Studies Abdomen/Pelvis CT 08/06/23 07:23 IMPRESSION: Thick-walled urinary bladder with adjacent stranding, consistent with cystitis. Bowel wall thickening in the sigmoid colon, consistent with colitis. No bowel obstruction. 5 mm stone in the left mid ureter with mild left hydroureteronephrosis. Bilateral nonobstructing staghorn renal calculi. No right ureteral stones. No right hydronephrosis. Fatty liver. Electronically Signed: James Pryor MD at 8:37 EST , CT scan of the abdomen pelvis was obtained. There is a thick-walled urinary bladder with adjacent stranding, consistent with cystitis. There is bowel wall thickening of the sigmoid colon consistent with colitis. There is a 5 mm stone in the left mid ureter with left hydroureter and hydronephrosis. There are bilateral nonobstructing staghorn renal calculi noted. This was interpreted by the radiologist and was also independently reviewed by myself. Management Discussion w/another healthcare provider: Hospitalist (Dr. Felton) and Refrigeration Operator (Dr. Carr) Treatment and Re-Evaluation :: Patient was given IV fluids. Patient's blood pressure improved to 95/54. Patient was started on Cipro and Flagyl. Patient was advised of her findings. Patient is agreeable with urologic surgery if absolutely necessary. Case was discussed with the stepdaughter. She stated she is not the medical power of anthropology instructor but is interested in becoming the medical power of anthropology instructor. She is agreeable with admission as well. Case was discussed with Dr. Carr. He will see the patient in consultation. Case will be discussed with the hospitalist for admission. Case was discussed with the hospitalist. He also recommended consulting Dr. Melgar from gastroenterology. He will admit the patient to ICU. Case was discussed with Dr. Melgar. He will see the patient in the hospital. Critical Care Time Critical Care Time: Yes Critical care time (excluding procedures): 30-74 minutes (37), Including time spent:, Discussing w/Patient &/or Family/[place], Discussing w/Consultants, Arranging Admission or Transfer and Performing Direct Patient Care at Bedside Discharge Plan Dx/Rx/DC Orders Clinical Impression: Acute lower gastrointestinal bleeding, Acute UTI, Weakness, Calculus of left ureter, Acute kidney injury Disposition Disposition: [facility]
[2023-08-06 07:18] LABS: Absolute Lymphocyte Count 3.02 X10^3/uL (0.83-4.51); Absolute Neutrophil Count 6.5 X10^3/uL (2.0-7.7); Basophil# 0.02 X10^3/uL; Basophil% 0.2 % (0-1); Eosinophil# 0.01 X10^3/uL; Eosinophils% 0.1 % (0-5); Hematocrit 34.6 % (37-47); Hemoglobin 10.9 g/dL (12.0-15.0); Lymphocyte # 3.02 X10^3/ul (0.83-4.51); Lymphocyte % 29.8 % (19-41); Mean Corp Hgb Conc 31.5 g/dL (32-36); Mean Corpuscular Volume 85.9 fL (81-99); Mean Platelet Vol. 11.6 fl (6.2-12.0); Monocyte# 0.52 X10^3/uL; Monocyte% 5.1 % (0-10); NRBC Flagged by Analyzer 0 % (0-5); Neutrophil # 6.48 X10^3/uL (2.7-7.7); Neutrophil % 64.1 % (47-70); Platelet Count 310 K/mm3 (150-450); RBC Distribution Width CV 19.7 % (11.6-14.6); Red Blood Count 4.03 M/mm3 (4.2-5.4); White Blood Count 10.1 K/mm3 (4.4-11.0)
--- NOTE | 2023-08-06 07:23 | CT_ITS ---
STUDY: CT ABDOMEN AND PELVIS WITHOUT CONTRAST REASON FOR EXAM: Female, 83 years old. Rectal bleeding RADIATION DOSAGE (If Supplied By Facility): CTDIvol = ( 19.71 ) mGy, DLP = ( 1078.47 ) mGycm TECHNIQUE: Transaxial images were obtained from the dome of the diaphragm to the symphysis pubis without oral contrast, and without intravenous contrast. Sagittal and coronal images were reconstructed. Individualized dose optimization techniques were used for this CT. COMPARISON: Prior study dated: 06/25/2021 FINDINGS: Evaluation of the abdominal viscera is limited in the absence of intravenous contrast. Evaluation is further limited by patient motion and by streak artifact due to the patient''s arms being at her sides. LOWER THORAX: The visualized lung bases are clear. The visualized portions of the heart and pericardium are within normal limits. GALLBLADDER / BILE DUCTS: The patient is status post cholecystectomy. The common bile duct is normal in caliber. There are no calcified ductal stones. LIVER: The liver is low in density, consistent with fatty infiltration. There is a calcified granuloma in the liver. SPLEEN: The spleen is normal in size. PANCREAS: The pancreas demonstrates an unremarkable unenhanced appearance. ADRENAL GLANDS: The adrenal glands are within normal limits. KIDNEYS / BLADDER: There is a 5 mm stone in the left mid ureter with mild left hydroureteronephrosis. There are bilateral nonobstructing staghorn calculi. There are no right ureteral stones. There is no right hydronephrosis. There are stable bilateral simple renal cysts. These are benign and do not require follow-up. The bladder is thick-walled with adjacent stranding, consistent with cystitis. STOMACH / BOWEL: Normal visualized stomach. There is no bowel obstruction. There is bowel wall thickening in the sigmoid colon which is consistent with colitis. The appendix is not visualized, but there are no findings to suggest acute appendicitis. PERITONEUM / RETROPERITONEUM: There is no abdominal or pelvic free air, free fluid or fluid collection. There is no abnormal soft tissue mass identified. There is no abdominal or pelvic lymphadenopathy. VESSELS: The aorta is normal in caliber. The IVC is unremarkable. BONES: There are stable postsurgical changes in the spine. There are no destructive osseous lesions. SOFT TISSUES: The visualized soft tissues are within normal limits. CT/Abdomen/Pelvis without Cont IMPRESSION: Thick-walled urinary bladder with adjacent stranding, consistent with cystitis. Bowel wall thickening in the sigmoid colon, consistent with colitis. No bowel obstruction. 5 mm stone in the left mid ureter with mild left hydroureteronephrosis. Bilateral nonobstructing staghorn renal calculi. No right ureteral stones. No right hydronephrosis. Fatty liver. Electronically Signed: James Pryor MD at 8:37 EST ,
[2023-08-06 07:49] LABS: Lactic Acid 1.9 mmol/L (0.4-1.9)
[2023-08-06 08:10] LABS: AST(SGOT) 163 U/L (15-37); Alanine Aminotransfer ALT/SGPT 36 U/L (13-56); Albumin, Serum 2.2 g/dL (3.2-5.0); Alkaline Phosphatase 177 U/L (45-117); Anion Gap 14 (5-15); BUN 49 mg/dL (7-18); BUN/Creat Ratio 22.4 RATIO (10-20); Bilirubin, Direct 0.19 mg/dL (0.00-0.30); Calcium,Total 8.2 mg/dL (8.5-10.1); Chloride 102 mmol/L (98-107); Creatinine, Serum 2.19 mg/dL (0.55-1.02); EST Glomerular Filtration Rate 23 mL/min (>60); Est Glom Filt Rate - Afr Amer 28 mL/min (>60); Globulin 4.8 g/dL (2.2-4.2); Glucose 99 mg/dL (74-106); Lipase 16 U/L (13-75); Potassium 3.8 mmol/L (3.5-5.1); Sodium Level 133 mmol/L (136-145); Troponin-I HS 5 pg/mL (3.0-54.0)
[2023-08-06 08:35] LABS: International Normalized Ratio 4.3; Prothrombin Time (Protime)PT. 41.8 SECONDS (11.7-14.9)
[2023-08-06 08:37] LABS: Partial Thromboplast Time 55.8 Seconds (24.1-36.2)
--- NOTE | 2023-08-06 08:58 | ED.RN ---
LAB CALLED INR OF 4.3. DR DILLARD
[2023-08-06 09:56] LABS: Bacteria 0 SEEN /hpf (None Seen); Mucous, Urine 0 SEEN /hpf (<or=2+)
[2023-08-06 10:09] LABS: Color, Urine Red (Yellow); Glucose, Dipstick Normal (Normal); Ketone-Dipstick 50 mg/dl (Negative); Leukocyte Esterase-Dipstick 500 /ul (Negative); Nitrite-Dipstick Negative (Negative); Occult Blood-Urine 250 /ul (Negative); Protein-Dipstick 500 mg/dl (Negative); Specific Gravity, Urine 1.015 (1.002-1.030); Urine Bilirubin Dipstick Negative (Negative); Urine Clarity Turbid (Clear); Urine Urobilinogen Normal (Normal)
[2023-08-06 10:16] LABS: Red Blood Cells-Urine > 100 SEEN /hpf (0-5); Squamous Epithelial Cells - UA 0-5 SEEN /hpf (5-10); White Blood Cells >100 SEEN /hpf (0-5)
[2023-08-06] MEDS: 0.9% Normal Saline (1000mL) 1,000 ML 150 ML IV ×3 (10:17→21:31)
[2023-08-06] MEDS: Ciprofloxacin 400 MG/200 ML BAG 200 MG IV (10:20)
[2023-08-06] MEDS: metroNIDAZOLE 500 MG/100 ML BAG 100 MG IV ×2 (10:44→21:25)
[2023-08-06] MEDS: Ondansetron 4 MG/2 ML Vial IV (10:44)
--- NOTE | 2023-08-06 11:05 | ED.RN ---
physician speaking with Tasha for pt update
--- NOTE | 2023-08-06 12:22 | NURSING ---
DR DIALLO HOOKS
--- NOTE | 2023-08-06 12:52 | NURSING ---
DR LANDRUM IN ROOM
--- NOTE | 2023-08-06 13:07 | NURSING ---
ICU KITTOE GI BLEED, COLITIS
--- NOTE | 2023-08-06 14:23 | HP.PCM.HOS_ITS ---
[facility] - General General Date of Admission: 08/06/23 Date of Service: 08/06/23 Chief Complaint: Rectal bleeding [facility] Narrative DEMI MORTON, is a 83 F who presents with multiple comorbidities including DVT for which patient is on systemic anticoagulation with apixaban, currently resident at an extended care facility presented with rectal bleeding. Patient symptoms started on the morning of her admission. In addition patient reported feeling weak. Systolic blood pressure at the alf was in the 70s. Was transferred to the emergency department. CT of the abdomen and pelvis obtained on admission did show Thick-walled urinary bladder with adjacent stranding, consistent with cystitis. Bowel wall thickening in the sigmoid colon, consistent with colitis. 5 mm stone in the left mid ureter with mild left hydrouretero nephrosis. Bilateral nonobstructing staghorn renal calculi. No right ureteral stones. No right hydronephrosis. Patient was started on broad-spectrum antibiotic therapy with ciprofloxacin as well as metronidazole admitted to a monitored bed for subsequent management [facility] Medical History Arthritis Back pain Cataracts, bilateral Chronic kidney disease CVA (cerebral vascular accident) DVT (deep venous thrombosis) Former smoker GERD (gastroesophageal reflux disease) Heartburn History of diverticulitis History of edema History of hiatal hernia History of IBS History of pain when walking Hyperlipemia Leg cramps Lives in alf Low iron Migraine headache Neuromuscular dysfunction of bladder, unspecified Other hammer toe(s) (acquired), right foot Polyneuropathy, unspecified Post-menopausal Rash Restless legs syndrome Syncope Urinary tract infection, site not specified Wears glasses Wears partial dentures Home Medications ropinirole 0.25 mg tablet 0.25 mg PO QHS RLS 07/25/20 [History Last Taken 06/12/22] acetaminophen 650 mg tablet,extended release 1,300 mg PO Q4H PRN Pain 06/13/22 [History Last Taken 06/09/22] apixaban 5 mg tablet (Eliquis) 5 mg PO BID BLOOD THINNER 06/13/22 [History Last Taken 01/03/23] ondansetron HCl 4 mg tablet 4 mg PO Q6H PRN Nausea 06/13/22 [History Last Taken 06/13/22] Allergy/AdvReac Type Severity Reaction Status Date / Time morphine Allergy Anaphylaxis Verified 03/05/23 14:25 Penicillins [PCN] Allergy Unknown Verified 03/05/23 14:25 Family History unable to obtain Surgical History History of back surgery History of Hx laparoscopic cholecystectomy Hx of total knee arthroplasty Social History Smoking Status: Former smoker substance use type: does not use additional social history: Lives at the [facility]. Comes by transport on a cot ROS ROS Narrative GENERAL: Weak HEENT: denies headache, sinus congestion, or drainage, dysphagia RESPIRATORY: denies cough, sputum production, shortness of breath, CARDIAC: denies chest pain, palpitations, orthopnea, PND GASTROINTESTINAL: Right red blood per rectum GENITOURINARY: denies dysuria, urgency, frequency, heamaturia EXTREMITY: denies swelling MUSCULOSKELETAL: denies current joint pain or tenderness NEUROLOGIC: denies focal numbness, weakness, tingling HEMATOLOGIC: denies easy bruising and/or hemorrhage INTEGUMENT: denies rashes PSYCHIATRIC: denies suicidal or homicidal ideation Vital Signs Vital Signs Vital Signs: 08/06/23 06:32 08/06/23 06:34 08/06/23 07:29 Temperature 97.6 F L Temperature Source Temporal Pulse Rate 102 H 92 Respiratory Rate 16 16 Respiratory Pattern Normal Blood Pressure 81/63 L 98/54 L Blood Pressure Mean 69 68 Pulse Ox 95 97 Oxygen Delivery Method Room Air Oxygen Flow Rate (L/min) 08/06/23 10:21 08/06/23 10:23 08/06/23 11:14 Temperature 96.2 F L Temperature Source Temporal Pulse Rate 92 92 88 Respiratory Rate 16 16 18 Respiratory Pattern Blood Pressure 83/62 L 96/67 95/54 L Blood Pressure Mean 69 76 67 Pulse Ox 96 97 100 Oxygen Delivery Method Room Air Room Air Nasal Cannula Oxygen Flow Rate (L/min) 3 08/06/23 13:46 Temperature 96.5 F L Temperature Source Pulse Rate 85 Respiratory Rate 15 Respiratory Pattern Blood Pressure 91/61 Blood Pressure Mean 71 Pulse Ox 95 Oxygen Delivery Method Oxygen Flow Rate (L/min) Weight Weight: 70.3 kg Body Mass Index (BMI) 29.2 Physical Exam Narrative GENERAL: cooperative HEENT: Atraumatic; normocephalic EYES; Anicteric, Normal Conjunctiva NECK; supple, normal thyroid, RESPIRATORY: Diminished to auscultation CARDIOVASCULAR: Regular S1 S2, GI: soft, normoactive bowel sounds, : No Renal angle tenderness; EXTREMITIES: No edema, no clubbing, MUSCULOSKELETAL: no muscle wasting NEURO: Awake; no lateralizing signs. SKIN: No Rash PSYCH; Flat affect Results Lab / Micro Data 08/06/23 06:45 08/06/23 06:45 Labs: Laboratory Results - last 24 hr 08/06/23 06:45: WBC 10.1, RBC 4.03 L, Hgb 10.9 L, Hct 34.6 L, MCV 85.9, MCH 27.0 , MCHC 31.5 L, RDW Std Deviation 61.0 H, RDW Coeff of Valerie 19.7 H, Plt Count 310, MPV 11.6, Immature Gran % (Auto) 0.700, Neut % (Auto) 64.1, Lymph % (Auto) 29.8, [place] % (Auto) 5.1, Eos % (Auto) 0.1, Baso % (Auto) 0.2, Absolute Neuts (auto) 6.5, Absolute Lymphs (auto) 3.02, Nucleated RBC % 0, PT 41.8 H, INR 4.3 H*, APTT 55.8 H, Sodium 133 L, Potassium 3.8, Chloride 102, Carbon Dioxide 17.0 L, Anion Gap 14, BUN 49 H, Creatinine 2.19 H, Estim Creat Clear Calc 15.20, Est GFR (MDRD) Af Amer 28 L, Est GFR (MDRD) Non-Af 23 L, BUN/Creatinine Ratio 22.4 H , Glucose 99, Calcium 8.2 L, Total Bilirubin 0.70, Direct Bilirubin 0.19, AST 163 H, ALT 36, Alkaline Phosphatase 177 H, Troponin I High Sens 5, Total Protein 7.0, Albumin 2.2 L, Globulin 4.8 H, Lipase 16 08/06/23 07:04: Lactic Acid 1.9 08/06/23 09:42: Urine Color Red, Urine Clarity Turbid, Urine pH 7.0, Ur Specific [place] 1.015, Urine Protein 500 H, Urine Glucose (UA) Normal, Urine Ketones 50 H, Urine Occult Blood 250 H, Urine Nitrite Negative, Urine Bilirubin Negative, Urine Urobilinogen Normal, Ur Leukocyte Esterase 500 H, Urine RBC > 100 SEEN, Urine WBC >100 SEEN, Ur Squamous Epith Cells 0-5 SEEN, Urine Bacteria 0 SEEN, Urine Mucus 0 SEEN Imagaing Radiology Impression Abdomen/Pelvis CT 08/06/23 07:23 IMPRESSION: Thick-walled urinary bladder with adjacent stranding, consistent with cystitis. Bowel wall thickening in the sigmoid colon, consistent with colitis. No bowel obstruction. 5 mm stone in the left mid ureter with mild left hydroureteronephrosis. Bilateral nonobstructing staghorn renal calculi. No right ureteral stones. No right hydronephrosis. Fatty liver. Electronically Signed: James Pryor MD at 8:37 EST , Assessment & Plan Assessment/Plan (1) Acute lower gastrointestinal bleeding: (2) Acute kidney injury: PLAN: Plan An 83 F who presents with multiple comorbidities including DVT for which patient is on systemic anticoagulation with apixaban, presented with rectal bleeding. Patient symptoms started on the morning of her admission. CT of the abdomen and pelvis obtained on admission did show Thick-walled urinary bladder with adjacent stranding, consistent with cystitis. Bowel wall thickening in the sigmoid colon, consistent with colitis. 5 mm stone in the left mid ureter with mild left hydroureteronephrosis. Bilateral nonobstructing staghorn renal calculi. No right ureteral stones. 1. Acute lower GI bleed ? Secondary to colitis in the setting of systemic anticoagulation use with apixaban. Patient apixaban held on admission admitted to monitored bed patient was typed and crossmatched for 2 unit PRBC ordered H&H every 6 consult placed to GI from the ED. Patient started on ciprofloxacin as well as Flagyl 2. Acute cystitis ? Urine culture sent patient started on ciprofloxacin pending culture result 3. Hypotension ? Secondary to patient GI bleed resuscitated with IV fluids admitted to monitored bed for further management. 4. Anemia ? Secondary to acute blood loss anemia. Monitoring H&H every 6 with plans to transfuse if patient becomes symptomatic or hemoglobin falls below 7 5. Acute kidney injury ? Patient creatinine on 06/05/2023 was 0.62 creatinine on admission was 2.19 started on IV fluid with subsequent monitoring of electrolytes ordered 6. Nephrolithiasis ? Patient CT of the abdomen and pelvis demonstrated8 5 mm stone in the left mid ureter with mild left hydroureteronephrosis. Bilateral nonobstructing staghorn renal calculi. No right ureteral stones. No right hydronephrosis. Consult placed to urology from the ED 7. Restless leg syndrome ? Patient is on ropinirole plan is to continue with home dose 8. Previous history of DVT ? Patient is on apixaban held in view of her presenting complaints 9. DVT prophylaxis ? Patient already on apixaban which is held in view of her active GI bleed Time spent in the patient's overall evaluation,decision-making process, review of diagnostic data, adjustment of management, discussion with other providers, nursing nursing and ancillary staff involved in patient's care documentation, 75 Minutes Advance planning; did discuss with the patient regarding advanced directives as well as CODE STATUS. Did explain the various scenarios involved ( FULL CODE, DNR CCA, DNR CCA with no intubation, and DNR CC and what each meant) patient elected to be DNR CCA no intubation. Order was placed. Time spent on di scussion 18 minutes. Charges/Coding Visit Charges Inpatient E&M: 91672 Init Hosp L3 Procedures Hospitalists Procedures: 86782 Advncd Care Plan 30 Min
[2023-08-06 16:01] LABS: Hematocrit 27.8 % (37-47); Hemoglobin 8.7 g/dL (12.0-15.0)
--- NOTE | 2023-08-06 16:22 | EX.PCM.CON.G ---
HPI Consult Data Date of Consult: 08/06/23 HPI Narrative Reason for Consultation: GI bleeding HPI Narrative: DEMI MORTON, is a 83 F who presents with rectal bleeding that has been getting worse over the past couple days. She does take Eliquis 5 twice daily. Patient states she is having red rectal bleeding. Patient states it has been constant. Patient states it is gradually gotten worse. halfway states that the patient had a low blood pressure of 70/30 today. Patient states she does feel weak. Patient has had a prior stroke with right-sided weakness. Patient denies any chest pain or shortness of breath. Patient denies any nausea or vomiting. Patient denies abdominal pain. Patient also admits to some hematuria. CT of the abdomen and pelvis obtained on admission did show Thick-walled urinary bladder with adjacent stranding, consistent with cystitis. Bowel wall thickening in the sigmoid colon, consistent with colitis. 5 mm stone in the left mid ureter with mild left hydroureteronephrosis. Bilateral nonobstructing staghorn renal calculi. No right ureteral stones. No right hydronephrosis. [facility]LY [facility] Medical History Arthritis Back pain Cataracts, bilateral Chronic kidney disease CVA (cerebral vascular accident) DVT (deep venous thrombosis) Former smoker GERD (gastroesophageal reflux disease) Heartburn History of diverticulitis History of edema History of hiatal hernia History of IBS History of pain when walking Hyperlipemia Leg cramps Lives in [facility] Low iron Migraine headache Neuromuscular dysfunction of bladder, unspecified Other hammer toe(s) (acquired), right foot Polyneuropathy, unspecified Post-menopausal Rash Restless legs syndrome Syncope Urinary tract infection, site not specified Wears glasses Wears partial dentures Home Medications ropinirole 0.25 mg tablet 0.25 mg PO QHS RLS 07/25/20 [History Last Taken 06/12/22] acetaminophen 650 mg tablet,extended release 1,300 mg PO Q4H PRN Pain 06/13/22 [History Last Taken 06/09/22] apixaban 5 mg tablet (Eliquis) 5 mg PO BID BLOOD THINNER 06/13/22 [History Last Taken 01/03/23] ondansetron HCl 4 mg tablet 4 mg PO Q6H PRN Nausea 06/13/22 [History Last Taken 06/13/22] Allergy/AdvReac Type Severity Reaction Status Date / Time morphine Allergy Anaphylaxis Verified 03/05/23 14:25 Penicillins [PCN] Allergy Unknown Verified 03/05/23 14:25 Family History unable to obtain Surgical History History of back surgery History of Hx laparoscopic cholecystectomy Hx of total knee arthroplasty Social History Smoking Status: Former smoker substance use type: does not use additional social history: Lives at the [facility]. Comes by transport on a cot ROS ROS Narrative GENERAL: Weak HEENT: denies headache, sinus congestion, or drainage, dysphagia RESPIRATORY: denies cough, sputum production, shortness of breath, CARDIAC: denies chest pain, palpitations, orthopnea, PND GASTROINTESTINAL: Right red blood per rectum GENITOURINARY: denies dysuria, urgency, frequency, heamaturia EXTREMITY: denies swelling MUSCULOSKELETAL: denies current joint pain or tenderness NEUROLOGIC: denies focal numbness, weakness, tingling HEMATOLOGIC: denies easy bruising and/or hemorrhage INTEGUMENT: denies rashes PSYCHIATRIC: denies suicidal or homicidal ideation Physical Exam Narrative GENERAL: cooperative HEENT: Atraumatic; normocephalic EYES; Anicteric, Normal Conjunctiva NECK; supple, normal thyroid, RESPIRATORY: Diminished to auscultation CARDIOVASCULAR: Regular S1 S2, GI: soft, normoactive bowel sounds, : No Renal angle tenderness; EXTREMITIES: No edema, no clubbing, MUSCULOSKELETAL: no muscle wasting NEURO: Awake; no lateralizing signs. SKIN: No Rash PSYCH; Flat affect Lab / Micro Data 08/06/23 15:50 08/06/23 06:45 Labs: Laboratory Results - last 24 hr 08/06/23 06:45: WBC 10.1, RBC 4.03 L, Hgb 10.9 L, Hct 34.6 L, MCV 85.9, MCH 27.0, MCHC 31.5 L, RDW Std Deviation 61.0 H, RDW Coeff of Valerie 19.7 H, Plt Count 310, MPV 11.6, Immature Gran % (Auto) 0.700, Neut % (Auto) 64.1, Lymph % (Auto) 29.8, Early % (Auto) 5.1, Eos % (Auto) 0.1, Baso % (Auto) 0.2, Absolute Neuts (auto) 6.5, Absolute Lymphs (auto) 3.02, Nucleated RBC % 0, PT 41.8 H, INR 4.3 H*, APTT 55.8 H, Sodium 133 L, Potassium 3.8, Chloride 102, Carbon Dioxide 17.0 L, Anion Gap 14, BUN 49 H, Creatinine 2.19 H, Estim Creat Clear Calc 15.20, Est GFR (MDRD) Af Amer 28 L, Est GFR (MDRD) Non-Af 23 L, BUN/Creatinine Ratio 22.4 H, Glucose 99, Calcium 8.2 L, Total Bilirubin 0.70, Direct Bilirubin 0.19, AST 163 H, ALT 36, Alkaline Phosphatase 177 H, Troponin I High Sens 5, Total Protein 7.0, Albumin 2.2 L, Globulin 4.8 H, Lipase 16 08/06/23 07:04: Lactic Acid 1.9 08/06/23 09:42: Urine Color Red, Urine Clarity Turbid, Urine pH 7.0, Ur Specific [place] 1.015, Urine Protein 500 H, Urine Glucose (UA) Normal, Urine Ketones 50 H, Urine Occult Blood 250 H, Urine Nitrite Negative, Urine Bilirubin Negative, Urine Urobilinogen Normal, Ur Leukocyte Esterase 500 H, Urine RBC > 100 SEEN, Urine WBC >100 SEEN, Ur Squamous Epith Cells 0-5 SEEN, Urine Bacteria 0 SEEN, Urine Mucus 0 SEEN 08/06/23 15:50: Hgb 8.7 L, Hct 27.8 L, Crossmatch See Detail Imagaing Radiology Impression Abdomen/Pelvis CT 08/06/23 07:23 IMPRESSION: Thick-walled urinary bladder with adjacent stranding, consistent with cystitis. Bowel wall thickening in the sigmoid colon, consistent with colitis. No bowel obstruction. 5 mm stone in the left mid ureter with mild left hydroureteronephrosis. Bilateral nonobstructing staghorn renal calculi. No right ureteral stones. No right hydronephrosis. Fatty liver. Electronically Signed: James Pryor MD at 8:37 EST , Assessment & Plan Assessment/Plan (1) Diarrhea: QUALIFIERS: Diarrhea type: unspecified type Qualified Code(s): R19.7 - Diarrhea, unspecified (2) Acute GI bleeding: PLAN: Plan 83 F who presents with multiple comorbidities including DVT for which patient is on systemic anticoagulation with apixaban, presented with rectal bleeding. -Acute diarrhea, acute C. difficile negative, enteric panel negative -Acute intermittent episode of hematochezia, stool for occult blood is positive in the ED CT scan does show ischemic colitis. She does have a history of ischemic colitis. I am okay with her antibiotics. I think that she should be treated with vitamin K 5 mg IV. I am not sure if your hypotension is secondary to GI bleed in the setting of urinary tract infection which could lead to urosepsis. -Admitting hemoglobin is 8.7, hold Eliquis -Acute UTI, with hematochezia Started on Antibiotics Follow-up on urine culture -H/o DVT, diagnosed on 06/06/2022, on Eliquis -History of CVA with right hemiplegia, complicates care and prognosis Charges/Coding Visit Charges Inpatient E&M: 15151 Init Hosp L3
[2023-08-06] MEDS: Phytonadione (Vit K) 5 MG in 0.9% Normal Saline (50mL Bag) 50 ML 150 MG IV (17:07)
[2023-08-06] MEDS: Acetaminophen 325 MG Tablet 650 MG PO (19:56)
[2023-08-06] MEDS: MELATONIN 3 MG TABLET PO (19:56)
[2023-08-06] MEDS: Pramipexole Di-HCl 0.125 MG Tablet PO (20:55)
[2023-08-06] MEDS: Pantoprazole Sodium 40 MG in 0.9% Normal Saline (100mL MB+) 100 ML 330 MG IV (20:57)
[2023-08-06] MEDS: MENTHOL 226.8 GM JAR 1 APPLIC TOPICAL (21:25)
[2023-08-06] MEDS: 0.9% Normal Saline (500mL Bag) 500 ML 999 ML IV (23:49)
[2023-08-07] VITALS (28 sets, daily range): BP systolic 75–96; BP diastolic 43–71; PULSE 68–84; RESP 12–20; TEMP 35.8–36.4; O2SAT 94–100; BMI 30.7
[2023-08-07] MEDS: 0.9% Normal Saline (1000mL) 1,000 ML 150 ML IV (02:14)
[2023-08-07 02:27] LABS: Hematocrit 25.1 % (37-47); Hemoglobin 7.9 g/dL (12.0-15.0)
[2023-08-07] MEDS: Albumin Human 25% (100 mL) 25 GM/100 ML BAG IV (03:53)
[2023-08-07] MEDS: MENTHOL 226.8 GM JAR 1 APPLIC TOPICAL ×2 (04:00→12:00)
[2023-08-07] MEDS: Acetaminophen 325 MG Tablet 650 MG PO (04:04)
[2023-08-07 04:07] LABS: Absolute Lymphocyte Count 2.17 X10^3/uL (0.83-4.51); Absolute Neutrophil Count 4.9 X10^3/uL (2.0-7.7); Basophil# 0.01 X10^3/uL; Basophil% 0.1 % (0-1); Eosinophil# 0.02 X10^3/uL; Eosinophils% 0.3 % (0-5); Hematocrit 25.2 % (37-47); Hemoglobin 7.8 g/dL (12.0-15.0); Lymphocyte # 2.17 X10^3/ul (0.83-4.51); Lymphocyte % 28.4 % (19-41); Mean Corpuscular Hgb 27.3 pg (27.0-32.0); Mean Corpuscular Volume 88.1 fL (81-99); Mean Platelet Vol. 10.6 fl (6.2-12.0); Monocyte# 0.46 X10^3/uL; NRBC Flagged by Analyzer 0 % (0-5); Neutrophil % 64.2 % (47-70); Platelet Count 214 K/mm3 (150-450); RBC Distribution Width CV 19.9 % (11.6-14.6); RBC Distribution Width SD 63.8 fl (35.1-43.9); Red Blood Count 2.86 M/mm3 (4.2-5.4); White Blood Count 7.6 K/mm3 (4.4-11.0)
[2023-08-07] MEDS: Menthol/Lanolin/Calamine/Znox 113 GM Tube 1 APPLIC TOPICAL ×2 (05:25→14:17)
[2023-08-07] MEDS: metroNIDAZOLE 500 MG/100 ML BAG 100 MG IV ×3 (06:24→20:58)
[2023-08-07 07:07] LABS: AST(SGOT) 79 U/L (15-37); Alanine Aminotransfer ALT/SGPT 21 U/L (13-56); Albumin, Serum 2.3 g/dL (3.2-5.0); Alkaline Phosphatase 104 U/L (45-117); Anion Gap 12 (5-15); BUN 32 mg/dL (7-18); BUN/Creat Ratio 28.8 RATIO (10-20); Bilirubin, Direct 0.23 mg/dL (0.00-0.30); Calcium,Total 6.2 mg/dL (8.5-10.1); Chloride 123 mmol/L (98-107); Creatinine, Serum 1.11 mg/dL (0.55-1.02); EST Glomerular Filtration Rate 50 mL/min (>60); Est Glom Filt Rate - Afr Amer 61 mL/min (>60); Estimated Creatinine Clearance 29.99 ml/min; Globulin 2.6 g/dL (2.2-4.2); Glucose 62 mg/dL (74-106); Magnesium 1.8 mg/dL (1.6-2.6); Phosphorus 1.3 mg/dL (2.5-4.9); Potassium 2.4 mmol/L (3.5-5.1); Protein, Total 4.9 g/dL (6.4-8.2); Sodium Level 146 mmol/L (136-145)
--- NOTE | 2023-08-07 07:30 | PCM.PN.HOSP ---
Reason for Visit Reason for Visit: Diagnoses Gastrointestinal hemorrhage, unspecified (08/06/23) Acute kidney failure, unspecified (08/06/23) Diarrhea, unspecified (08/06/23) Subjective Subjective Patient seen per nursing staff patient has been experiencing hematuria. Plan is for patient to undergo cystoscopy on 08/08/2023. Diagnostic data reviewed single for potassium of 2.4 additional potassium replacement given Objective Data Objective Data Vital Signs: Vital Signs Temp Pulse Resp BP Pulse Ox O2 Del Method O2 Flow Rate 97.6 F L 75 14 81/46 L 100 Room Air 3 08/07/23 04:00 08/07/23 07:00 08/07/23 07:00 08/07/23 07:00 08/07/23 07:00 08/07/23 07:00 08/06/23 11:14 Oxygen Flow Rate (L/min) 3 Oxygen Delivery Method Room Air Weight: 73.8 kg Body Mass Index (BMI) 30.7 Intake & Output: Intake and Output for Last 24 Hours 08/05/23 08/06/23 08/07/23 23:59 23:59 23:59 Intake Total 5188.0 / 5188.0 1307.5 / 1307.5 Output Total 200 / 200 Balance 5188.0 / 5188.0 1107.5 / 1107.5 Lab / Micro Data 08/07/23 04:00 08/07/23 06:20 Labs: Laboratory Results - last 24 hr 08/06/23 06:45: PT 41.8 H, INR 4.3 H*, APTT 55.8 H, Sodium 133 L, Potassium 3.8, Chloride 102, Carbon Dioxide 17.0 L, Anion Gap 14, BUN 49 H, Creatinine 2.19 H, Estim Creat Clear Calc 15.20, Est GFR (MDRD) Af Amer 28 L, Est GFR (MDRD) Non-Af 23 L, BUN/Creatinine Ratio 22.4 H, Glucose 99, Calcium 8.2 L, Total Bilirubin 0.70, Direct Bilirubin 0.19, AST 163 H, ALT 36, Alkaline Phosphatase 177 H, Troponin I High Sens 5, Total Protein 7.0, Albumin 2.2 L, Globulin 4.8 H, Lipase 16 08/06/23 07:04: Lactic Acid 1.9 08/06/23 09:42: Urine Color Red, Urine Clarity Turbid, Urine pH 7.0, Ur Specific [place] 1.015, Urine Protein 500 H, Urine Glucose (UA) Normal, Urine Ketones 50 H, Urine Occult Blood 250 H, Urine Nitrite Negative, Urine Bilirubin Negative, Urine Urobilinogen Normal, Ur Leukocyte Esterase 500 H, Urine RBC > 100 SEEN, Urine WBC >100 SEEN, Ur Squamous Epith Cells 0-5 SEEN, Urine Bacteria 0 SEEN, Urine Mucus 0 SEEN 08/06/23 15:50: Hgb 8.7 L, Hct 27.8 L, Blood Type O POSITIVE, Antibody Screen NEGATIVE, Crossmatch See Detail 08/07/23 02:20: Hgb 7.9 L, Hct 25.1 L 08/07/23 04:00: WBC 7.6, RBC 2.86 L, Hgb 7.8 L, Hct 25.2 L, MCV 88.1, MCH 27.3, MCHC 31.0 L, RDW Std Deviation 63.8 H, RDW Coeff of Valerie 19.9 H, Plt Count 214, MPV 10.6, Immature Gran % (Auto) 1.000 H, Neut % (Auto) 64.2, Lymph % (Auto) 28.4, Reynolds % (Auto) 6.0, Eos % (Auto) 0.3, Baso % (Auto) 0.1, Absolute Neuts (auto) 4.9, Absolute Lymphs (auto) 2.17, Nucleated RBC % 0, Sodium Cancelled, Potassium Cancelled, Chloride Cancelled, Carbon Dioxide Cancelled, Anion Gap Cancelled, BUN Cancelled, Creatinine Cancelled, Estim Creat Clear Calc Cancelled, Est GFR (MDRD) Af Amer Cancelled, Est GFR (MDRD) Non-Af Cancelled, BUN/Creatinine Ratio Cancelled, Glucose Cancelled, Calcium Cancelled, Phosphorus Cancelled, Magnesium Cancelled, Total Bilirubin Cancelled, Direct Bilirubin Cancelled, AST Cancelled, ALT Cancelled, Alkaline Phosphatase Cancelled, Total Protein Cancelled, Albumin Cancelled, Globulin Cancelled 08/07/23 06:20: Sodium 146 H, Potassium 2.4 L*, Chloride 123 H, Carbon Dioxide 11.0 L, Anion Gap 12, BUN 32 H, Creatinine 1.11 H, Estim Creat Clear Calc 29.99, Est GFR (MDRD) Af Amer 61, Est GFR (MDRD) Non-Af 50 L, BUN/Creatinine Ratio 28.8 H, Glucose 62 L, Calcium 6.2 L*, Phosphorus 1.3 L, Magnesium 1.8, Total Bilirubin 0.60, Direct Bilirubin 0.23, AST 79 H, ALT 21, Alkaline Phosphatase 104, Total Protein 4.9 L, Albumin 2.3 L, Globulin 2.6 Radiography Diagnostic Testing: Radiology Impression Abdomen/Pelvis CT 08/06/23 07:23 IMPRESSION: Thick-walled urinary bladder with adjacent stranding, consistent with cystitis. Bowel wall thickening in the sigmoid colon, consistent with colitis. No bowel obstruction. 5 mm stone in the left mid ureter with mild left hydroureteronephrosis. Bilateral nonobstructing staghorn renal calculi. No right ureteral stones. No right hydronephrosis. Fatty liver. Electronically Signed: James Pryor MD at 8:37 EST Reading Location ID and State: [facility] / [place] Tel , Service support , Physical Exam Narrative GENERAL: cooperative HEENT: Atraumatic; normocephalic EYES; Anicteric, Normal Conjunctiva NECK; supple, normal thyroid, RESPIRATORY: Diminished to auscultation CARDIOVASCULAR: Regular S1 S2, GI: soft, normoactive bowel sounds, : No Renal angle tenderness; EXTREMITIES: No edema, no clubbing, MUSCULOSKELETAL: no muscle wasting NEURO: Awake; no lateralizing signs. SKIN: No Rash PSYCH; Flat affect Assessment & Plan Assessment/Plan (1) Acute lower gastrointestinal bleeding: (2) Acute kidney injury: PLAN: Plan An 83 F who presents with multiple comorbidities including DVT for which patient is on systemic anticoagulation with apixaban, presented with rectal bleeding. Patient symptoms started on the morning of her admission. CT of the abdomen and pelvis obtained on admission did show Thick-walled urinary bladder with adjacent stranding, consistent with cystitis. Bowel wall thickening in the sigmoid colon, consistent with colitis. 5 mm stone in the left mid ureter with mild left hydroureteronephrosis. Bilateral nonobstructing staghorn renal calculi. No right ureteral stones. 1. Acute lower GI bleed ? Secondary to colitis in the setting of systemic anticoagulation use with apixaban. Patient apixaban held on admission admitted to monitored bed patient was typed and crossmatched for 2 unit PRBC ordered H&H every 6 consult placed to GI from the ED. Patient started on ciprofloxacin as well as Flagyl ? 08/07/2023 patient remains on antibiotic therapy was seen in consultation by GI noted recommendations reviewed 2. Acute cystitis ? Urine culture sent patient started on ciprofloxacin pending culture result 3. Hypotension ? Secondary to patient GI bleed resuscitated with IV fluids admitted to monitored bed for further management. 4. Anemia ? Secondary to acute blood loss anemia. Monitoring H&H every 6 with plans to transfuse if patient becomes symptomatic or hemoglobin falls below 7 5. Acute kidney injury ? Patient creatinine on 06/05/2023 was 0.62 creatinine on admission was 2.19 started on IV fluid with subsequent monitoring of electrolytes ordered 6. Nephrolithiasis ? Patient CT of the abdomen and pelvis demonstrated8 5 mm stone in the left mid ureter with mild left hydroureteronephrosis. Bilateral nonobstructing staghorn renal calculi. No right ureteral stones. No right hydronephrosis. Consult placed to urology from the ED 7. Hematuria ? Plan is for patient to undergo cystoscopy on 08/08/2023 patient is systemic anticoagulation with Eliquis on hold 8. Hypokalemia ? Corrected per protocol repeat labs ordered for monitor 9. Restless leg syndrome ? Patient is on ropinirole plan is to continue with home dose 10. Previous history of DVT ? Patient is on apixaban held in view of her presenting complaints 11. DVT prophylaxis ? Patient already on apixaban which is held in view of her active GI bleed Time spent in the patient's overall evaluation,decision-making process, review of diagnostic data, adjustment of management, discussion with other providers, nursing nursing and ancillary staff involved in patient's care documentation, 50 Minutes Charges/Coding Visit Charges Inpatient E&M: 89464 [facility] Hosp L3
--- NOTE | 2023-08-07 07:38 | PCM.CONS.U ---
Assessment & Plan Assessment/Plan (1) Acute kidney injury: (2) Calculus of left ureter: PLAN: Cystoscopy and left stent placement tomorrow in the operating room HPI Consult Data Date of Consult: 08/07/23 HPI Narrative Reason for Consultation: Stone in the left ureter HPI Narrative: DEMI MORTON, is a 83 F who presents with hypotension and rectal bleeding she does have a small stone in the mid left ureter mild left hydronephrosis she has bilateral stones in both kidneys nonobstructive she is in the ICU because of her low blood pressure, will add on for cystoscopy and left stent tomorrow to alleviate obstruction she is on broad-spectrum antibiotics for possible urosepsis. [facility] Medical History Arthritis Back pain Cataracts, bilateral Chronic kidney disease CVA (cerebral vascular accident) DVT (deep venous thrombosis) Former smoker GERD (gastroesophageal reflux disease) Heartburn History of diverticulitis History of edema History of hiatal hernia History of IBS History of pain when walking Hyperlipemia Leg cramps Lives in [facility] Low iron Migraine headache Neuromuscular dysfunction of bladder, unspecified Other hammer toe(s) (acquired), right foot Polyneuropathy, unspecified Post-menopausal Rash Restless legs syndrome Syncope Urinary tract infection, site not specified Wears glasses Wears partial dentures Home Medications ropinirole 0.25 mg tablet 0.25 mg PO QHS RLS 07/25/20 [History Last Taken 06/12/22] acetaminophen 650 mg tablet,extended release 1,300 mg PO Q4H PRN Pain 06/13/22 [History Last Taken 06/09/22] apixaban 5 mg tablet (Eliquis) 5 mg PO BID BLOOD THINNER 06/13/22 [History Last Taken 01/03/23] ondansetron HCl 4 mg tablet 4 mg PO Q6H PRN Nausea 06/13/22 [History Last Taken 06/13/22] Allergy/AdvReac Type Severity Reaction Status Date / Time morphine Allergy Anaphylaxis Verified 03/05/23 14:25 Penicillins [PCN] Allergy Unknown Verified 03/05/23 14:25 Family History unable to obtain Surgical History History of back surgery History of Hx laparoscopic cholecystectomy Hx of total knee arthroplasty Social History Smoking Status: Former smoker substance use type: does not use additional social history: Lives at the [facility]. Comes by transport on a cot ROS Constitutional Constitutional: Denies chills, fever(s) or malaise Eyes Eyes: Denies blurry vision or change in vision ENT HEENT: Reports none Cardiovascular Cardiovascular: Denies chest pain or palpitations Respiratory/Chest Respiratory/Chest: Denies cough or shortness of breath with exertion Gastrointestinal Gastrointestinal: Denies abdominal pain, constipation or diarrhea Musculoskeletal Musculoskeletal: Denies back pain, joint stiffness or joint swelling Integumentary Integumentary: Denies dry skin, jaundice, lesions or rash Neurologic Neurologic: Denies confusion, syncope or weakness Psychiatric Psychiatric: Reports none; Denies anxiety or depression Endocrine Endocrinology: Denies excessive sweating, fatigue or flushing Hematologic/Lymphatic Hematologic/Lymphatic: Denies anemia, easy bleeding or easy bruising Medical Records Data Attestation: I reviewed the patient's medical records Lab / Micro Data 08/07/23 04:00 08/07/23 06:20 Labs: Laboratory Results - last 24 hr 08/06/23 06:45: PT 41.8 H, INR 4.3 H*, APTT 55.8 H, Sodium 133 L, Potassium 3.8, Chloride 102, Carbon Dioxide 17.0 L, Anion Gap 14, BUN 49 H, Creatinine 2.19 H, Estim Creat Clear Calc 15.20, Est GFR (MDRD) Af Amer 28 L, Est GFR (MDRD) Non-Af 23 L, BUN/Creatinine Ratio 22.4 H, Glucose 99, Calcium 8.2 L, Total Bilirubin 0.70, Direct Bilirubin 0.19, AST 163 H, ALT 36, Alkaline Phosphatase 177 H, Troponin I High Sens 5, Total Protein 7.0, Albumin 2.2 L, Globulin 4.8 H, Lipase 16 08/06/23 07:04: Lactic Acid 1.9 08/06/23 09:42: Urine Color Red, Urine Clarity Turbid, Urine pH 7.0, Ur Specific [place] 1.015, Urine Protein 500 H, Urine Glucose (UA) Normal, Urine Ketones 50 H, Urine Occult Blood 250 H, Urine Nitrite Negative, Urine Bilirubin Negative, Urine Urobilinogen Normal, Ur Leukocyte Esterase 500 H, Urine RBC > 100 SEEN, Urine WBC >100 SEEN, Ur Squamous Epith Cells 0-5 SEEN, Urine Bacteria 0 SEEN, Urine Mucus 0 SEEN 08/06/23 15:50: Hgb 8.7 L, Hct 27.8 L, Blood Type O POSITIVE, Antibody Screen NEGATIVE, Crossmatch See Detail 08/07/23 02:20: Hgb 7.9 L, Hct 25.1 L 08/07/23 04:00: WBC 7.6, RBC 2.86 L, Hgb 7.8 L, Hct 25.2 L, MCV 88.1, MCH 27.3, MCHC 31.0 L, RDW Std Deviation 63.8 H, RDW Coeff of Valerie 19.9 H, Plt Count 214, MPV 10.6, Immature Gran % (Auto) 1.000 H, Neut % (Auto) 64.2, Lymph % (Auto) 28.4, [place] % (Auto) 6.0, Eos % (Auto) 0.3, Baso % (Auto) 0.1, Absolute Neuts (auto) 4.9, Absolute Lymphs (auto) 2.17, Nucleated RBC % 0, Sodium Cancelled, Potassium Cancelled, Chloride Cancelled, Carbon Dioxide Cancelled, Anion Gap Cancelled, BUN Cancelled, Creatinine Cancelled, Estim Creat Clear Calc Cancelled, Est GFR (MDRD) Af Amer Cancelled, Est GFR (MDRD) Non-Af Cancelled, BUN/Creatinine Ratio Cancelled, Glucose Cancelled, Calcium Cancelled, Phosphorus Cancelled, Magnesium Cancelled, Total Bilirubin Cancelled, Direct Bilirubin Cancelled, AST Cancelled, ALT Cancelled, Alkaline Phosphatase Cancelled, Total Protein Cancelled, Albumin Cancelled, Globulin Cancelled 08/07/23 06:20: Sodium 146 H, Potassium 2.4 L*, Chloride 123 H, Carbon Dioxide 11.0 L, Anion Gap 12, BUN 32 H, Creatinine 1.11 H, Estim Creat Clear Calc 29.99, Est GFR (MDRD) Af Amer 61, Est GFR (MDRD) Non-Af 50 L, BUN/Creatinine Ratio 28.8 H, Glucose 62 L, Calcium 6.2 L*, Phosphorus 1.3 L, Magnesium 1.8, Total Bilirubin 0.60, Direct Bilirubin 0.23, AST 79 H, ALT 21, Alkaline Phosphatase 104, Total Protein 4.9 L, Albumin 2.3 L, Globulin 2.6 Imagaing Radiology Impression Abdomen/Pelvis CT 08/06/23 07:23 IMPRESSION: Thick-walled urinary bladder with adjacent stranding, consistent with cystitis. Bowel wall thickening in the sigmoid colon, consistent with colitis. No bowel obstruction. 5 mm stone in the left mid ureter with mild left hydroureteronephrosis. Bilateral nonobstructing staghorn renal calculi. No right ureteral stones. No right hydronephrosis. Fatty liver. Electronically Signed: James Pryor MD at 8:37 EST ,
[2023-08-07] MEDS: Ciprofloxacin 400 MG/200 ML BAG 200 MG IV (09:04)
[2023-08-07 10:00] LABS: Hematocrit 22.3 % (37-47); Hemoglobin 6.9 g/dL (12.0-15.0)
[2023-08-07] MEDS: Pantoprazole Sodium 40 MG in 0.9% Normal Saline (100mL MB+) 100 ML 330 MG IV ×2 (10:23→21:59)
[2023-08-07] MEDS: Potassium Chloride Oral Tablet 20 MEQ 40 MEQ PO (10:28)
[2023-08-07] MEDS: Potassium Chloride 10mEq/100mL 10 MEQ/100 ML IV.SOLN. 100 MEQ IV BOLUS ×4 (11:01→13:35)
--- NOTE | 2023-08-07 12:59 | CASEMGMT ---
SW went to patient's room to confirm her d/c plan is to return to [facility]. Patient was sleeping. SW did not want to wake patient so SW will check back with patient. Rut MANZO
--- NOTE | 2023-08-07 19:41 | PN.GI_ITS ---
Subjective Subjective Patient still remains hypotensive. She received 1 unit packed red blood cells. She still having a lot of hematuria. She is scheduled to have cystoscopy tomorrow 4:30 PM. Objective Data Objective Data Vital Signs: Vital Signs Temp Pulse Resp BP Pulse Ox O2 Del Method O2 Flow Rate 96.5 F L 74 18 88/65 L 94 Room Air 3 08/07/23 19:00 08/07/23 19:00 08/07/23 19:00 08/07/23 19:00 08/07/23 19:00 08/07/23 19:00 08/06/23 11:14 Oxygen Flow Rate (L/min) 3 Oxygen Delivery Method Room Air Weight: 162 lb 11.218 oz Body Mass Index (BMI) 30.7 Intake & Output: Intake and Output for Last 24 Hours 08/05/23 08/06/23 08/07/23 23:59 23:59 23:59 Intake Total 5188.0 / 5188.0 3175.17 / 3175.17 Output Total 200 / 200 Balance 5188.0 / 5188.0 2975.17 / 2975.17 Lab / Micro Data 08/07/23 09:45 08/07/23 06:20 Labs: Laboratory Results - last 24 hr 08/06/23 15:50: Blood Type O POSITIVE, Antibody Screen NEGATIVE, Crossmatch See Detail 08/06/23 15:50: Crossmatch See Detail 08/07/23 02:20: Hgb 7.9 L, Hct 25.1 L 08/07/23 04:00: WBC 7.6, RBC 2.86 L, Hgb 7.8 L, Hct 25.2 L, MCV 88.1, MCH 27.3, MCHC 31.0 L, RDW Std Deviation 63.8 H, RDW Coeff of Valerie 19.9 H, Plt Count 214, MPV 10.6, Immature Gran % (Auto) 1.000 H, Neut % (Auto) 64.2, Lymph % (Auto) 28 .4, [place] % (Auto) 6.0, Eos % (Auto) 0.3, Baso % (Auto) 0.1, Absolute Neuts (auto) 4.9, Absolute Lymphs (auto) 2.17, Nucleated RBC % 0, Sodium Cancelled, Potassium Cancelled, Chloride Cancelled, Carbon Dioxide Cancelled, Anion Gap Cancelled, BUN Cancelled, Creatinine Cancelled, Estim Creat Clear Calc Cancelled, Est GFR (MDRD) Af Amer Cancelled, Est GFR (MDRD) Non-Af Cancelled, BUN/Creatinine Ratio Cancelled, Glucose Cancelled, Calcium Cancelled, Phosphorus Cancelled, Magnesium Cancelled, Total Bilirubin Cancelled, Direct Bilirubin Cancelled, AST Cancelled, ALT Cancelled, Alkaline Phosphatase Cancelled, Total Protein Cancelled, Albumin Cancelled, Globulin Cancelled 08/07/23 06:20: Sodium 146 H, Potassium 2.4 L*, Chloride 123 H, Carbon Dioxide 11.0 L, Anion Gap 12, BUN 32 H, Creatinine 1.11 H, Estim Creat Clear Calc 29.99, Est GFR (MDRD) Af Amer 61, Est GFR (MDRD) Non-Af 50 L, BUN/Creatinine Ratio 28.8 H, Glucose 62 L, Calcium 6.2 L*, Phosphorus 1.3 L, Magnesium 1.8, Total Bilirubin 0.60, Direct Bilirubin 0.23, AST 79 H, ALT 21, Alkaline Phosphatase 104, Total Protein 4.9 L, Albumin 2.3 L, Globulin 2.6 08/07/23 09:45: Hgb 6.9 L, Hct 22.3 L Physical Exam Narrative GENERAL: cooperative HEENT: Atraumatic; normocephalic EYES; Anicteric, Normal Conjunctiva NECK; supple, normal thyroid, RESPIRATORY: Diminished to auscultation CARDIOVASCULAR: Regular S1 S2, GI: soft, normoactive bowel sounds, : No Renal angle tenderness; EXTREMITIES: No edema, no clubbing, MUSCULOSKELETAL: no muscle wasting NEURO: Awake; no lateralizing signs. SKIN: No Rash PSYCH; Flat affect Assessment & Plan Assessment/Plan (1) Diarrhea: QUALIFIERS: Diarrhea type: unspecified type Qualified Code(s): R19.7 - Diarrhea, unspecified (2) Acute GI bleeding: PLAN: Plan 83 F who presents with multiple comorbidities including DVT for which patient is on systemic anticoagulation with apixaban, presented with rectal bleeding. -Acute diarrhea, acute C. difficile negative, enteric panel negative -Acute intermittent episode of hematochezia, stool for occult blood is positive in the ED CT scan does show ischemic colitis. She does have a history of ischemic colitis. I am okay with her antibiotics. I think that she should be treated with vitamin K 5 mg IV. I am not sure if your hypotension is secondary to GI b leed in the setting of urinary tract infection which could lead to urosepsis. 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 She received transfusion of packed red blood cells. I ordered 2 more units of packed red blood cells due to hypotension. She will be scheduled for EGD tomorrow. I will put her on PPI drip and octreotide drip. Repeat CMP after patient has finished getting potassium replacement for potassium of 2.4.. Charges/Coding Visit Charges Inpatient E&M: 12402 Subs Hosp L3
[2023-08-08] VITALS (53 sets, daily range): BP systolic 51–125; BP diastolic 30–74; PULSE 75–136; RESP 12–29; TEMP 35.6–36.1; O2SAT 93–100; BMI 31.0
[2023-08-08] MEDS: 0.9% Normal Saline (1000mL) 1,000 ML 150 ML IV (01:12)
[2023-08-08] MEDS: MENTHOL 226.8 GM JAR 1 APPLIC TOPICAL (01:12)
[2023-08-08 03:49] LABS: Absolute Lymphocyte Count 0.34 X10^3/uL (0.83-4.51); Absolute Neutrophil Count 3.9 X10^3/uL (2.0-7.7); Basophil# 0.02 X10^3/uL; Basophil% 0.5 % (0-1); Eosinophil# 0.01 X10^3/uL; Eosinophils% 0.2 % (0-5); Hematocrit 38.8 % (37-47); Hemoglobin 12.6 g/dL (12.0-15.0); Lymphocyte # 0.34 X10^3/ul (0.83-4.51); Lymphocyte % 7.9 % (19-41); Mean Corp Hgb Conc 32.5 g/dL (32-36); Mean Corpuscular Hgb 27.2 pg (27.0-32.0); Mean Corpuscular Volume 83.6 fL (81-99); Mean Platelet Vol. 10.4 fl (6.2-12.0); Monocyte# 0.01 X10^3/uL; Monocyte% 0.2 % (0-10); NRBC Flagged by Analyzer 0 % (0-5); Neutrophil # 3.87 X10^3/uL (2.7-7.7); Neutrophil % 89.4 % (47-70); POSITIVE DIFFERENTIAL YES; POSITIVE MORPHOLOGY YES; Platelet Count 158 K/mm3 (150-450); RBC Distribution Width CV 18.6 % (11.6-14.6); RBC Distribution Width SD 54.9 fl (35.1-43.9); Red Blood Count 4.64 M/mm3 (4.2-5.4); White Blood Count 4.3 K/mm3 (4.4-11.0)
[2023-08-08 04:05] LABS: Differential Indicated SCAN CRITERIA MET
[2023-08-08 04:14] LABS: Anion Gap 12 (5-15); BUN 24 mg/dL (7-18); BUN/Creat Ratio 27.9 RATIO (10-20); Calcium,Total 6.4 mg/dL (8.5-10.1); Chloride 127 mmol/L (98-107); Creatinine, Serum 0.86 mg/dL (0.55-1.02); EST Glomerular Filtration Rate 67 mL/min (>60); Est Glom Filt Rate - Afr Amer 81 mL/min (>60); Estimated Creatinine Clearance 38.71 ml/min; Glucose 62 mg/dL (74-106); Potassium 2.9 mmol/L (3.5-5.1); Sodium Level 148 mmol/L (136-145)
[2023-08-08 04:22] LABS: Differential Comment SCANNED
[2023-08-08] MEDS: metroNIDAZOLE 500 MG/100 ML BAG 100 MG IV ×3 (06:23→22:28)
--- NOTE | 2023-08-08 07:37 | PN.HOSP_ITS ---
Reason for Visit Reason for Visit: Diagnoses Gastrointestinal hemorrhage, unspecified (08/06/23) Acute kidney failure, unspecified (08/06/23) Calculus of ureter (08/06/23) Diarrhea, unspecified (08/06/23) Subjective Subjective She has seen still has active hematuria. Diagnostic data reviewed patient has significant electrolyte abnormalities including hyperchloremic hypernatremia, hypokalemia Hypocalcemia and acidosis Objective Data Objective Data Vital Signs: Vital Signs Temp Pulse Resp BP Pulse Ox O2 Del Method O2 Flow Rate 96.7 F L 98 20 H 75/57 L 93 Nasal Cannula 2 08/08/23 01:00 08/08/23 07:00 08/08/23 07:00 08/08/23 07:00 08/08/23 07:00 08/08/23 07:00 08/08/23 07:00 Oxygen Flow Rate (L/min) 2 Oxygen Delivery Method Nasal Cannula Weight: 74.5 kg Body Mass Index (BMI) 31.0 Intake & Output: Intake and Output for Last 24 Hours 08/06/23 08/07/23 08/08/23 23:59 23:59 23:59 Intake Total 5188.0 / 5188.0 3386.17 / 3386.17 101 / 101 Output Total 200 / 200 300 / 300 Balance 5188.0 / 5188.0 3186.17 / 3186.17 -199 / -199 Lab / Micro Data 08/08/23 03:40 08/08/23 03:40 Labs: Laboratory Results - last 24 hr 08/06/23 15:50: Blood Type O POSITIVE, Antibody Screen NEGATIVE, Crossmatch See Detail 08/06/23 15:50: Crossmatch See Detail 08/07/23 09:45: Hgb 6.9 L, Hct 22.3 L 08/08/23 03:40: WBC 4.3 L, RBC 4.64, Hgb 12.6, Hct 38.8, MCV 83.6 D, MCH 27.2, MCHC 32.5, RDW Std Deviation 54.9 H, RDW Coeff of Valerie 18.6 H, Plt Count 158, MPV 10.4, Immature Gran % (Auto) 1.800 H, Neut % (Auto) 89.4 H, Lymph % (Auto) 7.9 L , [place] % (Auto) 0.2, Eos % (Auto) 0.2, Baso % (Auto) 0.5, Absolute Neuts (auto) 3.9, Absolute Lymphs (auto) 0.34 L, Nucleated RBC % 0, Differential Comment SCANNED, Sodium 148 H, Potassium 2.9 L, Chloride 127 H*, Carbon Dioxide 9.0 L*, Anion Gap 12, BUN 24 H, Creatinine 0.86, Estim Creat Clear Calc 38.71, Est GFR (MDRD) Af Amer 81, Est GFR (MDRD) Non-Af 67, BUN/Creatinine Ratio 27.9 H, Glucose 62 L, Calcium 6.4 L* Physical Exam Narrative GENERAL: cooperative HEENT: Atraumatic; normocephalic EYES; Anicteric, Normal Conjunctiva NECK; supple, normal thyroid, RESPIRATORY: Diminished to auscultation CARDIOVASCULAR: Regular S1 S2, GI: soft, normoactive bowel sounds, : No Renal angle tenderness; EXTREMITIES: No edema, no clubbing, MUSCULOSKELETAL: no muscle wasting NEURO: Awake; no lateralizing signs. SKIN: No Rash PSYCH; Flat affect Assessment & Plan Assessment/Plan (1) Acute lower gastrointestinal bleeding: (2) Acute kidney injury: PLAN: Plan An 83 F who presents with multiple comorbidities including DVT for which patient is on systemic anticoagulation with apixaban, presented with rectal bleeding. Patient symptoms started on the morning of her admission. CT of the abdomen and pelvis obtained on admission did show Thick-walled urinary bladder with adjacent stranding, consistent with cystitis. Bowel wall thickening in the sigmoid colon, consistent with colitis. 5 mm stone in the left mid ureter with mild left hydroureteronephrosis. Bilateral nonobstructing staghorn renal calculi. No right ureteral stones. 1. Acute lower GI bleed ? Secondary to colitis in the setting of systemic anticoagulation use with apixaban. Patient apixaban held on admission admitted to monitored bed patient was typed and crossmatched for 2 unit PRBC ordered H&H every 6 consult placed to GI from the ED. Patient started on ciprofloxacin as well as Flagyl ? 08/07/2023 patient remains on antibiotic therapy was seen in consultation by GI noted recommendations reviewed 2. Acute cystitis ? Urine culture sent patient started on ciprofloxacin pending culture result 3. Hypotension ? Secondary to patient GI bleed resuscitated with IV fluids admitted to monitored bed for further management. ? 08/08/2023 patient still remains hypotensive, ordered random cortisol level 4. Anemia ? Secondary to acute blood loss anemia. Monitoring H&H every 6 with plans to transfuse if patient becomes symptomatic or hemoglobin falls below 7 ? 08/08/2023 patient hemoglobin did drop to 6.9 today prior was transfused 1 unit PRBC 5. Acute kidney injury ? Patient creatinine on 06/05/2023 was 0.62 creatinine on admission was 2.19 started on IV fluid with subsequent monitoring of electrolytes ordered ? 08/08/2023 acute kidney injury resolved 6. Hyperchloremic hypernatremia ? Attributed to aggressive IV fluid resuscitation patient's possibly discontin ued started on D5.45 saline with every 4 BMP ordered 7. Hematuria ? Plan is for patient to undergo cystoscopy on 08/08/2023 patient is systemic anticoagulation with Eliquis on hold ? 08/08/2023 patient scheduled to undergo cystoscopy 8. Nephrolithiasis ? Patient CT of the abdomen and pelvis demonstrated8 5 mm stone in the left mid ureter with mild left hydroureteronephrosis. Bilateral nonobstructing staghorn renal calculi. No right ureteral stones. No right hydronephrosis. Consult placed to urology from the ED 9. Hypokalemia ? Corrected per protocol repeat labs ordered for monitor ? 08/08/2023 patient potassium levels still low 10. Metabolic acidosis ? Started on bicarb drip with every 4 BMPs ordered 11. Hypocalcemia ? Multifactorial including possible increased oral intake as well as patient's hypoalbuminemia, ionized calcium ordered. Calcium gluconate ordered 12. Restless leg syndrome ? Patient is on ropinirole plan is to continue with home dose 13. Previous history of DVT ? Patient is on apixaban held in view of her presenting complaints 14. DVT prophylaxis ? Patient already on apixaban which is held in view of her active GI bleed Time spent in the patient's overall evaluation,decision-making process, review of diagnostic data, adjustment of management, discussion with other providers, nursing nursing and ancillary staff involved in patient's care documentation, 55 Minutes Charges/Coding Visit Charges Inpatient E&M: 60316 [facility] L3
--- NOTE | 2023-08-08 08:01 | PN.GI_ITS ---
Subjective Subjective Patient is not stable at this time to an upper endoscopy. They are trying to establish better IV access. She did get transfused 2 units of blood. Objective Data Objective Data Vital Signs: Vital Signs Temp Pulse Resp BP Pulse Ox O2 Del Method O2 Flow Rate 96.1 F L 86 29 H 71/58 L 98 Room Air 2 08/08/23 16:00 08/08/23 16:00 08/08/23 16:00 08/08/23 16:45 08/08/23 16:00 08/08/23 16:00 08/08/23 11:00 Oxygen Flow Rate (L/min) 2 Oxygen Delivery Method Room Air Weight: 164 lb 3.91 oz Body Mass Index (BMI) 31.0 Intake & Output: Intake and Output for Last 24 Hours 08/06/23 08/07/23 08/08/23 23:59 23:59 23:59 Intake Total 5188.0 / 5188.0 3386.17 / 3386.17 2251.97 / 2251.97 Output Total 200 / 200 300 / 300 Balance 5188.0 / 5188.0 3186.17 / 3186.17 1951.97 / 1951.97 Lab / Micro Data 08/08/23 03:40 08/08/23 16:00 Labs: Laboratory Results - last 24 hr 08/06/23 15:50: Blood Type O POSITIVE, Antibody Screen NEGATIVE, Crossmatch See Detail 08/06/23 15:50: Crossmatch See Detail 08/08/23 03:40: WBC 4.3 L, RBC 4.64, Hgb 12.6, Hct 38.8, MCV 83.6 D, MCH 27.2, MCHC 32.5, RDW Std Deviation 54.9 H, RDW Coeff of Valerie 18.6 H, Plt Count 158, MPV 10.4, Immature Gran % (Auto) 1.800 H, Neut % (Auto) 89.4 H, Lymph % (Auto) 7.9 L , [place] % (Auto) 0.2, Eos % (Auto) 0.2, Baso % (Auto) 0.5, Absolute Neuts (auto) 3.9, Absolute Lymphs (auto) 0.34 L, Nucleated RBC % 0, Differential Comment SCANNED, Sodium 148 H, Potassium 2.9 L, Chloride 127 H*, Carbon Dioxide 9.0 L*, Anion Gap 12, BUN 24 H, Creatinine 0.86, Estim Creat Clear Calc 38.71, Est GFR (MDRD) Af Amer 81, Est GFR (MDRD) Non-Af 67, BUN/Creatinine Ratio 27.9 H, Glucose 62 L, Calcium 6.4 L* 08/08/23 11:15: Sodium 147 H, Potassium 4.0, Chloride 128 H*, Carbon Dioxide 10 .0 L, Anion Gap 9, BUN 24 H, Creatinine 1.04 H, Estim Creat Clear Calc 32.01, Est GFR (MDRD) Af Amer 65, Est GFR (MDRD) Non-Af 54 L, BUN/Creatinine Ratio 23.1 H, Glucose 100, Lactic Acid 1.9, Calcium 7.6 L, Phosphorus 1.4 L, Magnesium 1.7, Cortisol 50.20 H 08/08/23 11:34: Ionized Calcium 4.80 08/08/23 12:24: POC Glucose 83 08/08/23 16:00: Sodium 148 H, Potassium 3.6, Chloride 126 H, Carbon Dioxide 14.0 L, Anion Gap 8, BUN 22 H, Creatinine 1.10 H, Estim Creat Clear Calc 30.27, Est GFR (MDRD) Af Amer 61, Est GFR (MDRD) Non-Af 51 L, BUN/Creatinine Ratio 20.0, Glucose 172 H, Calcium 6.8 L ABG Data ABG results: ABG 08/08/23 11:25 Specimen Type ALEX Sample Site Central Line O2 % 21.0 VBG pH 7.18 L* VBG pO2 54 H VBG HCO3 7 L VBG Total CO2 8 L VBG O2 Sat (Calc) 81 H VBG Base Excess -21 L POC Mix VBG pCO2 Pt Tmp 18.7 L* O2 Delivery Device Not entered Crit Call To/Read Back Yes Blood Gas Notified [facility] Blood Gas Notified Time 11:27:03 Radiography Diagnostic Testing: Radiology Impression Chest X-Ray 08/08/23 11:30 IMPRESSION: Increased markings at the lung bases suggestive of atelectasis and/or scarring. The tip of the left-sided internal jugular venous catheter is at the junction of the superior vena cava and left brachiocephalic vein. Electronically Signed: Osmani Domingo MD at 12:14 EST , Physical Exam Narrative General alert in no acute distress HEENT. Normocephalic atraumatic, pupils equal and reactive Respiratory reduced air entry bilaterally, mild basal crackles Cardiac S1-S2, regular rate and rhythm GI abdomen soft and nontender MSK B/L lower extremity edema Skin no rashes Neuro R sided weakness, no dysarthria, no facial droop Assessment & Plan Assessment/Plan (1) Diarrhea: QUALIFIERS: Diarrhea type: unspecified type Qualified Code(s): R19.7 - Diarrhea, unspecified (2) Acute GI bleeding: PLAN: Plan 83 F who presents with multiple comorbidities including DVT for which patient is on systemic anticoagulation with apixaban, presented with rectal bleeding. -Acute diarrhea, acute C. difficile negative, enteric panel negative -Acute intermittent episode of hematochezia, stool for occult blood is positive in the ED CT scan does show ischemic colitis. She does have a history of ischemic colitis. I am okay with her antibiotics. I think that she should be treated with vitamin K 5 mg IV. I am not sure if your hypotension is secondary to GI bl eed in the setting of urinary tract infection which could lead to urosepsis. 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 She received transfusion of packed red blood cells. I ordered 2 more units of packed red blood cells due to hypotension. She will be scheduled for EGD tomorrow. I will put her on PPI drip and octreotide drip. Repeat CMP after patient has finished getting potassium replacement for potassium of 2.4.. 08/08-n.p.o. after midnight for EGD tomorrow. Hemoglobin slightly improved. Patient remains hypotensive and will likely need pressor therapy. Charges/Coding Visit Charges Inpatient E&M: 35200 Subs Hosp L3
[2023-08-08] MEDS: KCL 20MEQ in D5.45NS 20 MEQ/1,000 ML IV.SOLN. 75 MEQ IV (08:15)
[2023-08-08] MEDS: Calcium Gluconate IV 2 GM in 0.9% Normal Saline (100mL Bag) 100 ML IV (08:40)
[2023-08-08] MEDS: Potassium Chloride 10mEq/100mL 10 MEQ/100 ML IV.SOLN. 100 MEQ IV BOLUS ×4 (08:40→11:54)
--- NOTE | 2023-08-08 10:32 | EX.PCM.CONCC ---
Assessment & Plan Assessment/Plan (1) Acute kidney injury: (2) Acute GI bleeding: PLAN: Plan Assessment Acute none anion gap metabolic acidosis most likely iatrogenic secondary to excessive normal saline infusion as well as underlying SANTO SANTO Septic shock secondary to UTI and cystitis Hematuria with very stones Colitis Acute GI bleed Acute hypoxic resp failure on 2L NC History of DVT on Eliquis Obesity BMI of 31 Debility hx of CVA with R hemiparesis Plan -Patient has multiple electrolyte abnormalities likely secondary to normal saline infusion. Chart review revealed total of 7.5 L normal saline infusion since admission thus resulting in hyperchloremic hypernatremic none anion gap metabolic acidosis. On top of that patient has had an SANTO which may also be contributing to her low bicarb. -Thyroid labs pending. There is been a delay due to access issues -Worsening acidosis. There has been a delay in initiation of bicarb drip due to access issues. Unable to obtain PICC. Left CVC inserted. Given the patient's hypotension and pH of 7.192 A of bicarb to be given prior to her transfer to endoscopy suite. will also start her on Levophed. Recommend avoiding further NS use -Noted plans for cystoscopy and EGD. -She received 1U of PRBCs for Hgb of 6.9 -Cont cipro and flagyl. Follow cultures -DVT ppx SCD -pt remains NPO, watch for hypoglycemia with q6h BGT. I spent 35 minutes of critical care time excluding the procedure time. I reviewed lab work, images, previous records and medication list. HPI Consult Data Date of Consult: 08/08/23 HPI Narrative Reason for Consultation: ICU care HPI Narrative: DEMI MORTON, is a 83 F with past medical history of DVT on Eliquis, debility, obesity BMI of 31 and history of CKD. Patient presents from skilled nursing on 08/06 with feeling weak and was found to be hypotensive. She underwent CT scan of her abdomen which showed thick-walled urinary bladder with stranding consistent with cystitis with 5 mm stone in the left mid ureter and mild left hydronephrosis as well as bilateral nonobstructing staghorn renal calculi. She also had signs of colitis. Patient has received a total of 7.5 L normal saline for her sepsis she was also started on ciprofloxacin and Flagyl. [facility], [facility] Medical History Arthritis Back pain Cataracts, bilateral Chronic kidney disease CVA (cerebral vascular accident) DVT (deep venous thrombosis) Former smoker GERD (gastroesophageal reflux disease) Heartburn History of diverticulitis History of edema History of hiatal hernia History of IBS History of pain when walking Hyperlipemia Leg cramps Lives in skilled nursing Low iron Migraine headache Neuromuscular dysfunction of bladder, unspecified Other hammer toe(s) (acquired), right foot Polyneuropathy, unspecified Post-menopausal Rash Restless legs syndrome Syncope Urinary tract infection, site not specified Wears glasses Wears partial dentures Home Medications ropinirole 0.25 mg tablet 0.25 mg PO QHS RLS 07/25/20 [History Last Taken 06/12/22] acetaminophen 650 mg tablet,extended release 1,300 mg PO Q4H PRN Pain 06/13/22 [History Last Taken 06/09/22] apixaban 5 mg tablet (Eliquis) 5 mg PO BID BLOOD THINNER 06/13/22 [History Last Taken 01/03/23] ondansetron HCl 4 mg tablet 4 mg PO Q6H PRN Nausea 06/13/22 [History Last Taken 06/13/22] Allergy/AdvReac Type Severity Reaction Status Date / Time morphine Allergy Anaphylaxis Verified 03/05/23 14:25 Penicillins [PCN] Allergy Unknown Verified 03/05/23 14:25 Surgical History History of back surgery History of Hx laparoscopic cholecystectomy Hx of total knee arthroplasty Social History Smoking Status: Former smoker substance use type: does not use additional social history: Lives at the [facility]. Comes by transport on a cot ROS ROS Narrative Pertinent positives and pertinent negatives as noted in HPI. All other systems were reviewed and are negative Physical Exam Narrative General alert in no acute distress HEENT. Normocephalic atraumatic, pupils equal and reactive Respiratory reduced air entry bilaterally, mild basal crackles Cardiac S1-S2, regular rate and rhythm GI abdomen soft and nontender MSK B/L lower extremity edema Skin no rashes Neuro R sided weakness, no dysarthria, no facial droop Lab / Micro Data 08/08/23 03:40 08/08/23 03:40 Labs: Laboratory Results - last 24 hr 08/06/23 15:50: Blood Type O POSITIVE, Antibody Screen NEGATIVE, Crossmatch See Detail 08/06/23 15:50: Crossmatch See Detail 08/08/23 03:40: WBC 4.3 L, RBC 4.64, Hgb 12.6, Hct 38.8, MCV 83.6 D, MCH 27.2, MCHC 32.5, RDW Std Deviation 54.9 H, RDW Coeff of Valerie 18.6 H, Plt Count 158, MPV 10.4, Immature Gran % (Auto) 1.800 H, Neut % (Auto) 89.4 H, Lymph % (Auto) 7.9 L, [place] % (Auto) 0.2, Eos % (Auto) 0.2, Baso % (Auto) 0.5, Absolute Neuts (auto) 3.9, Absolute Lymphs (auto) 0.34 L, Nucleated RBC % 0, Differential Comment SCANNED, Sodium 148 H, Potassium 2.9 L, Chloride 127 H*, Carbon Dioxide 9.0 L*, Anion Gap 12, BUN 24 H, Creatinine 0.86, Estim Creat Clear Calc 38.71, Est GFR (MDRD) Af Amer 81, Est GFR (MDRD) Non-Af 67, BUN/Creatinine Ratio 27.9 H, Glucose 62 L, Calcium 6.4 L* Sepsis Attestation Sepsis Attestation: Agree w/Sepsis Possible Source of Sepsis: GI tract/intra-abdominal and Genitourinary Sepsis Organ Dysfunction Criteria Present: SBP < 90 mmHg or MAP < 65 mmHg Fluid Resuscitation Fluid resuscitation indicated?: Yes Fluid Resuscitation ordered: 30 ml/kg fluid bolus ordered Sepsis Note Response to fluids: Non Fluid responsive hypotension and Vasopressors started Charges/Coding Procedures Hospitalists Procedures: 27132 Critial Care 1st Hr
--- NOTE | 2023-08-08 10:54 | PCM.PN.GU ---
Subjective Subjective 83-year-old female very low blood pressure in the intensive care unit at this point, I андрей cancel the stent placement I can recommend the hospitalist consult the radiology for a left nephrostomy tube placement I will talk to the hospitalist and let him know that I have made a decision not to place a stent given that she is unstable and her blood pressure is too low. Objective Data Objective Data Vital Signs: Vital Signs Temp Pulse Resp BP Pulse Ox O2 Del Method O2 Flow Rate 96.7 F L 97 17 62/38 L 99 Nasal Cannula 2 08/08/23 01:00 08/08/23 10:00 08/08/23 10:00 08/08/23 10:00 08/08/23 10:00 08/08/23 10:00 08/08/23 10:00 Oxygen Flow Rate (L/min) 2 Oxygen Delivery Method Nasal Cannula Weight: 74.5 kg Body Mass Index (BMI) 31.0 Intake & Output: Intake and Output for Last 24 Hours 08/06/23 08/07/23 08/08/23 23:59 23:59 23:59 Intake Total 5188.0 / 5188.0 3386.17 / 3386.17 1233.5 / 1233.5 Output Total 200 / 200 300 / 300 Balance 5188.0 / 5188.0 3186.17 / 3186.17 933.5 / 933.5 Lab / Micro Data 08/08/23 03:40 08/08/23 03:40 Labs: Laboratory Results - last 24 hr 08/06/23 15:50: Blood Type O POSITIVE, Antibody Screen NEGATIVE, Crossmatch See Detail 08/06/23 15:50: Crossmatch See Detail 08/08/23 03:40: WBC 4.3 L, RBC 4.64, Hgb 12.6, Hct 38.8, MCV 83.6 D, MCH 27.2, MCHC 32.5, RDW Std Deviation 54.9 H, RDW Coeff of Valerie 18.6 H, Plt Count 158, MPV 10.4, Immature Gran % (Auto) 1.800 H, Neut % (Auto) 89.4 H, Lymph % (Auto) 7.9 L, [place] % (Auto) 0.2, Eos % (Auto) 0.2, Baso % (Auto) 0.5, Absolute Neuts (auto) 3.9, Absolute Lymphs (auto) 0.34 L, Nucleated RBC % 0, Differential Comment SCANNED, Sodium 148 H, Potassium 2.9 L, Chloride 127 H*, Carbon Dioxide 9.0 L*, Anion Gap 12, BUN 24 H, Creatinine 0.86, Estim Creat Clear Calc 38.71, Est GFR (MDRD) Af Amer 81, Est GFR (MDRD) Non-Af 67, BUN/Creatinine Ratio 27.9 H, Glucose 62 L, Calcium 6.4 L*
[2023-08-08] MEDS: Sodium Bicarbonate 50 MEQ in Dextrose 5%-Water (1000mL Bag) 1,000 ML 100 MEQ IV (10:55)
[2023-08-08 11:29] LABS: Blood Gas Specimen Type VEN; O2 Delivery Device Not entered; SITE Central Line; VBG BASE EXCESS -21 mmol/L (-1.0-3.5); VBG Bicarbonate 7 mmol/L (22-26); VBG PO2 54 mmHg (25-40); VBG SO2 81 % (50-70); VBG TCO2 8 mmol/L (23-33); VBG pCO2 18.7 mmHg (41-51); VBG pH 7.18 (7.32-7.42)
--- NOTE | 2023-08-08 11:30 | RAD_ITS ---
STUDY: X-RAY CHEST REASON FOR EXAM: Female, 83 years old. Central line placement TECHNIQUE: Single AP portable view of the chest. COMPARISON: Comparison is made with prior study dated July 25, 2020. FINDINGS: A left-sided internal jugular venous catheter has been placed with the tip at the junction of the superior vena cava and left brachiocephalic vein. EKG electrodes are seen. Increased linear markings at the lung bases slightly worse on the left side suggestive of bibasilar atelectasis or underlying scarring. There is no demonstrated pleural abnormality. Normal size heart. Normal mediastinum and zulma. Normal visualized pulmonary arteries. There is atherosclerotic calcification of the aortic arch with tortuosity. Normal visualized thoracic spine. There is degenerative osteoarthritis of the bilateral shoulders. There is no demonstrated abnormality of the visualized soft tissue structures of the upper abdomen. RAD/CXR for Line Placement IMPRESSION: Increased markings at the lung bases suggestive of atelectasis and/or scarring. The tip of the left-sided internal jugular venous catheter is at the junction of the superior vena cava and left brachiocephalic vein. Electronically Signed: Osmani Domingo MD at 12:14 EST ,
[2023-08-08] MEDS: Sodium Bicarbonate 8.4% 50 ML Syringe 50 MEQ IV ×2 (11:38→11:43)
[2023-08-08] MEDS: 0.9% Saline Lock 10 ML Syringe IV ×3 (11:43→20:58)
[2023-08-08] MEDS: Pantoprazole Sodium 40 MG in 0.9% Normal Saline (100mL MB+) 100 ML 330 MG IV ×2 (11:43→20:57)
[2023-08-08 11:45] LABS: Magnesium 1.7 mg/dL (1.6-2.6)
[2023-08-08] MEDS: Ciprofloxacin 400 MG/200 ML BAG 200 MG IV ×2 (11:45→21:28)
[2023-08-08] MEDS: Menthol/Lanolin/Calamine/Znox 113 GM Tube 1 APPLIC TOPICAL ×2 (11:46→20:58)
[2023-08-08] MEDS: Norepinephrine 8 MG in 0.9% Normal Saline (250mL Bag) 242 ML 9.4 MG CONT INF (11:50)
--- NOTE | 2023-08-08 11:53 | PRO.PCM_ITS ---
Procedure Report Date of Procedure: 08/08/23 Central Line Procedure Note INDICATION: Septic shock, severe acidosis, need for access CONSENT: During the informed consent discussion regarding the procedure, or treatment, I explained the following to the patient/designee: a. Nature of the procedure or treatment and who will perform the procedure or treatment. b. Necessity for procedure and the possible benefits. c. Risks and complications (most common and serious). d. Alternative treatments and the risks, benefits and side effects of each (including no treatment). e. Likelihood of the patient achieving his/her goals without this procedure and surgery treatment. f. Problems that might occur during the recuperation. g. Conflicts of interest, if any PROCEDURE SUMMARY: A time out was performed. My hands were washed immediately prior to the procedure. I wore a surgical cap, mask with protective eyewear, full gown and sterile gloves throughout the procedure. The patient was placed in Trendelenburg position. LEFT chest region was prepped using chlorhexidine scrub and draped in sterile fashion using a full drape and sterile probe cover and sterile gel employed. The medial and lateral heads of the sternocleidomastoid muscle were identified as was the carotid pulse. The Inte rnal Jugular vein was identified using the ultrasound. Anesthesia was achieved over the vein using 1% lidocaine. Using real-time out of plane guidance, the introducer needle was inserted into the Internal Jugular vein under direct ultrasound visualization. Venous blood was withdrawn. The syringe was removed and a guidewire was advanced into the introducer needle. The guidewire was visualized in the Internal Jugular Vein by ultrasound. A small incision was made at the skin surface with a scalpel and the introducer needle was exchanged for a dilator over the guidewire. After appropriate dilation was obtained, the dilator was exchanged over the wire for a 7fr central venous catheter. The wire was removed and the catheter was sutured in place at 16 cm. A sterile sorbaview shield was placed over the catheter at the insertion site. The patient tolerated the procedure without any hemodynamic compromise. At time of procedure completion, all ports aspirated and flushed properly. Post-procedure chest x-ray is pending at this time. Estimated blood loss is <5cc. Procedures Hospitalists Procedures: 05096 Insert Non-tunnel CV Cath
[2023-08-08 11:56] LABS: Phosphorus 1.4 mg/dL (2.5-4.9)
[2023-08-08 11:57] LABS: Anion Gap 9 (5-15); BUN 24 mg/dL (7-18); BUN/Creat Ratio 23.1 RATIO (10-20); Calcium,Total 7.6 mg/dL (8.5-10.1); Chloride 128 mmol/L (98-107); Creatinine, Serum 1.04 mg/dL (0.55-1.02); EST Glomerular Filtration Rate 54 mL/min (>60); Est Glom Filt Rate - Afr Amer 65 mL/min (>60); Estimated Creatinine Clearance 32.01 ml/min; Glucose 100 mg/dL (74-106); Sodium Level 147 mmol/L (136-145)
[2023-08-08 11:58] LABS: Lactic Acid 1.9 mmol/L (0.4-1.9)
--- NOTE | 2023-08-08 12:28 | PRO.PCM_ITS ---
Procedure Report Date of Procedure: 08/08/23 Assessment & Plan Assessment/Plan (1) Acute GI bleeding: (2) Acute UTI: Procedure Time Out Time Out Informed consent given: Yes Consent signed: Yes Time out checklist: patient, procedure, site marked/identified, positioning of patient, supplies available, allergies confirmed and team agrees on procedure Time out verified: Yes Time out date: 08/08/23 Time out time: 09:34 PICC Line Consent Consent obtained:: Yes Consent given by (patient or responsible constitution party):: PATIENT Line successful (if no, document why in comments):: No Insertion Reason for Insertion: Poor Venous Access Comments Comment: Attempted insertion of double-lumen PICC in left basilic. Vein spasmed and unable to advance guidewire. Patient also has limited restriction due to previous stroke with right-sided weakness. Patient tolerated attempted insertion well. Primary nurse made aware of unsuccessful attempt with recommendation for CVC placement until perhaps more hemodynamically stable.
[2023-08-08 12:59] LABS: Bedside Glucose 83 mg/dL (74-106)
[2023-08-08] MEDS: Magnesium Sulfate 4gm/100mL 4 GM/100 ML IV.SOLN. IV (13:01)
[2023-08-08] MEDS: Phenylephrine 10 MG in 0.9% Normal Saline (250mL Bag) 249 ML 15 MG CONT INF (14:55)
[2023-08-08 16:24] LABS: Anion Gap 8 (5-15); BUN 22 mg/dL (7-18); Calcium,Total 6.8 mg/dL (8.5-10.1); Chloride 126 mmol/L (98-107); EST Glomerular Filtration Rate 51 mL/min (>60); Est Glom Filt Rate - Afr Amer 61 mL/min (>60); Estimated Creatinine Clearance 30.27 ml/min; Glucose 172 mg/dL (74-106); Potassium 3.6 mmol/L (3.5-5.1); Sodium Level 148 mmol/L (136-145)
[2023-08-08] MEDS: Phenylephrine 10 MG in 0.9% Normal Saline (250mL Bag) 249 ML 165 MG CONT INF (17:20)
[2023-08-08 17:57] LABS: Bedside Glucose 167 mg/dL (74-106)
[2023-08-08] MEDS: Phenylephrine 40 mg/250 mL 0.9% NS 63.8 MG CONT INF (18:45)
[2023-08-08] MEDS: Vasopressin 20 UNITS in 0.9% Normal Saline (50mL Bag) 24 ML 3 UNITS CONT INF ×2 (18:50→22:42)
[2023-08-08] MEDS: Hydrocortisone Sod Succinate 100 MG/2 ML Vial 50 MG IV ×2 (18:51→22:42)
[2023-08-08] MEDS: Vancomycin HCl 2,000 MG in 0.9% Normal Saline (500mL Bag) 500 ML 250 MG IV (19:49)
--- NOTE | 2023-08-08 20:10 | PCM.RX.CS ---
Consult Antibiotic Management Pharmacy has been consulted to manage selected antiobiotic: Vancomycin Type of Intervention Type of Consult: New start Suspected Infection Suspected Infection: Sepsis Labs Labs: Sodium 148 mmol/L (136-145) H 08/08/23 16:00 Potassium 3.6 mmol/L (3.5-5.1) 08/08/23 16:00 Chloride 126 mmol/L (98-107) H 08/08/23 16:00 Carbon Dioxide 14.0 mmol/L (21.0-32.0) L 08/08/23 16:00 Anion Gap 8 (5-15) 08/08/23 16:00 BUN 22 mg/dL (7-18) H 08/08/23 16:00 Creatinine 1.10 mg/dL (0.55-1.02) H 08/08/23 16:00 Est GFR (MDRD) Af Amer 61 mL/min (>60) 08/08/23 16:00 Est GFR (MDRD) Non-Af 51 mL/min (>60) L 08/08/23 16:00 BUN/Creatinine Ratio 20.0 RATIO (10-20) 08/08/23 16:00 Glucose 172 mg/dL (74-106) H 08/08/23 16:00 Goal Trough Goal Trough: 15-20 mcg/mL Pharmacy Plan for Drug Dosing Pharmacy Plan for Drug Dosing: NEW START IV VANCOMYCIN Consulting Physician: Dr. Alcazar Indication: Sepsis Goal Trough: 15-20 SrCr: 1.1 CrCl: 37 ml/min (using AdjBW) Comments: patient had been ordered a loading dose of 2000mg IV x1, given 08/08 @1948 Vancomycin Dose: 1000mg IV Q24hr to start 08/09/23 @1999 Pending Level: 08/10/23 @1930, prior to 3rd total dose per protocol Pharmacy Service will continue to monitor and adjust dosing as required.
[2023-08-08 20:44] LABS: Anion Gap 7 (5-15); BUN 20 mg/dL (7-18); BUN/Creat Ratio 18.9 RATIO (10-20); Calcium,Total 6.9 mg/dL (8.5-10.1); Chloride 125 mmol/L (98-107); Creatinine, Serum 1.06 mg/dL (0.55-1.02); EST Glomerular Filtration Rate 53 mL/min (>60); Est Glom Filt Rate - Afr Amer 64 mL/min (>60); Estimated Creatinine Clearance 31.41 ml/min; Glucose 228 mg/dL (74-106); Potassium 3.7 mmol/L (3.5-5.1); Sodium Level 146 mmol/L (136-145)
[2023-08-08] MEDS: Phenylephrine 40 mg/250 mL 0.9% NS 67.5 MG CONT INF (22:35)
--- NOTE | 2023-08-08 23:37 | CPS ---
Patient already off bipap. Only worn for a short period of time, patient now refusing. On 2L 97%
[2023-08-09] VITALS (25 sets, daily range): BP systolic 26–116; BP diastolic 18–77; PULSE 78–132; RESP 14–22; TEMP 36.1–36.8; O2SAT 2–100; BMI 32.6; BMI 32.7
[2023-08-09 00:23] LABS: Bedside Glucose 187 mg/dL (74-106)
[2023-08-09 01:21] LABS: Anion Gap 9 (5-15); BUN 19 mg/dL (7-18); BUN/Creat Ratio 20.3 RATIO (10-20); Calcium,Total 6.4 mg/dL (8.5-10.1); Chloride 125 mmol/L (98-107); Creatinine, Serum 0.94 mg/dL (0.55-1.02); EST Glomerular Filtration Rate 61 mL/min (>60); Est Glom Filt Rate - Afr Amer 74 mL/min (>60); Estimated Creatinine Clearance 35.42 ml/min; Glucose 250 mg/dL (74-106); Potassium 3.5 mmol/L (3.5-5.1); Sodium Level 146 mmol/L (136-145)
[2023-08-09] MEDS: Calcium Gluconate IV 2 GM in 0.9% Normal Saline (100mL Bag) 100 ML IV (01:40)
[2023-08-09] MEDS: Phenylephrine 40 mg/250 mL 0.9% NS 67.5 MG CONT INF ×3 (02:18→10:00)
[2023-08-09 03:48] LABS: Absolute Lymphocyte Count 0.64 X10^3/uL (0.83-4.51); Absolute Neutrophil Count 8.4 X10^3/uL (2.0-7.7); Basophil# 0.03 X10^3/uL; Basophil% 0.3 % (0-1); Hematocrit 40.4 % (37-47); Hemoglobin 13.7 g/dL (12.0-15.0); Lymphocyte # 0.64 X10^3/ul (0.83-4.51); Lymphocyte % 6.8 % (19-41); Mean Corp Hgb Conc 33.9 g/dL (32-36); Mean Corpuscular Hgb 27.6 pg (27.0-32.0); Mean Corpuscular Volume 81.3 fL (81-99); Mean Platelet Vol. 10.6 fl (6.2-12.0); Monocyte# 0.18 X10^3/uL; Monocyte% 1.9 % (0-10); NRBC Flagged by Analyzer 0.3 % (0-5); Neutrophil # 8.44 X10^3/uL (2.7-7.7); Neutrophil % 89.4 % (47-70); POSITIVE MORPHOLOGY YES; Platelet Count 195 K/mm3 (150-450); RBC Distribution Width CV 20.1 % (11.6-14.6); RBC Distribution Width SD 56.5 fl (35.1-43.9); Red Blood Count 4.97 M/mm3 (4.2-5.4); White Blood Count 9.4 K/mm3 (4.4-11.0)
[2023-08-09 03:50] LABS: Differential Indicated SCAN CRITERIA MET
[2023-08-09 03:53] LABS: Ionized Calcium 4.67 mg/dL (4.36-5.20)
[2023-08-09 04:05] LABS: Anion Gap 9 (5-15); BUN 20 mg/dL (7-18); BUN/Creat Ratio 21.6 RATIO (10-20); Calcium,Total 7.3 mg/dL (8.5-10.1); Chloride 126 mmol/L (98-107); Creatinine, Serum 0.93 mg/dL (0.55-1.02); EST Glomerular Filtration Rate 62 mL/min (>60); Est Glom Filt Rate - Afr Amer 75 mL/min (>60); Glucose 250 mg/dL (74-106); Magnesium 2.6 mg/dL (1.6-2.6); Potassium 3.5 mmol/L (3.5-5.1); Sodium Level 147 mmol/L (136-145)
[2023-08-09] MEDS: metroNIDAZOLE 500 MG/100 ML BAG 100 MG IV ×2 (06:18→14:02)
[2023-08-09] MEDS: Vasopressin 20 UNITS in 0.9% Normal Saline (50mL Bag) 24 ML 3 UNITS CONT INF ×2 (06:18→14:01)
[2023-08-09] MEDS: MENTHOL 226.8 GM JAR 1 APPLIC TOPICAL ×2 (06:18→10:54)
[2023-08-09] MEDS: Hydrocortisone Sod Succinate 100 MG/2 ML Vial 50 MG IV ×2 (06:18→10:54)
[2023-08-09] MEDS: Menthol/Lanolin/Calamine/Znox 113 GM Tube 1 APPLIC TOPICAL ×2 (06:18→10:54)
[2023-08-09] MEDS: 0.9% Saline Lock 10 ML Syringe IV ×2 (06:18→21:51)
[2023-08-09] MEDS: Potassium Phosphate 30 MMOL in 0.9% Normal Saline (250mL Bag) 250 ML 42 MMOL IV (06:31)
[2023-08-09 07:00] LABS: Bedside Glucose 219 mg/dL (74-106)
[2023-08-09 07:02] LABS: Anisocytosis 1+; Differential Comment SCANNED
--- NOTE | 2023-08-09 07:32 | PN.URO_ITS ---
Subjective Subjective 83-year-old female in the intensive care unit she had a hemoglobin of 6.9 on the fifth this was corrected with transfusions comes in with a GI bleed also has obstructing stone partially obstructing in the left ureter has some hematuria in the urine. She is currently in critical condition in the ICU she is on vasop ressin and phenylephrine blood pressure is finally better controlled, hemoglobin stable, once patient is deemed stable enough she can have a left nephrostomy tube placed to deal with the partial obstruction on the left side this also help facilitate removal of the left kidney stones in the future. Call with questions Objective Data Objective Data Vital Signs: Vital Signs Temp Pulse Resp BP Pulse Ox O2 Del Method O2 Flow Rate 98.2 F 79 16 97/64 99 Nasal Cannula 2 08/09/23 07:00 08/09/23 07:00 08/09/23 07:00 08/09/23 07:00 08/09/23 07:00 08/09/23 07:00 08/09/23 07:00 FiO2 30 08/08/23 21:18 Oxygen Flow Rate (L/min) 2 Oxygen Delivery Method Nasal Cannula Weight: 78.5 kg Body Mass Index (BMI) 32.7 Intake & Output: Intake and Output for Last 24 Hours 08/07/23 08/08/23 08/09/23 23:59 23:59 23:59 Intake Total 3386.17 / 3386.17 5523.01 / 5593.51 782.24 / 782.24 Output Total 200 / 200 300 / 525 475 / 475 Balance 3186.17 / 3186.17 5223.01 / 5068.51 307.24 / 307.24 Lab / Micro Data 08/09/23 03:37 08/09/23 03:37 Labs: Laboratory Results - last 24 hr 08/08/23 11:15: Sodium 147 H, Potassium 4.0, Chloride 128 H*, Carbon Dioxide 10.0 L, Anion Gap 9, BUN 24 H, Creatinine 1.04 H, Estim Creat Clear Calc 32.01, Est GFR (MDRD) Af Amer 65, Est GFR (MDRD) Non-Af 54 L, BUN/Creatinine Ratio 23.1 H, Glucose 100, Lactic Acid 1.9, Calcium 7.6 L, Phosphorus 1.4 L, Magnesium 1.7, Cortisol 50.20 H 08/08/23 11:34: Ionized Calcium 4.80 08/08/23 12:24: POC Glucose 83 08/08/23 16:00: Sodium 148 H, Potassium 3.6, Chloride 126 H, Carbon Dioxide 14.0 L, Anion Gap 8, BUN 22 H, Creatinine 1.10 H, Estim Creat Clear Calc 30.27, Est GFR (MDRD) Af Amer 61, Est GFR (MDRD) Non-Af 51 L, BUN/Creatinine Ratio 20.0, Glucose 172 H, Calcium 6.8 L 08/08/23 17:34: POC Glucose 167 H 08/08/23 20:15: Sodium 146 H, Potassium 3.7, Chloride 125 H, Carbon Dioxide 14.0 L, Anion Gap 7, BUN 20 H, Creatinine 1.06 H, Estim Creat Clear Calc 31.41, Est GFR (MDRD) Af Amer 64, Est GFR (MDRD) Non-Af 53 L, BUN/Creatinine Ratio 18.9, Glucose 228 H, Calcium 6.9 L 08/09/23 00:04: POC Glucose 187 H 08/09/23 00:18: Sodium 146 H, Potassium 3.5, Chloride 125 H, Carbon Dioxide 12.0 L, Anion Gap 9, BUN 19 H, Creatinine 0.94, Estim Creat Clear Calc 35.42, Est GFR (MDRD) Af Amer 74, Est GFR (MDRD) Non-Af 61, BUN/Creatinine Ratio 20.3 H, Glucose 250 H, Calcium 6.4 L* 08/09/23 03:37: WBC 9.4, RBC 4.97, Hgb 13.7, Hct 40.4, MCV 81.3, MCH 27.6, MCHC 33.9, RDW Std Deviation 56.5 H, RDW Coeff of Valerie 20.1 H, Plt Count 195, MPV 10.6, Immature Gran % (Auto) 1.600 H, Neut % (Auto) 89.4 H, Lymph % (Auto) 6.8 L , [place] % (Auto) 1.9, Eos % (Auto) 0.0, Baso % (Auto) 0.3, Absolute Neuts (auto) 8.4 H, Absolute Lymphs (auto) 0.64 L, Nucleated RBC % 0.3, Differential Comment SCANNED, Anisocytosis 1+, Sodium 147 H, Potassium 3.5, Chloride 126 H, Carbon Dioxide 12.0 L, Anion Gap 9, BUN 20 H, Creatinine 0.93, Estim Creat Clear Calc 35.80, Est GFR (MDRD) Af Amer 75, Est GFR (MDRD) Non-Af 62, BUN/Creatinine Ratio 21.6 H, Glucose 250 H, Calcium 7.3 L, Phosphorus 1.0 L*, Magnesium 2.6 08/09/23 03:48: Ionized Calcium 4.67 08/09/23 06:39: POC Glucose 219 H ABG Data ABG results: ABG 08/08/23 11:25 Specimen Type ALEX Sample Site Central Line O2 % 21.0 VBG pH 7.18 L* VBG pO2 54 H VBG HCO3 7 L VBG Total CO2 8 L VBG O2 Sat (Calc) 81 H VBG Base Excess -21 L POC Mix VBG pCO2 Pt Tmp 18.7 L* O2 Delivery Device Not entered Crit Call To/Read Back Yes Blood [facility] Not[facility] Notified Time 11:27:03 Radiography Diagnostic Testing: Radiology Impression Chest X-Ray 08/08/23 11:30 IMPRESSION: Increased markings at the lung bases suggestive of atelectasis and/or scarring. The tip of the left-sided internal jugular venous catheter is at the junction of the superior vena cava and left brachiocephalic vein. Electronically Signed: Osmani Domingo MD at 12:14 EST ,
[2023-08-09] MEDS: Pantoprazole Sodium 40 MG in 0.9% Normal Saline (100mL MB+) 100 ML 330 MG IV (08:17)
[2023-08-09] MEDS: Ciprofloxacin 400 MG/200 ML BAG 200 MG IV (08:21)
--- NOTE | 2023-08-09 09:29 | PN.HOSP_ITS ---
Reason for Visit Reason for Visit: Diagnoses Gastrointestinal hemorrhage, unspecified (08/06/23) Acute kidney failure, unspecified (08/06/23) Calculus of ureter (08/06/23) Urinary tract infection, site not specified (08/06/23) Diarrhea, unspecified (08/06/23) Subjective Subjective Was transfused with total of 3 unit PRBC. Blood pressure still remains relatively low. Random cortisol level was within normal limits. Patient acidosis as well as hyperchloremic hypernatremia persist Objective Data Objective Data Vital Signs: Vital Signs Temp Pulse Resp BP Pulse Ox O2 Del Method O2 Flow Rate 97.8 F 81 16 80/59 L 100 Nasal Cannula 2 08/09/23 08:00 08/09/23 09:00 08/09/23 09:00 08/09/23 09:00 08/09/23 09:00 08/09/23 09:00 08/09/23 09:00 FiO2 30 08/08/23 21:18 Oxygen Flow Rate (L/min) 2 Oxygen Delivery Method Nasal Cannula Weight: 78.5 kg Body Mass Index (BMI) 32.7 Intake & Output: Intake and Output for Last 24 Hours 08/07/23 08/08/23 08/09/23 23:59 23:59 23:59 Intake Total 3386.17 / 3386.17 5523.01 / 5593.51 1227.24 / 1227.24 Output Total 200 / 200 300 / 525 575 / 575 Balance 3186.17 / 3186.17 5223.01 / 5068.51 652.24 / 652.24 Lab / Micro Data 08/09/23 03:37 08/09/23 03:37 Labs: Laboratory Results - last 24 hr 08/08/23 11:15: Sodium 147 H, Potassium 4.0, Chloride 128 H*, Carbon Dioxide 10.0 L, Anion Gap 9, BUN 24 H, Creatinine 1.04 H, Estim Creat Clear Calc 32.01, Est GFR (MDRD) Af Amer 65, Est GFR (MDRD) Non-Af 54 L, BUN/Creatinine Ratio 23.1 H, Glucose 100, Lactic Acid 1.9, Calcium 7.6 L, Phosphorus 1.4 L, Magnesium 1.7, Cortisol 50.20 H 08/08/23 11:34: Ionized Calcium 4.80 08/08/23 12:24: POC Glucose 83 08/08/23 16:00: Sodium 148 H, Potassium 3.6, Chloride 126 H, Carbon Dioxide 14.0 L, Anion Gap 8, BUN 22 H, Creatinine 1.10 H, Estim Creat Clear Calc 30.27, Est GFR (MDRD) Af Amer 61, Est GFR (MDRD) Non-Af 51 L, BUN/Creatinine Ratio 20.0, G lucose 172 H, Calcium 6.8 L 08/08/23 17:34: POC Glucose 167 H 08/08/23 20:15: Sodium 146 H, Potassium 3.7, Chloride 125 H, Carbon Dioxide 14.0 L, Anion Gap 7, BUN 20 H, Creatinine 1.06 H, Estim Creat Clear Calc 31.41, Est GFR (MDRD) Af Amer 64, Est GFR (MDRD) Non-Af 53 L, BUN/Creatinine Ratio 18.9, Glucose 228 H, Calcium 6.9 L 08/09/23 00:04: POC Glucose 187 H 08/09/23 00:18: Sodium 146 H, Potassium 3.5, Chloride 125 H, Carbon Dioxide 12.0 L, Anion Gap 9, BUN 19 H, Creatinine 0.94, Estim Creat Clear Calc 35.42, Est GFR (MDRD) Af Amer 74, Est GFR (MDRD) Non-Af 61, BUN/Creatinine Ratio 20.3 H, Glucose 250 H, Calcium 6.4 L* 08/09/23 03:37: WBC 9.4, RBC 4.97, Hgb 13.7, Hct 40.4, MCV 81.3, MCH 27.6, MCHC 33.9, RDW Std Deviation 56.5 H, RDW Coeff of Valerie 20.1 H, Plt Count 195, MPV 10.6, Immature Gran % (Auto) 1.600 H, Neut % (Auto) 89.4 H, Lymph % (Auto) 6.8 L , [place] % (Auto) 1.9, Eos % (Auto) 0.0, Baso % (Auto) 0.3, Absolute Neuts (auto) 8.4 H, Absolute Lymphs (auto) 0.64 L, Nucleated RBC % 0.3, Differential Comment SCANNED, Anisocytosis 1+, Sodium 147 H, Potassium 3.5, Chloride 126 H, Carbon Dioxide 12.0 L, Anion Gap 9, BUN 20 H, Creatinine 0.93, Estim Creat Clear Calc 35.80, Est GFR (MDRD) Af Amer 75, Est GFR (MDRD) Non-Af 62, BUN/Creatinine Ratio 21.6 H, Glucose 250 H, Calcium 7.3 L, Phosphorus 1.0 L*, Magnesium 2.6 08/09/23 03:48: Ionized Calcium 4.67 08/09/23 06:39: POC Glucose 219 H ABG Data ABG results: ABG 08/08/23 11:25 Specimen Type ALEX Sample Site Central Line O2 % 21.0 VBG pH 7.18 L* VBG pO2 54 H VBG HCO3 7 L VBG Total CO2 8 L VBG O2 Sat (Calc) 81 H VBG Base Excess -21 L POC Mix VBG pCO2 Pt Tmp 18.7 L* O2 Delivery Device Not entered Crit Call To/Read Back Yes Blood Gas Notified Whom [facility] Blood Gas Notified Time 11:27:03 Radiography Diagnostic Testing: Radiology Impression Chest X-Ray 08/08/23 11:30 IMPRESSION: Increased markings at the lung bases suggestive of atelectasis and/or scarring. The tip of the left-sided internal jugular venous catheter is at the junction of the superior vena cava and left brachiocephalic vein. Electronically Signed: Osmani Domingo MD at 12:14 EST Reading Location ID and State: [address] [place] [address] , Service support , Physical Exam Narrative GENERAL: cooperative HEENT: Atraumatic; normocephalic EYES; Anicteric, Normal Conjunctiva NECK; supple, normal thyroid, RESPIRATORY: Diminished to auscultation CARDIOVASCULAR: Regular S1 S2, GI: soft, normoactive bowel sounds, : No Renal angle tenderness; EXTREMITIES: No edema, no clubbing, MUSCULOSKELETAL: no muscle wasting NEURO: Awake; no lateralizing signs. SKIN: No Rash PSYCH; Flat affect Assessment & Plan Assessment/Plan (1) Acute lower gastrointestinal bleeding: (2) Acute kidney injury: PLAN: Plan An 83 F who presents with multiple comorbidities including DVT for which patient is on systemic anticoagulation with apixaban, presented with rectal bleeding. Patient symptoms started on the morning of her admission. CT of the abdomen and pelvis obtained on admission did show Thick-walled urinary bladder with adjacent stranding, consistent with cystitis. Bowel wall thickening in the sigmoid colon, consistent with colitis. 5 mm stone in the left mid ureter with mild left hydroureteronephrosis. Bilateral nonobstructing staghorn renal calculi. No right ureteral stones. 1. Acute lower GI bleed ? Secondary to colitis in the setting of systemic anticoagulation use with ap ixaban. Patient apixaban held on admission admitted to [facility] bed patient was typed and crossmatched for 2 unit PRBC ordered H&H every 6 consult placed to GI from the ED. Patient started on ciprofloxacin as well as Flagyl ? 08/07/2023 patient remains on antibiotic therapy was seen in consultation by GI noted recommendations reviewed ? 08/09/2023 patient has received total of 3 unit PRBC 2. Acute cystitis ? Urine culture sent patient started on ciprofloxacin ? 08/09/2023 blood culture still pending 3. Hypotension ? Secondary to patient GI bleed resuscitated with IV fluids admitted to [facility] for further management. ? 08/08/2023 patient still remains hypotensive, ordered random cortisol level ?08/09/2023 patient blood pressure still remains low random cortisol level and evidence of adrenal insufficiency patient subsequently started on midodrine 4. Anemia ? Secondary to acute blood loss anemia. Monitoring H&H every 6 with plans to transfuse if patient becomes symptomatic or hemoglobin falls below 7 ? 08/08/2023 patient hemoglobin did drop to 6.9 today prior was transfused 1 unit PRBC ?08/09/2023 patient has received total of 3 unit PRBC 5. Acute kidney injury ? Patient creatinine on 06/05/2023 was 0.62 creatinine on admission was 2.19 started on IV fluid with subsequent monitoring of electrolytes ordered ? 08/08/2023 acute kidney injury resolved 6. Hyperchloremic hypernatremia ? Attributed to aggressive IV fluid resuscitation patient's possibly discontinued started on D5.45 saline with every 4 BMP ordered 7. Hematuria ? Plan is for patient to undergo cystoscopy on 08/08/2023 patient is systemic anticoagulation with Eliquis on hold ? 08/08/2023 patient scheduled to undergo cystoscopy ? 08/09/2023; Case was discussed with urology Dr Carr was felt patient was not stable to undergo cystoscopy at this point 8. Nephrolithiasis ? Patient CT of the abdomen and pelvis demonstrated8 5 mm stone in the left mid ureter with mild left hydroureteronephrosis. Bilateral nonobstructing staghorn renal calculi. No right ureteral stones. No right hydronephrosis. Consult placed to urology from the ED 9. Hypokalemia ? Corrected per protocol repeat labs ordered for monitor ? 08/08/2023 patient potassium levels still low 10. Metabolic acidosis ? Started on bicarb drip with every 4 BMPs ordered 11. Hypocalcemia ? Multifactorial including possible increased oral intake as well as patient's hypoalbuminemia, ionized calcium ordered. Calcium gluconate ordered 12. Restless leg syndrome ? Patient is on ropinirole plan is to continue with home dose 13. Previous history of DVT ? Patient is on apixaban held in view of her presenting complaints 14. DVT prophylaxis ? Patient already on apixaban which is held in view of her active GI bleed Time spent in the patient's overall evaluation,decision-making process, review of diagnostic data, adjustment of management, discussion with other providers, nursing nursing and ancillary staff involved in patient's care documentation, 55 Minutes Charges/Coding Visit Charges Inpatient E&M: 15140 [facility] Hosp L3
[2023-08-09 09:49] LABS: Blood Gas Specimen Type VEN; O2 Delivery Device Not entered; SITE Not entered; VBG BASE EXCESS -18 mmol/L (-1.0-3.5); VBG Bicarbonate 9 mmol/L (22-26); VBG PO2 75 mmHg (25-40); VBG SO2 93 % (50-70); VBG TCO2 9 mmol/L (23-33); VBG pCO2 18.8 mmHg (41-51); VBG pH 7.28 (7.32-7.42)
[2023-08-09 09:54] LABS: Phosphorus 2.7 mg/dL (2.5-4.9)
--- NOTE | 2023-08-09 09:54 | CASEMGMT ---
Addendum entered by Sarah Guevara 08/09/23 11:25: Social Work [facility] responded, pt can return whenever she is ready, she is a prison pt. They will try to skill her at discharge however. Destiny confirmed through [facility] they do not have POA papers on file. [place] called daughter Estefani, message left to call SW back. MADELINE Roland Addendum entered by Sarah Guevara 08/09/23 10:14: Social Work Updates sent to [facility] via [facility]. SW also inquired if precert needed, and if they have POA papers to fax to [facility]. MADELINE Roland Original Note: Social Work SW spoke w/pt in room, confirmed discharge plan will be for pt to return to [facility], pt states has been at [facility] for 4-5 years. Pt confirms that Estefani Gamez is her POA for healthcare. [place] called [facility], message left for admissions to call SW back. SW will inquire if they have POA papers on file and will ask them to send them over. MADELINE Roland
[2023-08-09 09:59] LABS: Anion Gap 10 (5-15); BUN 19 mg/dL (7-18); BUN/Creat Ratio 20.1 RATIO (10-20); Calcium,Total 7.2 mg/dL (8.5-10.1); Chloride 127 mmol/L (98-107); Creatinine, Serum 0.94 mg/dL (0.55-1.02); EST Glomerular Filtration Rate 60 mL/min (>60); Est Glom Filt Rate - Afr Amer 73 mL/min (>60); Estimated Creatinine Clearance 35.42 ml/min; Glucose 244 mg/dL (74-106); Sodium Level 148 mmol/L (136-145)
[2023-08-09] MEDS: Norepinephrine 8 MG in 0.9% Normal Saline (250mL Bag) 242 ML 9.4 MG CONT INF (10:22)
[2023-08-09] MEDS: Sodium Bicarbonate 8.4% 50 ML Syringe 50 MEQ IV (10:23)
[2023-08-09] MEDS: Insulin Lispro 100 UNIT/ML INSULN.PEN SC (11:02)
--- NOTE | 2023-08-09 11:26 | CASEMGMT ---
Social Work As per pt, daughter Estefani Gamez is POA. We do not have papers on file at [facility]. SW reached out to [facility], they also do not have papers on file. SW called daughter and left a message, will ask her to bring in papers when she returns call. MADELINE Roland
[2023-08-09 11:37] LABS: Bedside Glucose 195 mg/dL (74-106)
[2023-08-09 11:45] LABS: Ionized Calcium Order ORDER TUBE
[2023-08-09 12:40] LABS: Troponin-I HS 1358 pg/mL (3.0-54.0)
--- NOTE | 2023-08-09 13:52 | CASEMGMT ---
SW attempted to call patient's daughter Estefani. There was no answer and SW left a message. Rut Link SHIPPING TRACK SUPERVISOR MEDICAL CARE ADMINISTRATOR
[2023-08-09] MEDS: Phenylephrine 40 mg/250 mL 0.9% NS 75 MG CONT INF (14:01)
--- NOTE | 2023-08-09 14:15 | NURSING ---
multiple conversations with Dr. Alcazar regarding patient's status, remains hypotensive maxed on vasopressin and neosynephrine. Called Estefani, daughter and step-daughter, Tasha and notified of patient condition, Dr. Alcazar also spoke with Estefani and Tasha with update on POC. This RN and Dr. Alcazar spoke with patient regarding wishes. Patient wishes to speak with hospice. Notified social worker aide, Rut.
--- NOTE | 2023-08-09 14:33 | PN.CC_ITS ---
Assessment & Plan Assessment/Plan (1) Acute kidney injury: (2) Acute GI bleeding: PLAN: Plan Assessment * Acute none anion gap metabolic acidosis most likely iatrogenic secondary to excessive normal saline infusion as well as underlying SANTO * SANTO * Septic shock secondary to UTI and cystitis * elevated troponins * Hematuria with very stones * Colitis * Acute GI bleed * Acute hypoxic resp failure on 2L NC * History of DVT on Eliquis * Obesity BMI of 31 * Debility * hx of CVA with R hemiparesis Plan -Bi-Carb drip was discontinued yesterday due to worsening respiratory status. Patient required to be on BiPAP for few hours. He -Her blood pressure continues to trend down while on vasopressin, Abdoulaye-Synephrine and stress dose steroids. Attempted to add Levophed however her heart rate again did not tolerate that and she was very tachycardic. Despite 2 pressors and hydrocortisone patient's MAP has been ranging between 40s to 50s. Discussed with the patient her current status as well as her underlying problems. She requested to be seen by hospice. Her daughter Estefani was updated as well as her stepdaughter Tasha over the phone. They were agreeable with the patient's wishes. Her code status was also changed to DNR/DNI -she was unable to undergo any of the procedures due to her hemodynamic derrangements -Her pH improved today but her bp continues to be low. Vancomycin was added yesterday and blood cultures ordered as well -Noted elevated trops however pt would like to proceed with hospice. ECHO was canceled -DVT ppx SCD -pt remains NPO, watch for hypoglycemia with q6h BGT. I spent 41 minutes of critical care time excluding the procedure time. I reviewed lab work, images, previous records and medication list. Subjective Subjective Patient continues to deteriorate. She has been hypotensive. On vasopressin, Abdoulaye-Synephrine and stress dose steroids. Attempted to add Levophed however her heart rate again did not tolerate that and she was very tachycardic. Despite 2 pressors and hydrocortisone patient's MAP has been ranging between 40s to 50s. Discussed with the patient her current status as well as her underlying problems. She requested to be seen by hospice. Her daughter Estefani was updated as well as her stepdaughter Tasha over the phone. They were agreeable with the patient's wishes. Her code status was also changed to DNR/DNI Objective Data Objective Data Vital Signs: Vital Signs Temp Pulse Resp BP Pulse Ox O2 Del Method O2 Flow Rate 36.4 C L 93 17 68/44 L 93 Nasal Cannula 2 08/09/23 12:00 08/09/23 13:00 08/09/23 13:00 08/09/23 13:00 08/09/23 13:00 08/09/23 13:00 08/09/23 13:00 FiO2 30 08/08/23 21:18 Oxygen Flow Rate (L/min) 2 Oxygen Delivery Method Nasal Cannula Weight: 78.5 kg Body Mass Index (BMI) 32.7 Intake & Output: Intake and Output for Last 24 Hours 08/07/23 08/08/23 08/09/23 23:59 23:59 23:59 Intake Total 3386.17 / 3386.17 5523.01 / 5593.51 1817.57 / 1817.57 Output Total 200 / 200 300 / 525 850 / 850 Balance 3186.17 / 3186.17 5223.01 / 5068.51 967.57 / 967.57 Lab / Micro Data 08/09/23 03:37 08/09/23 09:30 Labs: Laboratory Results - last 24 hr 08/08/23 16:00: Sodium 148 H, Potassium 3.6, Chloride 126 H, Carbon Dioxide 14.0 L, Anion Gap 8, BUN 22 H, Creatinine 1.10 H, Estim Creat Clear Calc 30.27, Est GFR (MDRD) Af Amer 61, Est GFR (MDRD) Non-Af 51 L, BUN/Creatinine Ratio 20.0, Glucose 172 H, Calcium 6.8 L 08/08/23 17:34: POC Glucose 167 H 08/08/23 20:15: Sodium 146 H, Potassium 3.7, Chloride 125 H, Carbon Dioxide 14.0 L, Anion Gap 7, BUN 20 H, Creatinine 1.06 H, Estim Creat Clear Calc 31.41, Est GFR (MDRD) Af Amer 64, Est GFR (MDRD) Non-Af 53 L, BUN/Creatinine Ratio 18.9, Glucose 228 H, Calcium 6.9 L 08/09/23 00:04: POC Glucose 187 H 08/09/23 00:18: Sodium 146 H, Potassium 3.5, Chloride 125 H, Carbon Dioxide 12.0 L, Anion Gap 9, BUN 19 H, Creatinine 0.94, Estim Creat Clear Calc 35.42, Est GFR (MDRD) Af Amer 74, Est GFR (MDRD) Non-Af 61, BUN/Creatinine Ratio 20.3 H, Glucose 250 H, Calcium 6.4 L* 08/09/23 03:37: WBC 9.4, RBC 4.97, Hgb 13.7, Hct 40.4, MCV 81.3, MCH 27.6, MCHC 33.9, RDW Std Deviation 56.5 H, RDW Coeff of Valerie 20.1 H, Plt Count 195, MPV 10.6, Immature Gran % (Auto) 1.600 H, Neut % (Auto) 89.4 H, Lymph % (Auto) 6.8 L , [place] % (Auto) 1.9, Eos % (Auto) 0.0, Baso % (Auto) 0.3, Absolute Neuts (auto) 8.4 H, Absolute Lymphs (auto) 0.64 L, Nucleated RBC % 0.3, Differential Comment SCANNED, Anisocytosis 1+, Sodium 147 H, Potassium 3.5, Chloride 126 H, Carbon Dioxide 12.0 L, Anion Gap 9, BUN 20 H, Creatinine 0.93, Estim Creat Clear Calc 35.80, Est GFR (MDRD) Af Amer 75, Est GFR (MDRD) Non-Af 62, BUN/Creatinine Ratio 21.6 H, Glucose 250 H, Calcium 7.3 L, Phosphorus 1.0 L*, Magnesium 2.6 08/09/23 03:48: Ionized Calcium 4.67 08/09/23 06:39: POC Glucose 219 H 08/09/23 09:30: Sodium 148 H, Potassium 4.0, Chloride 127 H*, Carbon Dioxide 11.0 L, Anion Gap 10, BUN 19 H, Creatinine 0.94, Estim Creat Clear Calc 35.42, Est GFR (MDRD) Af Amer 73, Est GFR (MDRD) Non-Af 60, BUN/Creatinine Ratio 20.1 H , Glucose 244 H, Calcium 7.2 L, Phosphorus 2.7, Troponin I High Sens 1358 H* 08/09/23 10:59: POC Glucose 195 H ABG Data ABG results: ABG 08/09/23 09:45 Specimen Type ALEX Sample Site Not entered O2 % 2.0 VBG pH 7.28 L VBG pO2 75 H VBG HCO3 9 L VBG Total CO2 9 L VBG O2 Sat (Calc) 93 H VBG Base Excess -18 L POC Mix VBG pCO2 Pt Tmp 18.8 L* O2 Delivery Device Not entered Crit Call To/Read Back Yes Blood Gas Notified Whom [facility] Blood Gas Notified Time 09:46:47 Physical Exam Narrative General alert in no acute distress HEENT. Normocephalic atraumatic, pupils equal and reactive Respiratory reduced air entry bilaterally, mild basal crackles Cardiac S1-S2, regular rate and rhythm GI abdomen soft and nontender MSK B/L lower extremity edema Skin no rashes Neuro R sided weakness, no dysarthria, no facial droop Charges/Coding Procedures Hospitalists Procedures: 44204 Critial Care 1st Hr
--- NOTE | 2023-08-09 14:41 | PRO.PCM_ITS ---
Procedure Report Date of Procedure: 08/09/23 Arterial Line Procedure Note INDICATION:shock PROCEDURE NUCLEAR CARDIOLOGY TECHNOLOGIST: Harper Alcazar MD Consent: During the informed consent discussion regarding the procedure, or treatment, explained the following to the patient: a. Nature of the procedure or treatment and who will perform the procedure or treatment. b. Necessity for procedure and the possible benefits. c. Risks and complications (most common and serious). d. Alternative treatments and the risks, benefits and side effects of each (including no treatment). e. Likelihood of the patient achieving his/her goals without this procedure and surgery treatment. f. Problems that might occur during the recuperation. g. Conflicts of interest, if any PROCEDURE SUMMARY: A time out was performed. My hands were washed immediately prior to the procedure. I wore a surgical cap, mask and sterile gloves throughout the procedure. The _ (L) wrist was prepped using chlorhexidine scrub and draped in sterile fashion using a three quarter sheet drape and sterile towels. The radial pulse was identified on US and the wrist was positioned in the usual fashion. Under US guidance, using the Arrow Radial Arterial Line Kit, a needle was inserted into the radial artery. Arterial blood was seen to pulsate in the flash chamber. The internal guidewire was advanced easily into the radial artery. The catheter was then advanced over the wire and the needle and wire were withdrawn. The catheter was sutured in place. A sterile opsite was placed over the catheter at the insertion site. The patient tolerated the procedure without worsening hemodynamic compromise. At the time of procedure completion, the catheter was connected to the cardiac tech and calibrated. Appropriate waveform and blood pressure tracing was observed. Estimated blood loss is <5cc. Procedures Hospitalists Procedures: [id number] Insertion Catheter Artery
--- NOTE | 2023-08-09 14:46 | CASEMGMT ---
SW was informed by RN that the physician spoke with patient, her daughter, and step daughter and all are in agreement with patient going Hospice. SW called Luz Maria at [facility] and explained the situation. Neither the daughter or step daughter are able to be present at [facility] for the meeting. Luz Maria said she will send RN Meagan right now. SW went to ICU and notified RN. SW also went to patient's room and spoke with patient. Patient is in agreement with meeting with hospice. Rut MANZO
--- NOTE | 2023-08-09 15:42 | NURSING ---
hospice nurse at bedside
--- NOTE | 2023-08-09 16:15 | CASEMGMT ---
Social Work SW received referral from RN that pt is requesting to make a HCPOA naming her step daughter Tasha Hernández as designee. RN reports pt's step daughter and her daughter Estefani Stevens are listed as contacts. RN contacted dgt Estefani who stated she has not spoke with pt in 6 years and does not want to make decisions for pt. SW inquired with pt about Estefani and she confirms she has not spoke to her in about 6 years. SW assisted pt in completing HCPOA naming Tasha Hernández as HCPOA. Document placed on chart, a copy given to the hospice nurse who is currently seeing pt and original given to pt. Demographics updated. ALBA Jay
--- NOTE | 2023-08-09 16:52 | CASEMGMT ---
SW updated [facility] on patient's situation. Rut Link OBSTETRICS TEACHER CLINICAL MANAGER
[2023-08-09] MEDS: fentaNYL 100 MCG/2 ML Ampul 25 MCG IV ×2 (17:11→21:53)
--- NOTE | 2023-08-09 17:13 | PN.GI_ITS ---
Subjective Subjective Patient's hemoglobin is improving. We were attempting to do an upper endoscopy today but she is on 2 pressors and she still has blood pressures in the 60s with rapid ventricular response. Objective Data Objective Data Vital Signs: Vital Signs Temp Pulse Resp BP Pulse Ox O2 Del Method O2 Flow Rate 97.6 F L 93 17 66/42 L 98 Nasal Cannula 2 08/09/23 12:00 08/09/23 14:00 08/09/23 14:00 08/09/23 14:00 08/09/23 14:00 08/09/23 16:00 08/09/23 16:00 FiO2 30 08/08/23 21:18 Oxygen Flow Rate (L/min) 2 Oxygen Delivery Method Nasal Cannula Weight: 173 lb 1.006 oz Body Mass Index (BMI) 32.7 Intake & Output: Intake and Output for Last 24 Hours 08/07/23 08/08/23 08/09/23 23:59 23:59 23:59 Intake Total 3386.17 / 3386.17 5523.01 / 5593.51 1917.57 / 1917.57 Output Total 200 / 200 300 / 525 925 / 925 Balance 3186.17 / 3186.17 5223.01 / 5068.51 992.57 / 992.57 Lab / Micro Data 08/09/23 03:37 08/09/23 09:30 Labs: Laboratory Results - last 24 hr 08/08/23 17:34: POC Glucose 167 H 08/08/23 20:15: Sodium 146 H, Potassium 3.7, Chloride 125 H, Carbon Dioxide 14.0 L, Anion Gap 7, BUN 20 H, Creatinine 1.06 H, Estim Creat Clear Calc 31.41, Est GFR (MDRD) Af Amer 64, Est GFR (MDRD) Non-Af 53 L, BUN/Creatinine Ratio 18.9, Glucose 228 H, Calcium 6.9 L 08/09/23 00:04: POC Glucose 187 H 08/09/23 00:18: Sodium 146 H, Potassium 3.5, Chloride 125 H, Carbon Dioxide 12.0 L, Anion Gap 9, BUN 19 H, Creatinine 0.94, Estim Creat Clear Calc 35.42, Est GFR (MDRD) Af Amer 74, Est GFR (MDRD) Non-Af 61, BUN/Creatinine Ratio 20.3 H, Glucose 250 H, Calcium 6.4 L* 08/09/23 03:37: WBC 9.4, RBC 4.97, Hgb 13.7, Hct 40.4, MCV 81.3, MCH 27.6, MCHC 33.9, RDW Std Deviation 56.5 H, RDW Coeff of Valerie 20.1 H, Plt Count 195, MPV 10.6, Immature Gran % (Auto) 1.600 H, Neut % (Auto) 89.4 H, Lymph % (Auto) 6.8 L , [place] % (Auto) 1.9, Eos % (Auto) 0.0, Baso % (Auto) 0.3, Absolute Neuts (auto) 8.4 H, Absolute Lymphs (auto) 0.64 L, Nucleated RBC % 0.3, Differential Comment SCANNED, Anisocytosis 1+, Sodium 147 H, Potassium 3.5, Chloride 126 H, Carbon Dioxide 12.0 L, Anion Gap 9, BUN 20 H, Creatinine 0.93, Estim Creat Clear Calc 35.80, Est GFR (MDRD) Af Amer 75, Est GFR (MDRD) Non-Af 62, BUN/Creatinine Ratio 21.6 H, Glucose 250 H, Calcium 7.3 L, Phosphorus 1.0 L*, Magnesium 2.6 08/09/23 03:48: Ionized Calcium 4.67 08/09/23 06:39: POC Glucose 219 H 08/09/23 09:30: Sodium 148 H, Potassium 4.0, Chloride 127 H*, Carbon Dioxide 11.0 L, Anion Gap 10, BUN 19 H, Creatinine 0.94, Estim Creat Clear Calc 35.42, Est GFR (MDRD) Af Amer 73, Est GFR (MDRD) Non-Af 60, BUN/Creatinine Ratio 20.1 H , Glucose 244 H, Calcium 7.2 L, Phosphorus 2.7, Troponin I High Sens 1358 H* 08/09/23 10:59: POC Glucose 195 H ABG Data ABG results: ABG 08/09/23 09:45 Specimen Type ALEX Sample Site Not entered O2 % 2.0 VBG pH 7.28 L VBG pO2 75 H VBG HCO3 9 L VBG Total CO2 9 L VBG O2 Sat (Calc) 93 H VBG Base Excess -18 L POC Mix VBG pCO2 Pt Tmp 18.8 L* O2 Delivery Device Not entered Crit Call To/Read Back Yes Blood Gas Notified Whom [facility] Blood Gas Notified Time 09:46:47 Physical Exam Narrative General alert in no acute distress HEENT. Normocephalic atraumatic, pupils equal and reactive Respiratory reduced air entry bilaterally, mild basal crackles Cardiac S1-S2, regular rate and rhythm GI abdomen soft and nontender MSK B/L lower extremity edema Skin no rashes Neuro R sided weakness, no dysarthria, no facial droop Assessment & Plan Assessment/Plan (1) Diarrhea: QUALIFIERS: Diarrhea type: unspecified type Qualified Code(s): R19.7 - Diarrhea, unspecified (2) Acute GI bleeding: PLAN: Plan 83 F who presents with multiple comorbidities including DVT for which patient is on systemic anticoagulation with apixaban, presented with rectal bleeding. -Acute diarrhea, acute C. difficile negative, enteric panel negative -Acute intermittent episode of hematochezia, stool for occult blood is positive in the ED CT scan does show ischemic colitis. She does have a history of ischemic c olitis. I am okay with her antibiotics. I think that she should be treated with vitamin K 5 mg IV. I am not sure if your hypotension is secondary to GI bleed in the setting of urinary tract infection which could lead to urosepsis. 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 She received transfusion of packed red blood cells. I ordered 2 more units of packed red blood cells due to hypotension. She will be scheduled for EGD tomorrow. I will put her on PPI drip and octreotide drip. Repeat CMP after patient has finished getting potassium replacement for potassium of 2.4.. 08/08-n.p.o. after midnight for EGD tomorrow. Hemoglobin slightly improved. Patient remains hypotensive and will likely need pressor therapy. 08/09-hemoglobin continues to improve. I think conservative therapy regarding upper GI bleed is okay for now. Continue PPI therapy. When she is h emodynamically stable we can pursue an upper endoscopy. Charges/Coding Visit Charges Inpatient E&M: 40988 Subs Hosp L3
--- NOTE | 2023-08-09 17:16 | NURSING ---
spoke with Tasha, step-daughter/POA multiple times on the phone, assisted patient with facetiming Tasha, per patient wishes will stop neosynephrine and vasopressin and continue with comfort care measures.
[2023-08-09] MEDS: LORazepam 2 MG/ML Syringe IV (20:00)
[2023-08-10] MEDS: LORazepam 2 MG/ML Syringe IV ×2 (00:05→04:14)
[2023-08-10] MEDS: 0.9% Saline Lock 10 ML Syringe IV ×4 (02:05→10:45)
[2023-08-10] MEDS: fentaNYL 100 MCG/2 ML Ampul 25 MCG IV ×3 (02:05→10:45)
--- NOTE | 2023-08-10 07:50 | PN.HOSP_ITS ---
Reason for Visit Reason for Visit: Diagnoses Gastrointestinal hemorrhage, unspecified (08/06/23) Acute kidney failure, unspecified (08/06/23) Calculus of ureter (08/06/23) Urinary tract infection, site not specified (08/06/23) Diarrhea, unspecified (08/06/23) Subjective Subjective Patient CODE STATUS was changed to DNR CC the day prior due to rapidly deteriorating clinical condition. Instituted hospice care with symptom management Objective Data Objective Data Vital Signs: Vital Signs Temp Pulse Resp BP Pulse Ox O2 Del Method O2 Flow Rate 97.5 F L 97 22 H 26/18 L 68 Room Air 2 08/09/23 21:50 08/09/23 21:50 08/09/23 21:50 08/09/23 21:50 08/09/23 21:50 08/09/23 21:50 08/09/23 16:00 FiO2 30 08/08/23 21:18 Oxygen Flow Rate (L/min) 2 Oxygen Delivery Method Room Air Weight: 78.5 kg Body Mass Index (BMI) 32.7 Intake & Output: Intake and Output for Last 24 Hours 08/08/23 08/09/23 08/10/23 23:59 23:59 23:59 Intake Total 5523.01 / 5593.51 2176.27 / 2176.27 Output Total 300 / 525 1150 / 1150 0 / 0 Balance 5223.01 / 5068.51 1026.27 / 1026.27 0 / 0 Lab / Micro Data 08/09/23 03:37 08/09/23 09:30 Labs: Laboratory Results - last 24 hr 08/09/23 09:30: Sodium 148 H, Potassium 4.0, Chloride 127 H*, Carbon Dioxide 11.0 L, Anion Gap 10, BUN 19 H, Creatinine 0.94, Estim Creat Clear Calc 35.42, Est GFR (MDRD) Af Amer 73, Est GFR (MDRD) Non-Af 60, BUN/Creatinine Ratio 20.1 H , Glucose 244 H, Calcium 7.2 L, Phosphorus 2.7, Troponin I High Sens 1358 H* 08/09/23 10:59: POC Glucose 195 H ABG Data ABG results: ABG 08/09/23 09:45 Specimen Type ALEX Sample Site Not entered O2 % 2.0 VBG pH 7.28 L VBG pO2 75 H VBG HCO3 9 L VBG Total CO2 9 L VBG O2 Sat (Calc) 93 H VBG Base Excess -18 L POC Mix VBG pCO2 Pt Tmp 18.8 L* O2 Delivery Device Not entered Crit Call To/Read Back Yes Blood Gas Notified Whom [facility] Blood Gas Notified Time 09:46:47 Physical Exam Narrative GENERAL: cooperative HEENT: Atraumatic; normocephalic EYES; Anicteric, Normal Conjunctiva NECK; supple, normal thyroid, RESPIRATORY: Diminished to auscultation CARDIOVASCULAR: Regular S1 S2, GI: soft, normoactive bowel sounds, : No Renal angle tenderness; EXTREMITIES: No edema, no clubbing, MUSCULOSKELETAL: no muscle wasting NEURO: Awake; no lateralizing signs. SKIN: No Rash PSYCH; Flat affect Assessment & Plan Assessment/Plan (1) Acute lower gastrointestinal bleeding: (2) Acute kidney injury: PLAN: Plan An 83 F who presents with multiple comorbidities including DVT for which patient is on systemic anticoagulation with apixaban, presented with rectal bleeding. Patient symptoms started on the morning of her admission. CT of the abdomen and pelvis obtained on admission did show Thick-walled urinary bladder with adjacent stranding, consistent with cystitis. Bowel wall thickening in the sigmoid colon, consistent with colitis. 5 mm stone in the left mid ureter with mild left hydroureteronephrosis. Bilateral nonobstructing staghorn renal calculi. No right ureteral stones. 1. Acute lower GI bleed ? Secondary to colitis in the setting of systemic anticoagulation use with a pixaban. Patient apixaban held on admission admitted to monitored bed patient was typed and crossmatched for 2 unit PRBC ordered H&H every 6 consult placed to GI from the ED. Patient started on ciprofloxacin as well as Flagyl ? 08/07/2023 patient remains on antibiotic therapy was seen in consultation by GI noted recommendations reviewed ? 08/09/2023 patient has received total of 3 unit PRBC ? 08/10/2023; currently under hospice care 2. Acute cystitis ? Urine culture sent patient started on ciprofloxacin ? 08/09/2023 blood culture still pending 3. Hypotension secondary to hypovolemic shock from GI bleed as well as septic shock from acute cystitis ? Secondary to patient GI bleed resuscitated with IV fluids admitted to monitored bed for further management. ? 08/08/2023 patient still remains hypotensive, ordered random cortisol level ?08/09/2023 patient blood pressure still remains low random cortisol level and evidence of adrenal insufficiency patient subsequently started on midodrine ? 08/10/2023atient CODE STATUS was changed to DNR CC the day prior due to rapidly deteriorating clinical condition. Instituted hospice care with symptom management 4. Anemia ? Secondary to acute blood loss anemia. Monitoring H&H every 6 with plans to transfuse if patient becomes symptomatic or hemoglobin falls below 7 ? 08/08/2023 patient hemoglobin did drop to 6.9 today prior was transfused 1 unit PRBC ?08/09/2023 patient has received total of 3 unit PRBC 5. Acute kidney injury ? Patient creatinine on 06/05/2023 was 0.62 creatinine on admission was 2.19 started on IV fluid with subsequent monitoring of electrolytes ordered ? 08/08/2023 acute kidney injury resolved 6. Hyperchloremic hypernatremia ? Attributed to aggressive IV fluid resuscitation patient's possibly discontinued started on D5.45 saline with every 4 BMP ordered 7. Hematuria ? Plan is for patient to undergo cystoscopy on 08/08/2023 patient is systemic anticoagulation with Eliquis on hold ? 08/08/2023 patient scheduled to undergo cystoscopy ? 08/09/2023; Case was discussed with urology Dr Carr was felt patient was not stable to undergo cystoscopy at this point 8. Nephrolithiasis ? Patient CT of the abdomen and pelvis demonstrated8 5 mm stone in the left mid ureter with mild left hydroureteronephrosis. Bilateral nonobstructing staghorn renal calculi. No right ureteral stones. No right hydronephrosis. Consult placed to urology from the ED 9. Hypokalemia ? Corrected per protocol repeat labs ordered for monitor ? 08/08/2023 patient potassium levels still low 10. Metabolic acidosis ? Started on bicarb drip with every 4 BMPs ordered 11. Hypocalcemia ? Multifactorial including possible increased oral intake as well as patient's hypoalbuminemia, ionized calcium ordered. Calcium gluconate ordered 12. Restless leg syndrome ? Patient is on ropinirole plan is to continue with home dose 13. Previous history of DVT ? Patient is on apixaban held in view of her presenting complaints 14. DVT prophylaxis ? Patient already on apixaban which is held in view of her active GI bleed Time spent in the patient's overall evaluation,decision-making process, review of diagnostic data, adjustment of management, discussion with other providers, nursing nursing and ancillary staff involved in patient's care documentation, 35 Minutes Charges/Coding Visit Charges Inpatient E&M: 23574 Subs Hosp L2
[2023-08-10 08:06] VITALS: BP 42/33; PULSE 91; RESP 20; TEMP 35.7
--- NOTE | 2023-08-10 11:12 | NURSING ---
After repositioning pt and giving PRN pain medication pt started to have episodes of apnea. HR down to 40's. Daughter Estefani and granddaughter (they were off unit getting food) brought back to bedside. Loss of pulse. Absence of heart tones and VS verified by A Gen RN and this RN. Dr Felton and Dr Anaya made aware of pt expiring. Call placed to Tasha, (pt contact and POA) to notify her of pt passing.
--- NOTE | 2023-08-10 11:15 | PCM.DEATH ---
Preliminary Cause of Preliminary Cause of Preliminary Cause of : Shock from hypovolemic shock and septic shock from acute cystitis Date of Admission: 08/06/23 Date of : 08/10/23 Principle Diagnosis Problem List: Active and Suspected Problems (Updated 08/06/23 @ 16:[address] Price Melgar, DO) Acute kidney injury (Acute) Calculus of left ureter (Acute) Acute lower gastrointestinal bleeding (Acute) Weakness (Acute) Acute UTI (Acute) Hospital Course Patient an 83 F who presents with multiple comorbidities including DVT for which patient is on systemic anticoagulation with apixaban, presented with rectal bleeding. Patient symptoms started on the morning of her admission. CT of the abdomen and pelvis obtained on admission did show Thick-walled urinary bladder with adjacent stranding, consistent with cystitis. Bowel wall thickening in the sigmoid colon, consistent with colitis. 5 mm stone in the left mid ureter with mild left hydroureteronephrosis. Bilateral nonobstructing staghorn renal calculi. No right ureteral stones. An assessment of shock secondary to hypovolemic shock from GI bleed as well as as well as septic shock acute cystitis. Treatment was initiated per protocol including patient being transfused with 3 unit PRBC as well as being on broad-spectrum antibiotic therapy with consultation placed to salvage grinder, urologist as well as automobile damage field appraiser. Patient clinical condition continued to deteriorate despite optimal management. Discussions were held with family patient CODE STATUS changed from full code to DNR CC. Palliative care symptom management orders initiated. Patient was found with heart tones as well as spontaneous breathing. Patient was pronounced on 08/10/2023 at 1108 family was at bedside. Visit Charges Inpatient E&M: 88621 Disch Hosp
== END 2023-08-10 13:15 | DRG 871 ==
LOC: ED 13:14 → ICU 14:38
PROVIDERS: Emergency Medicine; Internal Medicine; Admitting Provider Internal Medicine; Emergency Provider Emergency Medicine; PCP Family Medicine; Visit Provider Internal Medicine
DX: A41.9 Sepsis, unspecified organism (principal); J96.01 Acute respiratory failure with hypoxia; R65.21 Severe sepsis with septic shock; K55.9 Vascular disorder of intestine, unspecified; E87.0 Hyperosmolality and hypernatremia; D62 Acute posthemorrhagic anemia; E87.21 Acute metabolic acidosis; I69.351 Hemiplegia and hemiparesis following cerebral infarction affecting right dominant side; N17.9 Acute kidney failure, unspecified; K62.5 Hemorrhage of anus and rectum; N13.6 Pyonephrosis; N30.00 Acute cystitis without hematuria; R57.1 Hypovolemic shock; N18.9 Chronic kidney disease, unspecified; G25.81 Restless legs syndrome; E78.5 Hyperlipidemia, unspecified; E87.6 Hypokalemia; Z68.31 Body mass index [BMI] 31.0-31.9, adult; Z79.01 Long term (current) use of anticoagulants; Z66 Do not resuscitate; Z87.891 Personal history of nicotine dependence; E66.9 Obesity, unspecified; Z51.5 Encounter for palliative care
CPT/HCPCS: 36569; 71045; 74176; 80048; 80076; 81001; 82330; 82533; 82803; 82962; 83605; 83690; 83735; 84100; 84484; 85014; 85018; 85025; 85610; 85730; 86850; 86900; 86901; 86920; 86922; 87040; 93005; 94002; 97802; 97803; 99285; J7030; J7040; J7050; P9016; P9047; P9612; A4216; C1751; J0612; J0744; J2405; J3490